=== PATIENT | female | born 1990 | race African-American/Black ===

== ENCOUNTER 2025-05-03 13:01 | Outpatient (CLI) | payer OTHER, SELFPAY ==
[2025-05-03 13:51] VITALS: BP 127/58; PULSE 88
--- OUTSIDE RECORDS SUMMARY | 2025-05-03 14:18 | XMS_ITS | Continuity of Care Document ---
Author Organization [facility] Address [address] [place] [address] [place] [address] Assessment No assessment recorded. Plan of Treatment Reminders Order Date Submit Date Provider Last Modified By Organization Details Last Modified Time Details Appointments OB ROUTINE 2024 09:00A M QASIM LU MD Not available Not available Not available U/S OB BPP 2025 08:30A M ULTRASOUND Not available Not available Not available NST 2025 09:00A M NST SCHEDULE Not available Not available Not available OB ROUTINE 2025 09:30A M Vicky Burris CNM Not available Not available Not available INDUCTI ON 2025 12:00P M Vicky Burris CNM Not available Not available Not available U/S OB BPP 2025 08:30A M ULTRASOUND Not available Not available Not available NST 2025 09:00A M NST SCHEDULE Not available Not available Not available OB ROUTINE 2025 09:45A M Vicky Burris CNM Not available Not available Not available Lab None recorde d. Referral None recorde d. Procedures None recorde d. Surgeries None recorde d. Imaging US, obstetr ic, follow- up 2024 025 [email or web address] [facility], [address], [address], [place], [address], 03/21/2025 18:48:46 Medication Orders None recorde d. Patient TargetsNo targets recorded. Patient InstructionsNo instructions recorded. Reason for Referral None Reported. Results Created Date Observation Date Name Description Value Unit Range Abnormal Flag Note LastModifiedBy Organization Detail LastModifiedTime 03/02/2003/02/2025 HEMAT OCRIT (HCT) HCT 36.2 % (based on docume nted legal sex) 34.0-4 5.0 Not Available [facility] (Lab) [address], [place], [address], 03/03/2025 12:36:52 03/02/2003/02/2025 CBC W/DIF F WBC 14.2 10'3/ uL 3.5-10 .5 high Not Available [facility] (Lab) [address], [place], [address], 03/03/2025 12:36:52 03/02/20 25 03/02/2025 CBC W/DIF F RBC 4.65 10'6/ uL (based on docume nted legal sex) 3.80-5 .20 Not Available [facility] (Lab) [address], [place], [address], 03/03/2025 12:36:52 03/02/20 25 03/02/2025 CBC W/DIF F HGB 12.7 g/dL (based on docume nted legal sex) 11.6-1 5.4 Not Available [facility] (Lab) [address], [place], [address], 03/03/2025 12:36:52 03/02/20 25 03/02/2025 CBC W/DIF F HCT 36.2 % (based on docume nted legal sex) 34.0-4 5.0 Not Available [facility] (Lab) [address] [place], [address], 03/03/2025 12:36:52 03/02/20 25 03/02/2025 CBC W/DIF F MCV 77.8 fL 80.0-9 9.0 low Not Available [facility] (Lab) [address] [place], [address], 03/03/2025 12:36:52 03/02/20 25 03/02/2025 CBC W/DIF F MCH 27.3 pg 27.0-3 4.0 Not Available [facility] (Lab) [address], [place], [address], 03/03/2025 12:36:52 03/02/20 25 03/02/2025 CBC W/DIF F MCHC 35.1 g/dL 32.0-3 5.5 Not Available [facility] (Lab) [address], [place], [address], 03/03/2025 12:36:52 03/02/2003/02/2025 CBC W/DIF F RDW 15.1 % 11.0-1 5.0 high Not Available [facility] (Lab) [address], [place], [address], 03/03/2025 12:36:52 03/02/20 25 03/02/2025 CBC W/DIF F plt 480 10'3/ uL 150-40 0 high Not Available [facility] (Lab) [address], [place], [address], 03/03/2025 12:36:52 03/02/20 25 03/02/2025 CBC W/DIF F MPV 9.4 fL 8.8-12 .1 Not Available [facility] (Lab) [address], [place], [address], 03/03/2025 12:36:52 03/02/20 25 03/02/2025 CBC W/DIF F NRBC's 0.0 % 0.0 Not Available [facility] (Lab) [address], [place], [address], 03/03/2025 12:36:52 03/02/20 25 03/02/2025 CBC W/DIF F absolute NRBCs 0.0 10'3/ uL no refere nce range establ ished Not Available [facility] (Lab) [address], [place], [address], 03/03/2025 12:36:52 03/02/20 25 03/02/2025 CBC W/DIF F neutrophils 75.4 % 34.0-7 3.0 high Not Available [facility] (Lab) [address], [place], [address], 03/03/2025 12:36:52 03/02/20 25 03/02/2025 CBC W/DIF F lymphocytes 17.1 % 15.0-5 0.0 Not Available [facility] (Lab) [address], [place], [address], 03/03/2025 12:36:52 03/02/20 25 03/02/2025 CBC W/DIF F monocytes 4.7 % 1.0-15 .0 Not Available [facility] (Lab) [address], [place], [address], 03/03/2025 12:36:52 03/02/20 25 03/02/2025 CBC W/DIF F eosinophils 1.4 % 0.0-8. 0 Not Available [facility] (Lab) [address], [place], [address], 03/03/2025 12:36:52 03/02/20 25 03/02/2025 CBC W/DIF F basophils 0.4 % 0.0-2. 0 Not Available [facility] (Lab) [address], [place], [address], 03/03/2025 12:36:52 03/02/20 25 03/02/2025 CBC W/DIF F immature granulocytes 1.0 % no define d refere nce range Immat ure Granu locyt es (IG) repre sents autom ated enume ratio n of Metam yeloc ytes, Myelo cytes and Promy elocy arnel when IG is < 5%. Blast s are not inclu ded in IG and repor sanjuana separ ately if prese nt. Not Available [facility] (Lab) [address], [place], [address], 03/03/2025 12:36:52 03/02/2003/02/2025 CBC W/DIF F absolute neutrophils 10.7 10'3/ uL 1.5-8. 0 high Not Available [facility] (Lab) [address], [place], [address], 03/03/2025 12:36:52 03/02/20 25 03/02/2025 CBC W/DIF F absolute lymphocytes 2.4 10'3/ uL 1.0-4. 0 Not Available [facility] (Lab) [address], [place], [address], 03/03/2025 12:36:52 03/02/20 25 03/02/2025 CBC W/DIF F absolute monocytes 0.7 10'3/ uL 0.2-1. 0 Not Available [facility] (Lab) [address], [place], [address], 03/03/2025 12:36:52 03/02/20 25 03/02/2025 CBC W/DIF F absolute eosinophils 0.2 10'3/ uL 0.0-0. 6 Not Available [facility] (Lab) [address], [place], [address], 03/03/2025 12:36:52 03/02/20 25 03/02/2025 CBC W/DIF F absolute basophils 0.1 10'3/ uL 0.0-0. 3 Not Available [facility] (Lab) [address], [place], [address], 03/03/2025 12:36:52 03/02/20 25 03/02/2025 CBC W/DIF F absolute immature granulocytes 0.1 10'3/ uL 0.00-0 .10 Refer ence range s for nonbi nary/ inter sex or unspe cifie d gende r patie nts have not been estab lishe kareem Jacob e refer to the follo wing table for range s estab lishe d for cisge nder patie nts and evalu ate in the clini matthieu [place] xt of the indiv idual patie nt: https :[email or web address] almonte book. nm.or g/gen derx Not Available [facility] (Lab) [address], [place], [address], 03/03/2025 12:36:52 03/02/2003/02/2025 HEMOG LOBIN (HGB) HGB 12.7 g/dL (based on docume nted legal sex) 11.6-1 5.4 Not Available [facility] (Lab) [address], [place], [address], 03/03/2025 12:36:52 03/02/2003/02/2025 GTT - GESTA MIGUEL ÁNGEL L SCREE N, ACOG OB glucose, 1 hour screen 179 mg/dL 70-135 high Not Available [facility] (Lab) [address], [place], [address], 03/03/2025 12:36:53 03/02/2003/02/2025 HEPAT ITIS B SURFA CE ANTIG EN hepatitis B surface antigen Non-re active non-re active The test metho d is elect deandre mil inesc ence immun oassa y perfo rmed on the Deandre Stan e801. Value s obtai pauline with diffe rent assay metho ds by other labor atori es canno t be used inter fonseca eably . Not Available [facility] (Lab) [address], [place], [address], 03/03/2025 12:36:53 03/02/2003/02/2025 HIV 1/2 ANTIG EN/AN TIBOD Y, REFLE X CONFI RMATI ON HIV antigen/anti body Nonrea ctive nonrea ctive HIV-1 antig en and HIV-1 /HIV- 2 antib odies were not detec sanjuana. No labor atory evide nce of HIV infec tion. Not Available [facility] (Lab) [address], [place], [address], 03/03/2025 12:36:54 03/02/2003/02/2025 HEPAT ITIS C ANTIB ANN SCREE N, REFLE X TO CONFI RMATI ON hepatitis C antibody Non-re active non-re active Antib odies to HCV Not Detec sanjuana, does not exclu de the possi bilit y of expos ure to HCV. The test metho d is elect deandre milum inesc ence immun oassa y perfo rmed on the Deandre Stan e801. Value s obtai pauline with diffe rent assay metho ds by other labor atori es canno t be used inter fonseca eably . Not Available [facility] (Lab) [address], [place], [address], 03/03/2025 12:36:54 03/02/2003/02/2025 TYPE/ RH/SC REEN ABO/Rh type A POS Not Available [facility] (Lab) [address], [place], [address], 03/03/2025 12:36:55 03/02/2003/02/2025 TYPE/ RH/SC REEN antibody screen NEG Not Available [facility] (Lab) [address], [place], [address], 03/03/2025 12:36:55 03/02/2003/02/2025 TYPE/ RH/SC REEN exp date 2024 23:59 Not Available [facility] (Lab) [address], [place], [address], 03/03/2025 12:36:55 03/02/20 25 03/02/2025 RUBEL LA IGG ANTIB ANN, QUANT rubella antibodies, IgG Reacti ve reacti ve Not Available [facility] (Lab) [address] [place], [address], 03/03/2025 12:36:55 03/02/20 25 03/02/2025 RUBEL LA IGG ANTIB ANN, QUANT rubella antibodies, IgG quant 33.3 IU/mL >=10 Non-r eacti ve (Non- Immun e) <10 IU/mL React chris (Immu ne) > or = 10 IU/mL Not Available [facility] (Lab) [address], [place], [address], 03/03/2025 12:36:55 03/02/20 25 03/02/2025 HEMOG LOBIN A1C hemoglobin A1C 6.1 % 4.0-5. 6 high The Ameri can [employer] arnel [employer] iatio n recom mends that a prima ry goal of thera py shoul d be a HBA1C of < 7% and that physi cians shoul d reeva luate the treat ment regim en in patie nts with HBA1C value s consi stent ly > 8%. <5.7% Yaimle l 5.7 - 6.4% Incre ased risk for diabe arnel >=6.5 % Diagn ostic of diabe arnel <7.0% Goal of thera py >8.0% Actio n sugge sted Not Available [facility] (Lab) [address], [place], [address], 03/03/2025 12:36:55 03/02/20 25 03/02/2025 RPR SCREE N, REFLE X TITER /CONF IRMAT ION RPR qualitative Nonrea ctive nonrea ctive Not Available [facility] (Lab) [address], [place], [address], 03/03/2025 12:36:56 03/08/20 25 03/08/2025 GTT - GESTA MIGUEL ÁNGEL L, 3 HOUR, ACOG glucose, fasting acog 83 mg/dL 70-94 Not Available [facility] (Lab) [address] [place], [address], 03/09/2025 07:22:26 03/08/20 25 03/08/2025 GTT - GESTA MIGUEL ÁNGEL L, 3 HOUR, ACOG glucose, 1 hour acog 167 mg/dL 70-179 Not Available [facility] (Lab) [address], [place], [address], 03/09/2025 07:22:26 03/08/20 25 03/08/2025 GTT - GESTA MIGUEL ÁNGEL L, 3 HOUR, ACOG glucose, 2 hour acog 186 mg/dL 70-154 high Not Available [facility] (Lab) [address], [place], [address], 03/09/2025 07:22:26 03/08/20 25 03/08/2025 GTT - GESTA MIGUEL ÁNGEL L, 3 HOUR, ACOG glucose, 3 hour acog 173 mg/dL 70-139 high Not Available [facility] (Lab) [address], [place], [address], 03/09/2025 07:22:26 02/17/20 25 02/16/2025 US, obste tric, follo w-up No observ ation record ed. [email or web address] [facility] [address], [place], [address], 02/16/2025 17:56:15 02/17/20 25 02/16/2025 US, obste tric, follo w-up No observ ation record ed. [email or web address] [facility] [address], [place], [address], 03/01/2025 12:13:11 03/01/2003/01/2025 US, obste tric, limit ed No observ ation record ed. [email or web address] [facility] [address], [place], [address], 03/02/2025 09:56:04 03/01/20 25 03/01/2025 US, obste tric, limit ed No observ ation record ed. [email or web address] [facility] [address], [place], [address], 03/01/2025 16:15:36 03/21/20 25 03/21/2025 US, obste tric, follo w-up No observ ation record ed. [email or web address] [facility] [address], [place], [address], 03/21/2025 15:50:40 03/21/20 25 03/21/2025 US, obste tric, follo w-up No observ ation record ed. [email or web address] [facility] [address], [place], [address], 03/25/2025 16:14:26 04/04/20 25 04/04/2025 imagi ng/di agnos tic resul t No observ ation record ed. [facility] [address], [place], [address], 04/05/2025 10:52:00 04/12/20 25 04/12/2025 US, obste tric, follo w-up No observ ation record ed. [email or web address] [address], [place], [address], 04/12/2025 14:17:26 04/12/20 25 04/12/2025 US, obste tric, follo w-up No observ ation record ed. [email or web address] [facility] [address], [place], [address], 04/15/2025 10:42:08 04/26/20 25 04/26/2025 US, obste tric, follo w-up No observ ation record ed. [email or web address] [facility] [address], [address], 04/26/2025 16:57:52 04/27/20 25 04/26/2025 US, obste tric, follo w-up No observ ation record ed. [email or web address] [facility] [address] [place], [address], 04/28/2025 22:03:11 04/30/20 25 04/30/2025 imagi ng/di agnos tic resul t No observ ation record ed. [facility] [address], [place], [address], 05/02/2025 11:12:20 05/03/20 25 05/03/2025 imagi ng/di agnos tic resul t No observ ation record ed. [facility] [address] [place], [address], 05/03/2025 13:20:09 05/03/20 25 05/03/2025 imagi ng/di agnos tic resul t No observ ation record ed. [facility] [address], [place], [address], 05/03/2025 13:24:51 Result Notes None recorded. Problems Name Problem SNOMED Code Status Onset Date Resolution Date Notes Provider Name and Address Organization Details Recorded Time 61126569 Active 2024 Nikki miguel [facility] 15:10:19 Uncomplic ated asthma 992476700 Active 2024 albuterol inhlaer prn 2 rounds steroids in plan daily inhaler Vicky Burris CNM [address], [place], [address], [place] [facility] 17:45:27 Platelet count above reference range 762944752 Active 2024 480 @ 28wks rpt labs Olesya miguel [facility] 12:16:37 Gestation al diabetes mellitus 37711564 Active 2024 checking bs QID, serial growth us Faxed Referral [facility] for DT 03/09 Olesya miguel [facility] 5 12:25:55 Infection by Trichomon as 80381661 Active [address] [facility], [facility] 5 14:24:54 Infection by Trichomon as 53348036 Active [address] [facility], [facility] 5 14:24:54 Notes:Some problems listed i n Document: #[id number] could not be added to this patient's chart. Please review this document and add these problems to the patient's chart manually as needed. Problem Notes None recorded. Medical Equipment None Reported. Allergies Allergen ID Allergen Name Allergen Category Reaction Reaction Severity Criticality Documentation Date Start Date Code Code System Note Provider Name and Address Organization Details Recorded Time 57941 banana extract food,medi cation anaphylax is Not available Not available 02/16/2025 25365 9 RxNorm Nikki Rosalie [facility] 14:34:13 Medications Name Sig Start Date Stop Date Status Note LastModified by Organization Details LastModified Time aspirin 81 mg capsule active Not Available Not Available N ot Available metformin 500 mg tablet TAKE 1 TABLET BY MOUTH TWICE DAILY active Not Available Not Available No t Available fluconazole 150 mg tablet TAKE 1 TABLET BY MOUTH DIRECTED active Not Available Not Available No t Available prednisone 20 mg tablet PLEASE SEE ATTACHED FOR DETAILED DIRECTION S 02/16 completed Not Available Not Available Not Available metronidazo le 500 mg tablet TAKE 4 TABLETS BY MOUTH 1 TIME AT THE SAME TIME active Not Available Not Available No t Available albuterol sulfate HFA 90 mcg/actuati on aerosol inhaler INHALE 2 PUFFS EVERY 4 HOURS BY INHALATIO N ROUTE NEEDED, FOR WHEEZING. active Not Available Not Available No t Available Microlet Lancet TEST FOUR TIMES DAILY active Not Available Not Available No t Available 1 daily 02/16 completed Not Available Not Available Not Available Pulmicort Flexhaler 180 mcg/actuati on breath activated TAKE 1 PUFF BY MOUTH 2 TIMES PER DAY FOR 30 DAYS START TAKING AFTER PREDNISON E active Not Available Not Available No t Available Sure Comfort Pen Needle 31 gauge x 3/16 USE 1 NEEDLE INSTRUCTE D 2 TIMES DAILY active Not Available Not Available No t Available budesonide- formoterol HFA 80 mcg-4.5 mcg/actuati on aerosol inhaler active Not Available Not Available Not Available Lantus Solostar U-100 Insulin 100 unit/mL (3 mL) subcutaneou s pen PRIME NEEDLE WITH 2 UNITS THEN INJECT 10 UNITS UNDER THE SKIN EVERY MORNING AND AT NIGHT. INCREASE DIRECTED BY MD UP TO MAX OF 50 UNITS DAILY active Not Available Not Available No t Available + DHA 28 mg iron-800 mcg-200 mg oral pack active Not Available Not Available No t Available Contour Plus Test Strip TEST FOUR TIMES DAILY active Not Available Not Available No t Available Contour Plus Blue Meter USE TO TEST FOUR TIMES DAILY active Not Available Not Available No t Available Vitals None Recorded Social History Question Answer Notes LastModified by Organizat ion Details LastModified Time Tobacco Smoking Status Never Smoker Nikki miguel, [facility] 02/16/2025 14:36:54 Do You Have An Advance Directive? No [email or web address] Information n ot available 02/16/2025 How Many Years Have You Consumed Alcohol? 13 Information not available 02/16/2025 Are You Blind Or Do You Have Difficulty Seeing? No [email or web address] Information n ot available 02/16/2025 What Is Your Level Of Caffeine Consumption? Occasional [email or web address] Information not available 02/16/2025 In The 14 Days Before Symptom Onset, Have You Had Close Contact With A Laboratory-confirm ed COVID-19 While That Case Was Ill? No [email or web address] Information n ot available 02/16/2025 In The 14 Days Before Symptom Onset, Have You Had Close Contact With A Person Who Is Under Investigation For COVID-19 While That Person Was Ill? No [email or web address] Information not available 02/16/2025 Have You Been To An Area Known To Be High Risk For COVID-19? No Information not available 02/16/2025 Are You Deaf Or Do You Have Serious Difficulty Hearing? No [email or web address] Information not available 02/16/2025 What Type Of Diet Are You Following? REGULAR [email or web address] Information n ot available 02/16/2025 What Is The Highest Grade Or Level Of School You Have Completed Or The Highest Degree You Have Received? MO19438-5 Information not available 02/16/2025 Are There Any Guns Present In Your Home? No Information not available 02/16/2025 Do You Use Protection During Sex? Always [email or web address] Information not available 02/16/2025 Do You Use Your Seat Belt Or Car Seat Routinely? Yes [email or web address] Information not available 02/16/2025 Are You Sexually Active? Yes Information not available 02/16/2025 Do You Have Smoke And Carbon Monoxide Detectors In Your Home? Yes [email or web address] Information not available 02/16/2025 How Much Tobacco Do You Smoke? No [email or web address] Information not available 02/16/2025 Do You Use Sunscreen Routinely? Yes [email or web address] Information not available 02/16/2025 Has Tobacco Cessation Counseling Been Provided? No Information not available 02/16/2025 Have You Used IV Drugs? No [email or web address] Information not available 02/16/2025 Do You Have Difficulty Walking Or Climbing Stairs? No Information not available 02/16/2025 Sex: Unknown Functional Status Question Answer Note LastModified by Organizat ion Details LastModified Time Do you use any illicit or recreational drugs? No Information not available 02/16/2025 Do you or have you ever used any other forms of tobacco or nicotine? No Information not available 02/16/2025 What is your level of alcohol consumption? None [email or web address] Information not available 02/16/2025 Are you currently employed? Yes Information not available 02/16/2025 Are you able to walk independently without assistance or assistive devices? 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 No [email or web address] Information not available 02/16/2025 What is your exercise level? Moderate [email or web address] Information not available 02/16/2025 Mental Status Question Answer Note LastModified by Organization D etails LastModified Time Do you feel stressed (tense, restless, nervous, or anxious, or unable to sleep at night)? AZ1389-3 [email or web address] Information not available 02/16/2025 Family History Relationship Description Onset Age of this Age Resolved Age Notes LastModified by Organization Details LastModified Time Mother Diabetes mellitus [email or web address] Not available 2024 14:34:18 Maternal Aunt Diabetes mellitus [email or web address] Not available 2024 14:34:18 Maternal Grandmother Diabetes mellitus [email or web address] Not available 2024 14:34:18 Medical History Condition Response Allergies (Food, seasonal, environmental ) Y Anxiety Disorder Y Asthma Y Depression/ depression Y Gynecological History Statement/Question Response Abnormal Pap N Flow Moderate Date of LMP 08/18/2024 On BCP's at Conception? N N Was last menstrual period normal Y STIs/STDs N HPV Vaccine N Duration of Flow (days) 4 Current Control Method Are cycles usually normal Y Frequency of Cycle (Q days) 28 Sexually Active? Y Menses Monthly Y Age of first menstrual cycle 13 Date of Last Pap Smear Sexual Problems? N LMP Definite N Obstetrics History GPAL:G 1 P 0 0 0 0 Past Encounters Encounter ID Performer Location Encounter Start Date Encounter Closed Date Diagnosis/Indication Diagnosis SNOMED-CT Code Diagnosis ICD10 Code Diagnosis IMO Codes Diagnosis Note [id number] Oracio Yoon MD [facility] [address],[place] [address] 03/01/2025 14:44:23 03/01/2025 15:32:30 Obstetric procedure 329275668 Z03.71 Z3A.27 6210187 [id number] Vicky Burris [facility] [address],[place] [address] 03/02/2025 09:48:08 03/02/2025 10:27:40 Gestation period, 28 weeks 37554977 Z3A.28 [id number] [facility] [address],[place] [address] 03/16/2025 09:31:29 03/16/2025 13:26:40 Gestational diabetes mellitus 92068510 O24.419 [id number] Oracio Yoon MD [facility] [address],[place] [address] 03/21/2025 09:09:41 03/21/2025 09:51:13 Gestational diabetes mellitus 99276852 O24.410 Z3A.30 [id number] Health Concerns Section Related Observation LastModified by Organization Detai ls LastModified Time None Recorded Concern Status LastModified by Organization Details LastModified Time None Recorded Payers Encounter Date Sequence Insurance Name Policy Number Policy Herrera Covered Member ID Herrera Member ID Guarantor Name 03/21/2025 1 [facility] Carolyne Sanchez [id number] Carolyne Sanchez OBGyn Episode Ob Episode Information Episode Created Date Number of Fetuses Patient Bloodtype Patient rh Status Prepregnancy Weight lbs Domestic Partner Domestic Partner Phone Father Name Careers Adviser Status 02/15/20 25 1 OPEN Fetus Data First Name Last Name Admitted to NICU Weight (g) Sex Living Outcome Pediatric Complications Fetus ID Race Codes Race Delivery Type [id number] Problems Problem Notes transfer of care- records re questedfluid high normal will rpt at next visit Problem Name Start Date End Date Resolution Snomed Code Not e Infection by Trichomonas 04/06/2025 18394927 Uncomplicated asthma 02/16/2025 21243634 1 albuterol inhlaer prn2 rounds steroids in pregnancyplan daily inhaler Gestational diabetes mellitus 03/09/2025 40869269 checking bs QID , serial growth usFaxed Referral [facility] for DT 03/09 Platelet count above reference range 03/04/2025 [id number] 480 @ 28wks rpt labs Vaibhav Calculation Initial Vaibhav Date Initial Exam Date Initial Exam Provider Initial Ultrasound Date Last Menstrual Period Date Ultra Sound Weeks Gestation 02/14/2025 0 Eighteen To Twenty Week Vaibhav Update Ultra Sound Date Fundal Height At Umbil Quickening Date Ultra Sound Latest Weeks Gestation Final Vaibhav Confirmed By Final Vaibhav Confirmed Date Final Vaibhav Date Ultra Sound Latest Days Gestation 02/17/20 25 25 05/25/19 26 3 Pre- Flowsheet Flowsheet Date 02/16/2025 Vega Score Blood Edema Fundus Height Fundus Units Glucose Ketones Leukocytes Nitrite Labor Signs Protein Cervic Dilation Cervic Effacement Cervic Station Type Weight in lbs Pre/Post Dialysis Refused Weight 195.705907456294 BP Diastolic BP Location Tested BP Systolic BP Type 82 L arm 124 sitting Fetus Heart Rate Present Fetus Movement A Yes Comments transfer of care, records pe nding, hx asthma exacerbated by will plan daily inhaler, growth 12% will have pt repeat today. +FM, reviewed pt history precautions and education plan 28 week gct and rpt us, continue care Flowsheet Date 02/16/2025 Vega Score Blood Edema Fundus Height Fundus Units Glucose Ketones Leukocytes Nitrite Labor Signs Protein Cervic Dilation Cervic Effacement Cervic Station Type Weight in lbs Pre/Post Dialysis Refused BP Diastolic BP Location Tested BP Systolic BP Type Fetus Heart Rate Present Fetus Movement Comments Flowsheet Date 03/01/2025 Vega Score Blood Edema Fundus Height Fundus Units Glucose Ketones Leukocytes Nitrite Labor Signs Protein Cervic Dilation Cervic Effacement Cervic Station Type Weight in lbs Pre/Post Dialysis Refused BP Diastolic BP Location Tested BP Systolic BP Type Fetus Heart Rate Present Fetus Movement Comments Flowsheet Date 03/02/2025 Vega Score Blood Edema Fundus Height Fundus Units Glucose Ketones Leukocytes Nitrite Labor Signs Protein Cervic Dilation Cervic Effacement Cervic Station Type Weight in lbs Pre/Post Dialysis Refused [id number] BP Diastolic BP Location Tested BP Systolic BP Type 77 L arm 116 sitting Fetus Heart Rate Present A 147 Present Fetus Movement A Yes Comments reviewed us from yesterday, delia wnl, no records recieved plan all labs today, gct today had flu, rec tdap, precautions and education Flowsheet Date 03/16/2025 Vega Score Blood Edema Fundus Height Fundus Units Glucose Ketones Leukocytes Nitrite Labor Signs Protein Cervic Dilation Cervic Effacement Cervic Station Type Weight in lbs Pre/Post Dialysis Refused Weight 200.368462472354 BP Diastolic BP Location Tested BP Systolic BP Type 74 L arm 121 sitting Fetus Heart Rate Present Fetus Movement Comments reviewed blood sugars fastin g ok, meals some elevated, unable to get creative strategist due to insurance, diabetes handout given, reviewed meals, education and precautions f/u 2 weeks Flowsheet Date 03/21/2025 Vega Score Blood Edema Fundus Height Fundus Units Glucose Ketones Leukocytes Nitrite Labor Signs Protein Cervic Dilation Cervic Effacement Cervic Station Type Weight in lbs Pre/Post Dialysis Refused BP Diastolic BP Location Tested BP Systolic BP Type Fetus Heart Rate Present Fetus Movement Comments Flowsheet Date 03/30/2025 Vega Score Blood Edema Fundus Height Fundus Units Glucose Ketones Leukocytes Nitrite Labor Signs Protein Cervic Dilation Cervic Effacement Cervic Station Type Weight in lbs Pre/Post Dialysis Refused Weight 202.050866855994 BP Diastolic BP Location Tested BP Systolic BP Type 74 L arm 111 sitting Fetus Heart Rate Present A 150 Present Fetus Movement A Yes Comments anxiety increasing has been on ssri made her suicidal, will have her consult isac devlin apn. continue seeing therapist, check vaginal culture has increased d/c, reviewed blood sugars with dr. lu and will make different breakfast choices and cont to monitor, precautions and education f/u as scheduled Flowsheet Date 04/12/2025 Vega Score Blood Edema Fundus Height Fundus Units Glucose Ketones Leukocytes Nitrite Labor Signs Protein Cervic Dilation Cervic Effacement Cervic Station Type Weight in lbs Pre/Post Dialysis Refused BP Diastolic BP Location Tested BP Systolic BP Type Fetus Heart Rate Present Fetus Movement Comments Flowsheet Date 04/12/2025 Vega Score Blood Edema Fundus Height Fundus Units Glucose Ketones Leukocytes Nitrite Labor Signs Protein Cervic Dilation Cervic Effacement Cervic Station Type Weight in lbs Pre/Post Dialysis Refused 203.41378652548 BP Diastolic BP Location Tested BP Systolic BP Type 72 L arm 108 sitting Fetus Heart Rate Present Fetus Movement A Yes Comments unable to get insulin due to insurance, disc with dr. lu, start metformin 500mg BID, [facility] consult, not following diet discussed risks including LGA, lung immaturity and demise, pt needs NSTS and BPP will try and schedule at [facility] due to insurance conflict. precautions and education f/u 2 weeks here , or earlier if needs to do her testing here Flowsheet Date 04/26/2025 Vega Score Blood Edema Fundus Height Fundus Units Glucose Ketones Leukocytes Nitrite Labor Signs Protein Cervic Dilation Cervic Effacement Cervic Station Type Weight in lbs Pre/Post Dialysis Refused Weight 204.440038485368 BP Diastolic BP Location Tested BP Systolic BP Type 78 L arm 116 sitting Fetus Heart Rate Present A 138 Present Fetus Movement A Yes Comments +FM metformin 500mg bid has [facility]sm appt today with nst bpp will also do that next week plan iol 05/17 at 1200, gbs after may 05, education and precautions f/u as scheduled Flowsheet Date 05/03/2025 Vega Score Blood Edema Fundus Height Fundus Units Glucose Ketones Leukocytes Nitrite Labor Signs Protein Cervic Dilation Cervic Effacement Cervic Station 0cm 50% -2 Type Weight in lbs Pre/Post Dialysis Refused Weight 205.995222745549 BP Diastolic BP Location Tested BP Systolic BP Type 80 L arm 119 sitting Fetus Heart Rate Present A 135 Fetus Movement A Yes Comments Started insulin with MFM, st arted on Friday. Fastings elevated x1, 1h postprandial goal <130 per MFM, still spiking postprandial, last night 176. Good movement. No bleeding. Irregular contractions. GBS collected. RTC 1 week. Menstrual History Last Menstrual Date Menses Monthly On Bcp Conception Prior Menses Frequency Hcg Plus Date Menarche Onset Age Delivery Information Delivery Date Delivery Type Labor Anesthesia Weeks Gestation Incision Type Labor Labor Length Hrs Delivered By Post Complications Tubal Sterilization Discharge Date Comments Discharge Information Feeding Method Contraceptive Method Maternal HG B and HCT Levels
--- OUTSIDE RECORDS SUMMARY | 2025-05-03 14:18 | XMS_ITS | Data Portability ---
Author Organization [facility] Address [address] [place] [address] Assessment Encounter Date Assessment Date Assessment LastModified by Organization Details LastModified Time 03/30/2025 03/30/2025 Patient is _32__weeks . Discussed plan. [email or web address] Not available 03/30/2025 18:12:55 04/12/2025 04/12/2025 Patient is ___33weeks . Discussed plan. Not available 04/12/2025 13:50:32 04/26/2025 04/26/2025 Patient is _35__weeks . Discussed plan. [email or web address] Not available 04/26/2025 10:09:15 Plan of Treatment Reminders Order Date Submit [...] Not available Not available Not available Lab unliste d lab - women[facility] swab plus, KEVON 2024 025 [facility] (Lab), [address], [place], [address], 04/01/2025 15:13:33 Referral None recorde d. Procedures None recorde d. Surgeries None recorde d. Imaging US, obstetr ic, follow- up 2024 025 [facility], [facility] [address], [place], [address], 04/12/2025 19:52:39 Medication Orders None recorde d. Patient TargetsNo targets recorded. Patient InstructionsNo instructions recorded. Reason for Referral None Reported. Results Created Date Observation Date Name Description Value Unit Range Abnormal Flag Note LastModifiedBy Organization Detail LastModifiedTime 03/02/2003/02/2025 HEMAT OCRIT (HCT) HCT 36.2 % (based on docume nted legal sex) 34.0-4 5.0 Not Available [facility] (Lab) [address], [place], [address], 03/03/2025 12:36:52 03/02/20 25 03/02/2025 CBC W/DIF F WBC 14.2 10'3/ uL 3.5-10 .5 high Not Available [facility] (Lab) [address], [place], [address], 03/03/2025 12:36:52 03/02/20 25 03/02/2025 CBC W/DIF F RBC 4.65 10'6/ uL (based on docume nted legal sex) 3.80-5 .20 Not Available [facility] (Lab) [address], [place], [address], 03/03/2025 12:36:52 03/02/20 25 03/02/2025 CBC W/DIF F HGB 12.7 g/dL (based on docume nted legal sex) 11.6-1 5.4 Not Available [facility] (Lab) [address] [facility], [place], [address], 03/03/2025 12:36:52 03/02/20 25 03/02/2025 CBC W/DIF F HCT 36.2 % (based on docume nted legal sex) 34.0-4 5.0 Not Available [facility] (Lab) [address] [facility], [place], [address], 03/03/2025 12:36:52 03/02/20 25 03/02/2025 CBC W/DIF F MCV 77.8 fL 80.0-9 9.0 low Not Available [facility] (Lab) [address] [facility], [place], [address], 03/03/2025 12:36:52 03/02/20 25 03/02/2025 CBC W/DIF F MCH 27.3 pg 27.0-3 4.0 Not Available [facility] (Lab) [address] [facility], [place], [address], 03/03/2025 12:36:52 03/02/20 25 03/02/2025 CBC W/DIF F MCHC 35.1 g/dL 32.0-3 5.5 Not Available [facility] (Lab) [address] [facility], [place], [address], 03/03/2025 12:36:52 03/02/20 25 03/02/2025 CBC W/DIF F RDW 15.1 % 11.0-1 5.0 high Not Available [facility] (Lab) [address] [facility], [place], [address], 03/03/2025 12:36:52 03/02/20 25 03/02/2025 CBC W/DIF F plt 480 10'3/ uL 150-40 0 high Not Available [facility] (Lab) [address] [facility], [place], [address], 03/03/2025 12:36:52 03/02/20 25 03/02/2025 CBC W/DIF F MPV 9.4 fL 8.8-12 .1 Not Available [facility] (Lab) [address] [facility], [place], [address], 03/03/2025 12:36:52 03/02/20 25 03/02/2025 CBC W/DIF F NRBC's 0.0 % 0.0 Not Available [facility] (Lab) [address] [facility], [place], [address], 03/03/2025 12:36:52 03/02/20 25 03/02/2025 CBC W/DIF F absolute NRBCs 0.0 10'3/ uL no refere nce range establ ished Not Available [facility] (Lab) [address] [facility], [place], [address], 03/03/2025 12:36:52 03/02/20 25 03/02/2025 CBC W/DIF F neutrophils 75.4 % 34.0-7 3.0 high Not Available [facility] (Lab) [address] [facility], [place], [address], 03/03/2025 12:36:52 03/02/20 25 03/02/2025 CBC W/DIF F lymphocytes 17.1 % 15.0-5 0.0 Not Available [facility] (Lab) [address] [facility], [place], [address], 03/03/2025 12:36:52 03/02/20 25 03/02/2025 CBC W/DIF F monocytes 4.7 % 1.0-15 .0 Not Available [facility] (Lab) [address] [facility], [place], [address], 03/03/2025 12:36:52 03/02/20 25 03/02/2025 CBC W/DIF F eosinophils 1.4 % 0.0-8. 0 Not Available [facility] (Lab) [address] [facility], [place], [address], 03/03/2025 12:36:52 03/02/20 25 03/02/2025 CBC W/DIF F basophils 0.4 % 0.0-2. 0 Not Available [facility] (Lab) [address] [facility], [place], [address], 03/03/2025 12:36:52 03/02/20 25 03/02/2025 CBC W/DIF [...] separ ately if prese nt. Not Available [facility] (Lab) [address] [facility], [place], [address], 03/03/2025 12:36:52 03/02/20 25 03/02/2025 CBC W/DIF F absolute neutrophils 10.7 10'3/ uL 1.5-8. 0 high Not Available [facility] (Lab) [address] [facility], [place], [address], 03/03/2025 12:36:52 03/02/20 25 03/02/2025 CBC W/DIF F absolute lymphocytes 2.4 10'3/ uL 1.0-4. 0 Not Available [facility] (Lab) [address] [facility], [place], [address], 03/03/2025 12:36:52 03/02/20 25 03/02/2025 CBC W/DIF F absolute monocytes 0.7 10'3/ uL 0.2-1. 0 Not Available [facility] (Lab) [address] [facility], [place], [address], 03/03/2025 12:36:52 03/02/20 25 03/02/2025 CBC W/DIF F absolute eosinophils 0.2 10'3/ uL 0.0-0. 6 Not Available [facility] (Lab) [address] [facility], [place], [address], 03/03/2025 12:36:52 03/02/20 25 03/02/2025 CBC W/DIF F absolute basophils 0.1 10'3/ uL 0.0-0. 3 Not Available [facility] (Lab) [address] [facility], [place], [address], 03/03/2025 12:36:52 03/02/20 25 03/02/2025 CBC W/DIF F absolute immature granulocytes 0.1 10'3/ uL 0.00-0 .10 Refer ence range s for nonbi nary/ inter sex or unspe cifie d gende r patie nts have not been estab lishe d. Pleas e refer to the follo wing table for range s estab lishe d for cisge nder patie nts and evalu ate in the clini matthieu [place] xt of the indiv idual patie nt: https ://la suzy book. nm.or g/gen derx Not Available [facility] (Lab) [address] [facility], [place], [address], 03/03/2025 12:36:52 03/02/20 25 03/02/2025 HEMOG LOBIN (HGB) HGB 12.7 g/dL (based on docume nted legal sex) 11.6-1 5.4 Not Available [facility] (Lab) [address] [facility], [place], [address], 03/03/2025 12:36:52 03/02/20 25 03/02/2025 GTT - GESTA MIGUEL ÁNGEL Juan Ramon OVALLE N, ACOG OB glucose, 1 hour screen 179 mg/dL 70-135 high Not Available [facility] (Lab) [address] [facility], [place], [address], 03/03/2025 12:36:53 03/02/20 25 03/02/2025 HEPAT ITIS B SURFA CE ANTIG EN hepatitis B surface antigen Non-re active non-re active The test metho d is elect deandre milum inesc ence immun oassa y perfo rmed on the Deandre Stan e801. Value s obtai pauline with diffe rent assay metho ds by other labor atori es canno t be used inter [facility] . Not Available [facility] (Lab) [address] [facility], [place], [address], 03/03/2025 12:36:53 03/02/2003/02/2025 HIV 1/2 ANTIG EN/AN TIBOD Y, REFLE X CONFI RMATI ON HIV antigen/anti body Nonrea ctive nonrea ctive HIV-1 antig en and HIV-1 /HIV- 2 antib odies were not detec sanjuana. No labor atory evide nce of HIV infec tion. Not Available [facility] (Lab) [address] [facility], [place], [address], 03/03/2025 12:36:54 03/02/2003/02/2025 HEPAT ITIS C ANTIB [...] atori es canno t be used inter [facility] . Not Available [facility] (Lab) [address] [facility], [place], [address], 03/03/2025 12:36:54 03/02/2003/02/2025 TYPE/ RH/SC REEN ABO/Rh type A POS Not Available [facility] (Lab) [address] [facility], [place], [address], 03/03/2025 12:36:55 03/02/2003/02/2025 TYPE/ RH/SC REEN antibody screen NEG Not Available [facility] (Lab) [address] [facility], [place], [address], 03/03/2025 12:36:55 03/02/20 25 03/02/2025 TYPE/ RH/SC REEN exp date 2024 23:59 Not Available [facility] (Lab) [address] [facility], [place], [address], 03/03/2025 12:36:55 03/02/20 25 03/02/2025 RUBEL LA IGG ANTIB ANN, QUANT rubella antibodies, IgG Reacti ve reacti ve Not Available [facility] (Lab) [address] [facility], [place], [address], 03/03/2025 12:36:55 03/02/20 25 03/02/2025 RUBEL LA IGG ANTIB ANN, QUANT rubella antibodies, IgG quant 33.3 IU/mL >=10 Non-r eacti ve (Non- Immun e) <10 IU/mL React chris (Immu ne) > or = 10 IU/mL Not Available [facility] (Lab) [address] [facility], [place], [address], 03/03/2025 12:36:55 03/02/20 25 03/02/2025 HEMOG LOBIN A1C hemoglobin A1C 6.1 % 4.0-5. 6 high The Ameri can [facility] [employer] i[facility] n recom mends that a prima ry goal of thera py gonzalesul d be a HBA1C of < 7% and that physi cians shoul d reeva luate the treat ment regim en in patie nts with HBA1C value s consi stent ly > 8%. <5.7% Yamile l 5.7 - 6.4% Incre ased risk for diabe arnel >=6.5 % Diagn ostic of diabe arenl <7.0% Goal of thera py >8.0% Actio n sugge sted Not Available [facility] (Lab) [address], [place], [address], 03/03/2025 12:36:55 03/02/20 25 03/02/2025 RPR SCREE N, REFLE X TITER /CONF IRMAT ION RPR qualitative Nonrea ctive nonrea ctive Not Available [facility] (Lab) [address] [facility], [place], [address], 03/03/2025 12:36:56 03/08/20 25 03/08/2025 GTT - GESTA MIGUEL ÁNGEL L, 3 HOUR, ACOG glucose, fasting acog 83 mg/dL 70-94 Not Available [facility] (Lab) [address] [facility], [place], [address], 03/09/2025 07:22:26 03/08/20 25 03/08/2025 GTT - GESTA MIGUEL ÁNGEL L, 3 HOUR, ACOG glucose, 1 hour acog 167 mg/dL 70-179 Not Available [facility] (Lab) [address] [facility], [place], [address], 03/09/2025 07:22:26 03/08/20 25 03/08/2025 GTT - GESTA MIGUEL ÁNGEL L, 3 HOUR, ACOG glucose, 2 hour acog 186 mg/dL 70-154 high Not Available [facility] (Lab) [address] [place], [address], 03/09/2025 07:22:26 03/08/20 25 03/08/2025 GTT - GESTA MIGUEL ÁNGEL L, 3 HOUR, ACOG glucose, 3 hour acog 173 mg/dL 70-139 high Not Available [facility] (Lab) [address] [facility], [place], [address], 03/09/2025 07:22:26 03/30/20 25 03/30/2025 WOMEN 'S HEALT H SWAB PLUS, KEVON bacterial vaginosis (bv), tma Negati ve negati ve Not Available [facility] (Lab) [address] [facility], [place], [address], 04/01/2025 15:13:33 03/30/20 25 03/30/2025 [facility], KEVON bro species, tma Positi ve negati ve abnormal Not Available [facility] (Lab) [address] [place], [address], 04/01/2025 15:13:33 03/30/20 25 03/30/2025 [facility], KEVON bro glabrata, tma Negati ve negati ve Not Available [facility] (Lab) [address] [facility], [place], [address], 04/01/2025 15:13:33 03/30/20 25 03/30/2025 [facility], KEVON trichomonas vaginalis, tma Positi ve negati ve abnormal Not Available [facility] (Lab) [address] [facility], [place], [address], 04/01/2025 15:13:33 03/30/20 25 03/30/2025 [facility], KEVON chlamydia trachomatis, PCR Negati ve negati ve Not Available [facility] (Lab) [address] [place], [address], 04/01/2025 15:13:33 03/30/20 25 03/30/2025 [facility], KEVON neisseria gonorrhoeae, PCR Negati ve negati ve Colle cted by offic e staff . Bacte rial vagin osis detec ts the follo wing bacte adama assoc iated with bacte rial vagin osis (BV): Lacto bacil dianna (L. gasse ri, L. crisp atus and L. jense cal), Gardn erell a vagin scarlet, and Atopo bium vagin ae. A singl e quali tativ e resul t is repor sanjuana base on instr ument softw are to deter mine BV posit chris or negat chris statu s. The Meseret da speci es group tests for C. albic ans, C. tropi calis , C. parap sury is, C. dubli niens is. Testi ng is perfo rmed using the Trans cript ion Media sanjuana Ampli ficat ion metho d. Tests for Meseret da glabr marley, Trich omona s vagin scarlet, Chlam ydia trach omati s, and Neiss eria gonor rhoea e are also inclu ded in this panel . Not Available [facility] (Lab) [address], [place], [address], 04/01/2025 15:13:33 03/01/20 25 03/01/2025 US, obste tric, limit ed No observ ation record ed. [email or web address] Ruthie [address], [place], [address], 03/02/2025 09:56:04 03/01/20 25 03/01/2025 US, obste tric, limit ed No observ ation record ed. [email or web address] [address], [place], [address], 03/01/2025 16:15:36 03/21/20 25 03/21/2025 US, obste tric, follo w-up No observ ation record ed. [email or web address] Marty [address], [place], [address], 03/21/2025 15:50:40 03/21/20 25 03/21/2025 US, obste tric, follo w-up No observ ation record ed. [email or web address] Ruthie [address], [place], [address], 03/25/2025 16:14:26 04/04/20 25 04/04/2025 imagi ng/di agnos tic resul t No observ ation record ed. [facility] [address], [place], [address], 04/05/2025 10:52:00 04/12/20 25 04/12/2025 US, obste tric, follo w-up No observ ation record ed. [email or web address] [address], [place], [address], 04/12/2025 14:17:26 04/12/20 25 04/12/2025 US, obste tric, follo w-up No observ ation record ed. [email or web address] Ruthie [address], [place], [address], 04/15/2025 10:42:08 04/26/20 25 04/26/2025 US, obste tric, follo w-up No observ ation record ed. [address], [address], 04/26/2025 16:57:52 04/27/20 25 04/26/2025 US, obste tric, follo w-up No observ ation record ed. [address], [address], 04/28/2025 22:03:11 04/30/20 25 04/30/2025 imagi ng/di agnos tic resul t No observ ation record ed. [facility] [address], [place], [address], 05/02/2025 11:12:20 05/03/20 25 05/03/2025 imagi ng/di agnos tic resul t No observ ation record ed. [facility] [address], [address], 05/03/2025 13:20:09 05/03/20 25 05/03/2025 imagi ng/di agnos tic resul t No observ ation record ed. [facility] [address] [facility], [place], [address], 05/03/2025 13:24:51 Result Notes None recorded. Problems Name Problem SNOMED Code Status Onset Date Resolution Date Notes Provider Name and Address Organization Details Recorded Time 73760475 Active [facility]24 [facility] 15:10:19 Uncomplic ated asthma 215679042 Active 2024 albuterol inhlaer prn 2 rounds steroids in plan daily inhaler Vicky Burris, LASHONDA [address], [place], [address], [facility] 17:45:27 Platelet count above reference range 797913906 Active 2024 480 @ 28wks rpt labs [facility] 12:16:37 Gestation al diabetes mellitus 65908082 Active 2024 checking bs QID, serial growth us Faxed Referral [facility] for DT 03/09 [facility] 12:25:55 Infection by Trichomon as 97471498 Active 2024 Nithya fuentes [facility] 14:24:54 Infection by Trichomon as 49039293 Active 2024 Nithya fuentes [facility] 14:24:54 Notes:Some problems listed i n Document: #[id number] could not be added to this patient's chart. Please review this document and add these problems to the patient's chart manually as needed. Problem Notes None recorded. Medical Equipment None Reported. Allergies Allergen ID Allergen Name Allergen Category Reaction Reaction Severity Criticality Documentation Date Start Date Code Code System Note Provider Name and Address Organization Details Recorded Time 95525 banana extract food,medi cation anaphylax is Not available Not available 02/16/2025 93752 9 RxNorm [facility] 14:34:13 Medications Name Sig Start Date [...] Available Not Available No t Available Vitals Date Recorded Body height Body mass index (BMI) Body weight Systolic And Diastolic Provider Name and Address Organization Details Last Updated DateTime 03/30/2025 152.4 cm 39.5 kg/m2 20699.66 g 111/74 mm[Hg] SAQIB FISHMAN [facility] 03/30/2025 17:27:07 Date Recorded Body weight Systolic And Diastolic Provider Name and Address Organization Details Last Updated DateTime 04/12/2025 56214.32880 g 108/72 mm[Hg] Jen Kvng [facility] 04/12/2025 13:03:25 Date Recorded Body height Body mass index (BMI) Body weight Systolic And Diastolic Provider Name and Address Organization Details Last Updated DateTime 04/26/2025 152.4 cm 39.8 kg/m2 18510.84 g 116/78 mm[Hg] Delores Gaffneycoral [facility] 04/26/2025 09:57:00 Date Recorded Body height Body mass index (BMI) Body weight Systolic And Diastolic Provider Name and Address Organization Details Last Updated DateTime 05/03/2025 152.4 cm 40 kg/m2 08371.44 g 119/80 mm[Hg] SAQIB FISHMAN [facility] 05/03/2025 10:08:51 Social History Question Answer Notes LastModified by Organizat ion Details LastModified Time Tobacco Smoking Status Never Smoker Nikki miguel, [facility] 02/16/2025 14:36:54 Do You Have An Advance Directive? No [email or web address] Information n ot available 02/16/2025 How Many Years Have You Consumed Alcohol? 13 [email or web address] Information not available 02/16/2025 Are You Blind Or Do You Have Difficulty Seeing? No [email or web address] Information n ot available 02/16/2025 What Is Your Level Of Caffeine Consumption? Occasional [email or web address] Information not available 02/16/2025 In The 14 Days Before Symptom Onset, Have You Had Close Contact With A Laboratory-confirm ed COVID-19 While That Case Was Ill? No [email or web address] Information n ot available 02/16/2025 In The 14 Days Before Symptom Onset, Have You Had Close Contact With A Person Who Is Under Investigation For COVID-19 While That Person Was Ill? No [email or web address] Information not available 02/16/2025 Have You Been To An Area Known To Be High Risk For COVID-19? No [email or web address] Information not available 02/16/2025 Are You Deaf Or Do You Have Serious Difficulty Hearing? No [email or web address] Information not available 02/16/2025 What Type Of Diet Are You Following? REGULAR [email or web address] Information n ot available 02/16/2025 What Is The Highest Grade Or Level Of School You Have Completed Or The Highest Degree You Have Received? [id number] Information not available 02/16/2025 Are There Any Guns Present In Your Home? No [email or web address] Information not available 02/16/2025 Do You Use Protection During Sex? Always [email or web address] Information not available 02/16/2025 Do You Use Your Seat Belt Or Car Seat Routinely? Yes [email or web address] Information not available 02/16/2025 Are You Sexually Active? Yes [email or web address] Information not available 02/16/2025 Do You Have Smoke And Carbon Monoxide Detectors In Your Home? Yes Information not available 02/16/2025 How Much Tobacco Do You Smoke? No [email or web address] Information not available 02/16/2025 Do You Use Sunscreen Routinely? Yes [email or web address] Information not available 02/16/2025 Has Tobacco Cessation Counseling Been Provided? No [email or web address] Information not available 02/16/2025 Have You Used IV Drugs? No [email or web address] Information not available 02/16/2025 Do You Have Difficulty Walking Or Climbing Stairs? No [email or web address] Information not available 02/16/2025 Sex: Unknown Functional Status Question Answer Note LastModified by Organizat ion Details LastModified Time Do you use any illicit or recreational drugs? No [email or web address] Information not available 02/16/2025 Do you or have you ever used any other forms of tobacco or nicotine? No Information not available 02/16/2025 What is your level of alcohol consumption? None [email or web address] Information not available 02/16/2025 Are you currently employed? Yes [email or web address] Information not available 02/16/2025 Are you able to walk independently without assistance or assistive devices? 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 No [email or web address] Information not available 02/16/2025 What is your exercise level? Moderate [email or web address] Information not available 02/16/2025 Mental Status Question Answer Note LastModified by Organization D etails LastModified Time Do you feel stressed (tense, restless, nervous, or anxious, or unable to sleep at night)? [id number] [email or web address] Information not available 02/16/2025 Family History Relationship Description Onset Age of this Age Resolved Age Notes LastModified by Organization Details LastModified Time Mother Diabetes mellitus [email or web address] Not available 2024 14:34:18 Maternal Aunt Diabetes mellitus [email or web address] Not available 2024 14:34:18 Maternal Grandmother Diabetes mellitus [email or web address] Not available 2024 14:34:18 Medical History Condition [...] ICD10 Code Diagnosis IMO Codes Diagnosis Note [id number] Vicky Burris CNM Marty [address] [address] 02/16/2025 14:19:20 02/17/2025 09:09:19 Gestation period, 26 weeks 75611900 Z3A.26 5093075 Asthma 955747281 J45.90 9 [id number] Oracio Yoon MD [place] [address],[place] [address] 02/16/2025 15:03:38 02/16/2025 15:58:51 care status 799767588 O36.5920 Z3A.26 774941 [id number] Oracio Yoon MD Marty [address],[facility] [place] [address] 03/01/2025 14:44:23 03/01/2025 15:32:30 Obstetric procedure 334069974 Z03.71 Z3A.27 2579508 [id number] Vicky Burris [facility] [address],[place] [address] 03/02/2025 09:48:08 03/02/2025 10:27:40 Gestation period, 28 weeks 79379920 Z3A.28 5667830 [id number] Vicky Burris [facility] [address],[place] [address] 03/16/2025 09:31:29 03/16/2025 13:26:40 Gestational diabetes mellitus 47198411 O24.419 24200486 [id number] Oracio Yoon MD Marty [address],[place] [address] 03/21/2025 09:09:41 03/21/2025 09:51:13 Gestational diabetes mellitus 04131496 O24.410 Z3A.30 18596115 [id number] Vicky Burris [facility] [address],[place] [address] 03/30/2025 17:16:04 04/02/2025 18:15:20 Gestation period, 32 weeks 4516177 Z3A.32 5936532 Acute vaginitis 15287674 N76.0 09473 [id number] Oracio Yoon MD Marty [address],[place] [address] 04/12/2025 12:02:21 04/12/2025 12:52:43 Gestational diabetes mellitus 30745669 O24.410 Z3A.33 10884919 [id number] Vicky Burris [facility] [address] [place] [address] 04/12/2025 12:04:36 04/12/2025 13:58:27 Gestation period, 33 weeks 85577123 Z3A.33 6321037 Gestationa l diabetes mellitus 43447494 O24.415 25387824 [id number] [facility] [address],[place] [address] 04/26/2025 09:48:17 04/26/2025 10:20:04 Gestation period, 35 weeks 44936814 Z3A.35 9207366 [id number] QASIM LU MD Marty [address] [address] 05/03/2025 10:00:16 05/03/2025 10:31:48 Gestational diabetes mellitus 23355719 O24.410 [id number] Gestation period, 36 weeks 31045597 Z3A.36 [id number] Health Concerns Section Related Observation LastModified by Organization Detai ls LastModified Time None Recorded Concern Status LastModified by Organization Details LastModified Time None Recorded Advance Directives Directive N: Payers Insurance Date Sequence Insurance Name Policy Number Policy Herrera Covered Member ID Herrera Member ID Guarantor Name 04/11/2025 1 *SELF PAY* Re andreina Sanchez 05/02/2025 1 [facility] ([facility] Carolyne Daniel [id number] Carolyne Daniel 05/02/2025 1 [facility] Carolynearia Sanchez [id number] Carolynearia Sanchez 04/12/2025 PAYMENT PLAN Carolyne Sanchez Notes Date Note Type Note Provider Name and Address Organization Details Recorded Time 03/30/2025 text/html Generic HPI TemplateReported by Patient SAQIB miguel, [facility] 04/04/2025 09:08:22 04/12/2025 text/html Generic HPI TemplateReported by Patient Vicky Burris CNM [address], [place], [address], [facility] 04/12/2025 13:58:06 04/26/2025 text/html Generic HPI TemplateReported by Patient Vicky Burris CNM [address], [place], [address], [facility] 04/26/2025 10:09:29 05/03/2025 text/html Generic HPI TemplateReported by Patient QASIM LU MD [address], [place], [address], [facility] 05/03/2025 10:30:35 OBGyn Episode Ob Episode Information Episode Created Date Number of Fetuses Patient Bloodtype Patient rh Status Prepregnancy Weight lbs Domestic Partner Domestic Partner Phone Father Name Historic Interpreter Status 02/15/20 25 1 OPEN Fetus Data First Name Last Name Admitted to NICU Weight (g) Sex Living Outcome Pediatric Complications Fetus ID Race Codes Race Delivery Type [id number] Problems Problem Notes transfer of care- records re questedfluid high normal will rpt at next visit Problem Name Start Date End Date Resolution Snomed Code Not e Infection by Trichomonas 04/06/2025 81172608 Uncomplicated asthma 02/16/2025 49368443 1 albuterol inhlaer prn2 rounds steroids in pregnancyplan daily inhaler Gestational diabetes mellitus 03/09/2025 96516020 checking bs QID , serial growth usFaxed Referral [facility] for DT 03/09 Platelet count above reference range 03/04/2025 444835173 480 @ 28wks rpt labs Vaibhav Calculation [...] Gestation 02/17/20 25 25 05/25/19 26 3 Pre-michael Flowsheet Flowsheet Date 02/16/2025 Vega Score Blood Edema Fundus Height Fundus Units Glucose Ketones Leukocytes Nitrite Labor Signs Protein Cervic Dilation Cervic Effacement Cervic Station Type Weight in lbs Pre/Post Dialysis Refused Weight 195.272041499448 BP Diastolic BP Location Tested BP Systolic [...] Type Weight in lbs Pre/Post Dialysis Refused 201.950489993593 BP Diastolic BP Location Tested BP Systolic [...] Weight in lbs Pre/Post Dialysis Refused Weight 200.196854112898 BP Diastolic BP Location Tested BP Systolic BP Type 74 L arm 121 sitting Fetus Heart Rate Present Fetus Movement Comments reviewed blood sugars fastin g ok, meals some elevated, 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 lu, start metformin 500mg BID, ssm consult, not following diet discussed risks including LGA, lung immaturity and demise, pt needs NSTS and BPP will try and schedule at [facility] due to insurance conflict. precautions and education f/u 2 weeks here , or earlier if needs to do her testing here Flowsheet Date 04/26/2025 Vega Score Blood Edema Fundus Height Fundus Units Glucose Ketones Leukocytes Nitrite Labor Signs Protein Cervic Dilation Cervic Effacement Cervic Station Type Weight in lbs Pre/Post Dialysis Refused Weight 204.972510635378 BP Diastolic BP Location Tested BP Systolic [...] Weight in lbs Pre/Post Dialysis Refused Weight 205.664216110437 BP Diastolic BP Location Tested BP Systolic [...] Method Maternal HG B and HCT Levels Ob Episode Information Episode Created Date Number of Fetuses Patient Bloodtype Patient rh Status Prepregnancy Weight lbs Domestic Partner Domestic Partner Phone Father Name Historic Interpreter Status 02/17/20 25 1 DELETED Vaibhav Calculation Initial Vaibhav Date Initial Exam Date Initial Exam Provider Initial Ultrasound Date Last Menstrual Period Date Ultra Sound Weeks Gestation 0 Eighteen To Twenty Week Vaibhav Update Ultra Sound Date Fundal Height At Umbil Quickening Date Ultra Sound Latest Weeks Gestation Final Vaibhav Confirmed By Final Vaibhav Confirmed Date Final Vaibhav Date Ultra Sound Latest Days Gestation 0 0 Menstrual History Last Menstrual Date Menses Monthly On Bcp Conception Prior Menses Frequency Hcg Plus Date Menarche Onset Age Delivery Information Delivery Date Delivery Type Labor Anesthesia Weeks Gestation Incision Type Labor Labor Length Hrs Delivered By Post Complications Tubal Sterilization Discharge Date Comments 0 ectopic Discharge Information Feeding Method Contraceptive Method Maternal HG B and HCT Levels Ob Episode Information Episode Created Date Number of Fetuses Patient Bloodtype Patient rh Status Prepregnancy Weight lbs Domestic Partner Domestic Partner Phone Father Name Historic Interpreter Status 02/18/20 1 CLOSED Fetus Data First Name Last Name Admitted to NICU Weight (g) Sex Living Outcome Pediatric Complications Fetus ID Race Codes Race Delivery Type Ectopic [id number] Vaibhav Calculation Initial Vaibhav Date Initial Exam Date Initial Exam Provider Initial Ultrasound Date Last Menstrual Period Date Ultra Sound Weeks Gestation 0 Eighteen To Twenty Week Vaibhav Update Ultra Sound Date Fundal Height At Umbil Quickening Date Ultra Sound Latest Weeks Gestation Final Vaibhav Confirmed By Final Vaibhav Confirmed Date Final Vaibhav Date Ultra Sound Latest Days Gestation 0 0 Menstrual History Last Menstrual Date Menses Monthly On Bcp Conception Prior Menses Frequency Hcg Plus Date Menarche Onset Age Delivery Information Delivery Date Delivery Type Labor Anesthesia Weeks Gestation Incision Type Labor Labor Length Hrs Delivered By Post Complications Tubal Sterilization Discharge Date Comments 0 false Discharge Information Feeding Method Contraceptive Method Maternal HG B and HCT Levels
--- OUTSIDE RECORDS SUMMARY | 2025-05-03 14:18 | XMS_ITS | Continuity of Care Document ---
Author Organization [facility] Address [address] [place] [address] Assessment No assessment recorded. Plan of Treatment [...] obstetr ic, follow- up 2024 025 [email or web address] [place], [address], [address], [place], [address], 02/16/2025 22:03:32 Medication Orders None recorde d. Patient TargetsNo targets recorded. Patient InstructionsNo instructions recorded. Reason for Referral None Reported. Results Created Date Observation Date Name Description Value Unit Range Abnormal Flag Note LastModifiedBy Organization Detail LastModifiedTime 02/17/2002/16/2025 US, obste tric, follo w-up No observ ation record ed. [email or web address] [place] [address], [place], [address], 02/16/2025 17:56:15 02/17/20 25 02/16/2025 US, obste tric, follo w-up No observ ation record ed. [email or web address] Ruthie [address], [place], [address], 03/01/2025 12:13:11 03/01/2003/01/2025 US, obste tric, limit ed No observ ation record ed. [email or web address] Ruthie [address], [place], [address], 03/02/2025 09:56:04 03/01/20 25 03/01/2025 US, obste tric, limit ed No observ ation record ed. [email or web address] [place] [address], [place], [address], 03/01/2025 16:15:36 03/21/20 25 03/21/2025 US, obste tric, follo w-up No observ ation record ed. [email or web address] [place] [address], [place], [address], 03/21/2025 15:50:40 03/21/20 25 03/21/2025 US, obste tric, follo w-up No observ ation record ed. Ruthie [address], [place], [address], 03/25/2025 16:14:26 04/04/20 25 04/04/2025 imagi ng/di agnos tic resul t No observ ation record ed. [facility] [address], [place], [address], 04/05/2025 10:52:00 04/12/20 25 04/12/2025 US, obste tric, follo w-up No observ ation record ed. [facility] [address], [place], [address], 04/12/2025 14:17:26 04/12/20 25 04/12/2025 US, obste tric, follo w-up No observ ation record ed. [email or web address] [place], [place] [address]e [address], [place], [address], 04/15/2025 10:42:08 04/26/20 25 04/26/2025 US, obste tric, follo w-up No observ ation record ed. [address] [facility] [address], [address], 04/26/2025 16:57:52 04/27/20 25 04/26/2025 US, obste tric, follo w-up No observ ation record ed. [address] [facility] [address], [address], 04/28/2025 22:03:11 04/30/20 25 04/30/2025 imagi ng/di agnos tic resul t No observ ation record ed. [place] [id number] [facility] [address], [place], [address], 05/02/2025 11:12:20 05/03/20 25 05/03/2025 imagi ng/di agnos tic resul t No observ ation record ed. [facility] [address], [address], 05/03/2025 13:20:09 05/03/20 25 05/03/2025 imagi ng/di agnos tic resul t No observ ation record ed. LSELY [facility] [address], [place], [address], 05/03/2025 13:24:51 Result Notes None recorded. Problems Name Problem SNOMED Code Status Onset Date Resolution Date Notes Provider Name and Address Organization Details Recorded Time 61034564 Active 2024 Nikki Wiggins [place], [facility] 15:10:19 Uncomplic ated asthma 605939408 Active 2024 albuterol inhlaer prn 2 rounds steroids in plan daily inhaler Vicky Burris, LASHONDA [address], [place], [address], [place] [facility] 17:45:27 Platelet count above reference range 808337126 Active 2024 480 @ 28wks rpt labs Olesya miguel, [facility] 12:16:37 Gestation al diabetes mellitus 39898296 Active 2024 checking bs QID, serial growth us Faxed Referral [facility] for DT [facility] 12:25:55 Infection by Trichomon as 75990796 Active 2024 Nithya Piña gina [facility] 14:24:54 Infection by Trichomon as 84158251 Active 2024 Nithya fuentes [facility], [facility] 14:24:54 Notes:Some problems listed i n Document: #[id number] could not be added to this patient's chart. Please review this document and add these problems to the patient's chart manually as needed. Problem Notes None recorded. Medical Equipment None Reported. Allergies Allergen ID Allergen Name Allergen Category Reaction Reaction Severity Criticality Documentation Date Start Date Code Code System Note Provider Name and Address Organization Details Recorded Time 16990 banana extract food,medi cation anaphylax is Not available Not available 02/16/2025 39575 9 RxNorm Nikki W[address] [facility] 5 14:34:13 Medications Name Sig Start Date Stop [...] active Not Available Not Available Not Available Lanbrando Solostar U-100 Insulin 100 unit/mL (3 mL) [...] and Address Organization Details Last Updated DateTime 02/16/2025 152.4 cm 38.1 kg/m2 89394.51 g 124/82 mm[Hg] Nikki Wiggins [facility] 02/16/2025 14:34:07 Social History Question Answer Notes LastModified by Organizat ion Details LastModified Time Tobacco Smoking Status Never Smoker Nikki miguel, [facility] 02/16/2025 14:36:54 Do You Have An Advance Directive? No Information n ot available 02/16/2025 How Many Years Have You Consumed Alcohol? 13 [email or web address] Information not available 02/16/2025 Are You Blind Or Do You Have Difficulty Seeing? No Information n ot available 02/16/2025 What Is Your Level Of Caffeine Consumption? Occasional [email or web address] Information not available 02/16/2025 In The 14 Days Before Symptom Onset, Have You Had Close Contact With A Laboratory-confirm ed COVID-19 While That Case Was Ill? No Information n ot available 02/16/2025 In The 14 Days Before Symptom Onset, Have You Had Close Contact With A Person Who Is Under Investigation For COVID-19 While That Person Was Ill? No [email or web address] Information not available 02/16/2025 Have You Been To An Area Known To Be High Risk For COVID-19? No [email or web address] Information not available 02/16/2025 Are You Deaf Or Do You Have Serious Difficulty Hearing? No [email or web address] Information not available 02/16/2025 What Type Of Diet Are You Following? REGULAR Information n ot available 02/16/2025 What Is The Highest Grade Or Level Of School You Have Completed Or The Highest Degree You Have Received? OR21661-1 Information not available 02/16/2025 Are There Any Guns Present In Your Home? No Information not available 02/16/2025 Do You Use Protection During Sex? Always [email or web address] Information not available 02/16/2025 Do You Use Your Seat Belt Or Car Seat Routinely? Yes [email or web address] Information not available 02/16/2025 Are You Sexually Active? Yes [email or web address] Information not available 02/16/2025 Do You Have Smoke And Carbon Monoxide Detectors In Your Home? Yes [email or web address] Information not available 02/16/2025 How Much Tobacco Do You Smoke? No [email or web address] Information not available 02/16/2025 Do You Use Sunscreen Routinely? Yes [email or web address] Information not available 02/16/2025 Has Tobacco Cessation Counseling Been Provided? No [email or web address] Information not available 02/16/2025 Have You Used IV Drugs? No [email or web address] Information not available 02/16/2025 Do You Have Difficulty Walking Or Climbing Stairs? No Information not available 02/16/2025 Sex: Unknown Functional Status Question Answer Note LastModified by Organizat ion Details LastModified Time Do you use any illicit or recreational drugs? No [email or web address] Information not available 02/16/2025 Do you or have you ever used any other forms of tobacco or nicotine? No [email or web address] Information not available 02/16/2025 What is your level of alcohol consumption? None [email or web address] Information not available 02/16/2025 Are you currently employed? Yes Information not available 02/16/2025 Are you able to walk independently without assistance or assistive devices? 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 No Information not available 02/16/2025 What is your exercise level? Moderate [email or web address] Information not available 02/16/2025 Mental Status Question Answer Note LastModified by Organization D etails LastModified Time Do you feel stressed (tense, restless, nervous, or anxious, or unable to sleep at night)? DX4380-2 [email or web address] Information not available 02/16/2025 Family History Relationship Description Onset Age of this Age Resolved Age Notes LastModified by Organization Details LastModified Time Mother Diabetes mellitus Not available 2024 14:34:18 Maternal Aunt Diabetes mellitus Not available 2024 14:34:18 Maternal Grandmother Diabetes mellitus Not available 2024 14:34:18 Medical History Condition Response Anxiety Disorder Y Allergies (Food, seasonal, environmental ) Y Asthma Y Depression/ depression Y Gynecological [...] ICD10 Code Diagnosis IMO Codes Diagnosis Note [id number] Vciky Burris CNM [place] [address] [address] 02/16/2025 14:19:20 02/17/2025 09:09:19 Gestation period, 26 weeks 06860057 Z3A.26 1176623 Asthma 290421909 J45.90 9 [id number] Oracio Yoon MD [place] [address] [address] 02/16/2025 15:03:38 02/16/2025 15:58:51 care status 420980114 O36.5920 Z3A.26 [id number] Health Concerns Section Related Observation LastModified by Organization Detai ls LastModified Time None Recorded Concern Status LastModified by Organization Details LastModified Time None Recorded Payers Encounter Date Sequence Insurance Name Policy Number Policy Herrera Covered Member ID Herrera Member ID Guarantor Name 02/16/2025 1 [facility] Carolyne Sanchez [id number] Carolyne Sanchez OBGyn Episode Ob Episode Information Episode Created Date Number of Fetuses Patient Bloodtype Patient rh Status Prepregnancy Weight lbs Domestic Partner Domestic Partner Phone Father Name Kiln Hand Status 02/15/20 25 1 OPEN Fetus Data First Name Last Name Admitted to NICU Weight (g) Sex Living Outcome Pediatric Complications Fetus ID Race Codes Race Delivery Type 12611 Problems Problem Notes transfer of care- records re questedfluid high normal will rpt at next visit Problem Name Start Date End Date Resolution Snomed Code Not e Infection by Trichomonas 04/06/2025 68937185 Uncomplicated asthma 02/16/2025 65922210 1 albuterol inhlaer prn2 rounds steroids in pregnancyplan daily inhaler Gestational diabetes mellitus 03/09/2025 38372265 checking bs QID , serial growth usFaxed Referral [facility] for DT 03/09 Platelet count above reference range 03/04/2025 696860461 480 @ 28wks rpt labs Vaibhav Calculation [...] Weight in lbs Pre/Post Dialysis Refused Weight 195.943161019679 BP Diastolic BP Location Tested BP Systolic [...] Type Weight in lbs Pre/Post Dialysis Refused 201.654045252540 BP Diastolic BP Location Tested BP Systolic [...] Weight in lbs Pre/Post Dialysis Refused Weight 200.905296265040 BP Diastolic BP Location Tested BP Systolic BP Type 74 L arm 121 sitting Fetus Heart Rate Present Fetus Movement Comments reviewed blood sugars fastin g ok, meals some elevated, 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 lu, start metformin 500mg BID, ssm consult, not following diet discussed risks including LGA, lung immaturity and demise, pt needs NSTS and BPP will try and schedule at [facility] due to insurance conflict. precautions and education f/u 2 weeks here , or earlier if needs to do her testing here Flowsheet Date 04/26/2025 Vega Score Blood Edema Fundus Height Fundus Units Glucose Ketones Leukocytes Nitrite Labor Signs Protein Cervic Dilation Cervic Effacement Cervic Station Type Weight in lbs Pre/Post Dialysis Refused Weight 204.735958863090 BP Diastolic BP Location Tested BP Systolic BP Type 78 L arm 116 sitting Fetus Heart Rate Present A 138 Present Fetus Movement A Yes Comments +FM metformin 500mg bid has [facility] appt today with nst bpp will also do that next week plan iol 05/17 at 1200, gbs after may 05, education and precautions f/u as scheduled Flowsheet Date 05/03/2025 Vega Score Blood Edema Fundus Height Fundus Units Glucose Ketones Leukocytes Nitrite Labor Signs Protein Cervic Dilation Cervic Effacement Cervic Station 0cm 50% -2 Type Weight in lbs Pre/Post Dialysis Refused Weight 205.428942777869 BP Diastolic BP Location Tested BP Systolic [...]
--- OUTSIDE RECORDS SUMMARY | 2025-05-03 14:18 | XMS_ITS | Continuity of Care Document ---
Author Organization [facility] Address [address] [place] [address] Assessment No assessment recorded. Plan of Treatment [...] recorde d. Surgeries None recorde d. Imaging None recorde d. Medication Orders Symbico rt 80 mcg-4.5 mcg/act uation HFA aerosol inhaler 2024 025 [id number], [address], [place], [id number], 02/16/2025 17:44:55 Patient TargetsNo targets recorded. Patient InstructionsNo instructions recorded. Reason for Referral None Reported. Results Created Date Observation Date Name Description Value Unit Range Abnormal Flag Note LastModifiedBy Organization Detail LastModifiedTime 02/17/2002/16/2025 US, obste tric, follo w-up No observ ation record ed. [email or web address] [place] [address], [place], [address], 02/16/2025 17:56:15 02/17/20 25 02/16/2025 US, obste tric, follo w-up No observ ation record ed. [email or web address] [address]ie [address], [place], [address], 03/01/2025 12:13:11 03/01/2003/01/2025 US, obste tric, limit ed No observ ation record ed. [email or web address] Ruthie [address], [place], [address], 03/02/2025 09:56:04 03/01/20 25 03/01/2025 US, obste tric, limit ed No observ ation record ed. [email or web address] [place] [address], [place], [address], 03/01/2025 16:15:36 03/21/20 25 03/21/2025 US, obste tric, follo w-up No observ ation record ed. [email or web address] [place] [address], [place], [address], 03/21/2025 15:50:40 03/21/20 25 03/21/2025 US, obste tric, follo w-up No observ ation record ed. [email or web address] Ruthie [address], [place], [address], 03/25/2025 16:14:26 04/04/20 25 04/04/2025 imagi ng/di agnos tic resul t No observ ation record ed. [facility] [address], [place], [address], 04/05/2025 10:52:00 04/12/20 25 04/12/2025 US, obste tric, follo w-up No observ ation record ed. [facility] [address], [place], [address], 04/12/2025 14:17:26 04/12/20 25 04/12/2025 US, obste tric, follo w-up No observ ation record ed. [address], [place], [address], 04/15/2025 10:42:08 04/26/20 25 04/26/2025 US, obste tric, follo w-up No observ ation record ed. [address] [facility] [address], [address], 04/26/2025 16:57:52 04/27/20 25 04/26/2025 US, obste tric, follo w-up No observ ation record ed. [address] [facility] [address], [address], 04/28/2025 22:03:11 04/30/20 25 04/30/2025 imagi ng/di agnos tic resul t No observ ation record ed. [facility] [address] [facility] [address], [place], [address], 05/02/2025 11:12:20 05/03/20 25 05/03/2025 imagi ng/di agnos tic resul t No observ ation record ed. [facility] [address], [address], 05/03/2025 13:20:09 05/03/20 25 05/03/2025 imagi ng/di basil tic resul t No observ ation record ed. [facility] [address], [place], [address], 05/03/2025 13:24:51 Result Notes None recorded. Problems Name Problem SNOMED Code Status Onset Date Resolution Date Notes Provider Name and Address Organization Details Recorded Time 88048712 Active 2024 Nikki Wiggins [facility], [facility] 15:10:19 Uncomplic ated asthma 515932299 Active 2024 albuterol inhlaer prn 2 rounds steroids in plan daily inhaler Vicky Burris, JOSE MANUEL [address], [place], [address], [place] [facility] 17:45:27 Platelet count above reference range 294825131 Active 2024 480 @ 28wks rpt labs Olesya miguel, [facility] 12:16:37 Gestation al diabetes mellitus 32985013 Active 2024 checking bs QID, serial growth us Faxed Referral [facility] for DT 03[facility]09 [facility] 12:25:55 Infection by Trichomon as 91072426 Active 2024 Nithya Wang fuentes [facility], [facility] 14:24:54 Infection by Trichomon as 80506252 Active 2024 Nithya Kernbenny fuentes [facility], [facility] 14:24:54 Notes:Some problems listed i n Document: #[id number] could not be added to this patient's chart. Please review this document and add these problems to the patient's chart manually as needed. Problem Notes None recorded. Medical Equipment None Reported. Allergies Allergen ID Allergen Name Allergen Category Reaction Reaction Severity Criticality Documentation Date Start Date Code Code System Note Provider Name and Address Organization Details Recorded Time 35800 banana extract food,medi cation anaphylax is Not available Not available 02/16/2025 45591 9 RxNorm Nikki Wiggins [facility] 5 14:34:13 Medications Name Sig [...] Updated DateTime 02/16/2025 152.4 cm 38.1 kg/m2 47210.51 g 124/82 mm[Hg] Nikki Wiggins [facility] 02/16/2025 14:34:07 Social History Question Answer Notes LastModified by Organizat ion Details LastModified Time Tobacco Smoking Status Never Smoker Nikki Wiggins [place], [facility] 02/16/2025 14:36:54 Do You Have An Advance Directive? No [email or web address] Information n ot available 02/16/2025 How Many Years Have You Consumed Alcohol? 13 Information not available 02/16/2025 Are You Blind Or Do You Have Difficulty Seeing? No [email or web address] Information n ot available 02/16/2025 What Is Your Level Of Caffeine Consumption? Occasional [email or web address] Information not available 02/16/2025 In The 14 Days Before Symptom Onset, Have You Had Close Contact With A Laboratory-confirm ed COVID-19 While That Case Was Ill? No Information n ot available 02/16/2025 In The 14 Days Before Symptom Onset, Have You Had Close Contact With A Person Who Is Under Investigation For COVID-19 While That Person Was Ill? No Information not available 02/16/2025 Have You Been To An Area Known To Be High Risk For COVID-19? No [email or web address] Information not available 02/16/2025 Are You Deaf Or Do You Have Serious Difficulty Hearing? No [email or web address] Information not available 02/16/2025 What Type Of Diet Are You Following? REGULAR [email or web address] Information n ot available 02/16/2025 What Is The Highest Grade Or Level Of School You Have Completed Or The Highest Degree You Have Received? [id number] [email or web address] Information not available 02/16/2025 Are There Any Guns Present In Your Home? No [email or web address] Information not available 02/16/2025 Do You Use Protection During Sex? Always [email or web address] Information not available 02/16/2025 Do You Use Your Seat Belt Or Car Seat Routinely? Yes [email or web address] Information not available 02/16/2025 Are You Sexually Active? Yes Information not available 02/16/2025 Do You Have Smoke And Carbon Monoxide Detectors In Your Home? Yes [email or web address] Information not available 02/16/2025 How Much Tobacco Do You Smoke? No [email or web address] Information not available 02/16/2025 Do You Use Sunscreen Routinely? Yes [email or web address] Information not available 02/16/2025 Has Tobacco Cessation Counseling Been Provided? No [email or web address] Information not available 02/16/2025 Have You Used IV Drugs? No [email or web address] Information not available 02/16/2025 Do You Have Difficulty Walking Or Climbing Stairs? No Information not available 02/16/2025 Sex: Unknown Functional Status Question Answer Note LastModified by Organizat ion Details LastModified Time Do you use any illicit or recreational drugs? No Information not available 02/16/2025 Do you or have you ever used any other forms of tobacco or nicotine? No [email or web address] Information not available 02/16/2025 What is your level of alcohol consumption? None [email or web address] Information not available 02/16/2025 Are you currently employed? Yes [email or web address] Information not available 02/16/2025 Are you able to walk independently without assistance or assistive devices? 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 No [email or web address] Information not available 02/16/2025 What is your exercise level? Moderate [email or web address] Information not available 02/16/2025 Mental Status Question Answer Note LastModified by Organization D etails LastModified Time Do you feel stressed (tense, restless, nervous, or anxious, or unable to sleep at night)? [id number] [email or web address] Information not available 02/16/2025 Family History Relationship Description Onset Age of this Age Resolved Age Notes LastModified by Organization Details LastModified Time Mother Diabetes mellitus [email or web address] Not available 2024 14:34:18 Maternal Aunt Diabetes mellitus [email or web address] Not available 2024 14:34:18 Maternal Grandmother Diabetes mellitus [email or web address] Not available 2024 14:34:18 Medical History Condition [...] ICD10 Code Diagnosis IMO Codes Diagnosis Note [id number] Vicky Burris CNM [place] [address] [address] 02/16/2025 14:19:20 02/17/2025 09:09:19 Gestation period, 26 weeks 99878201 Z3A.26 [id number] Asthma 874290834 J45.90 9 [id number] Oracio Yoon MD [place] [address] [address] 02/16/2025 15:03:38 02/16/2025 15:58:51 care status [id number] O36.5920 Z3A.26 [id number] Health Concerns Section Related Observation LastModified by Organization Detai ls LastModified Time None Recorded Concern Status LastModified by Organization Details LastModified Time None Recorded Payers Encounter Date Sequence Insurance Name Policy Number Policy Herrera Covered Member ID Herrera Member ID Guarantor Name 02/16/2025 1 [facility] Carolyne Sanchez [id number] Carolyne Sanchez OBGyn Episode Ob Episode Information Episode Created Date Number of Fetuses Patient Bloodtype Patient rh Status Prepregnancy Weight lbs Domestic Partner Domestic Partner Phone Father Name Professional Services Manager Status 02/15/20 25 1 OPEN Fetus Data First Name Last Name Admitted to NICU Weight (g) Sex Living Outcome Pediatric Complications Fetus ID Race Codes Race Delivery Type [id number] Problems Problem Notes transfer of care- records re questedfluid high normal will rpt at next visit Problem Name Start Date End Date Resolution Snomed Code Not e Infection by Trichomonas 04/06/2025 68979982 Uncomplicated asthma 02/16/2025 97852509 1 albuterol inhlaer prn2 rounds steroids in pregnancyplan daily inhaler Gestational diabetes mellitus 03/09/2025 48777148 checking bs QID , serial growth usFaxed Referral [facility] for DT 03/09 Platelet count above reference range 03/04/2025 636627714 480 @ 28wks rpt labs Vaibhav Calculation [...] Weight in lbs Pre/Post Dialysis Refused Weight 195.135280515026 BP Diastolic BP Location Tested BP Systolic [...] Type Weight in lbs Pre/Post Dialysis Refused 201.571551772350 BP Diastolic BP Location Tested BP Systolic [...] Weight in lbs Pre/Post Dialysis Refused Weight 200.164814488856 BP Diastolic BP Location Tested BP Systolic BP Type 74 L arm 121 sitting Fetus Heart Rate Present Fetus Movement Comments reviewed blood sugars fastin g ok, meals some elevated, 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 lu, start metformin 500mg BID, ssm consult, not following diet discussed risks including LGA, lung immaturity and demise, pt needs NSTS and BPP will try and schedule at [facility] due to insurance conflict. precautions and education f/u 2 weeks here , or earlier if needs to do her testing here Flowsheet Date 04/26/2025 Vega Score Blood Edema Fundus Height Fundus Units Glucose Ketones Leukocytes Nitrite Labor Signs Protein Cervic Dilation Cervic Effacement Cervic Station Type Weight in lbs Pre/Post Dialysis Refused Weight 204.376071183352 BP Diastolic BP Location Tested BP Systolic [...] Weight in lbs Pre/Post Dialysis Refused Weight 205.767257675218 BP Diastolic BP Location Tested BP Systolic [...]
--- OUTSIDE RECORDS SUMMARY | 2025-05-03 14:18 | XMS_ITS | Continuity of Care Document ---
Author Organization [facility] Address [address] [place] [address] Assessment No assessment recorded. Plan of Treatment [...] US, obstetr ic, follow- up 2024 025 LESLY Lisman, [address], [address], [place], [address], 04/12/2025 19:52:39 Medication Orders None recorde d. Patient TargetsNo targets recorded. Patient InstructionsNo instructions recorded. Reason for Referral None Reported. Results Created Date Observation Date Name Description Value Unit Range Abnormal Flag Note LastModifiedBy Organization Detail LastModifiedTime 03/02/2003/02/2025 HEMAT OCRIT (HCT) HCT 36.2 % (based on docume nted legal sex) 34.0-[address] [facility] (Lab) [address], [place], [address], 03/03/2025 12:36:52 03/02/2003/02/2025 CBC W/DIF F WBC 14.2 10'3/ uL 3.5-10 [address] [facility] (Lab) [address], [place], [address], 03/03/2025 12:36:52 03/02/20 25 03/02/2025 CBC W/DIF F RBC 4.65 10'6/ uL (based on docume nted legal sex) 3.80-[address] [facility] (Lab) [address], [place], [address], 03/03/2025 12:36:52 03/02/20 25 03/02/2025 CBC W/DIF F HGB 12.7 g/dL (based on docume nted legal sex) 11.6-[address] [facility] (Lab) [address], [place], [address], 03/03/2025 12:36:52 03/02/20 25 03/02/2025 CBC W/DIF F HCT 36.2 % (based on docume nted legal sex) 34.0-[address] [facility] (Lab) [address], [place], [address], 03/03/2025 12:36:52 03/02/20 25 03/02/2025 CBC W/DIF F MCV 77.8 fL 80.0-9 [address] [facility] (Lab) [address] [place], [address], 03/03/2025 12:36:52 03/02/20 25 03/02/2025 CBC W/DIF F MCH 27.3 pg 27.0-[address] [facility] (Lab) [address], [place], [address], 03/03/2025 12:36:52 03/02/20 25 03/02/2025 CBC W/DIF F MCHC 35.1 g/dL 32.0-[address] [facility] (Lab) [address], [place], [address], 03/03/2025 12:36:52 03/02/2003/02/2025 CBC W/DIF F RDW 15.1 % 11.0-1 [address] [facility] (Lab) [address], [place], [address], 03/03/2025 12:36:52 03/02/20 25 03/02/2025 CBC W/DIF F plt 480 10'3/ uL 150-[address] [facility] (Lab) [address], [place], [address], 03/03/2025 12:36:52 03/02/20 25 03/02/2025 CBC W/DIF F MPV 9.4 fL 8.8-[address] [facility] (Lab) [address], [place], [address], 03/03/2025 12:36:52 03/02/20 25 03/02/2025 CBC W/DIF F NRBC's 0.0 % 0.[address] [facility] (Lab) [address], [place], [address], 03/03/2025 12:36:52 03/02/20 25 03/02/2025 CBC W/DIF F absolute NRBCs 0.0 10'3/ uL no refere nce range establ ished Not Available [facility] (Lab) [address], [place], [address], 03/03/2025 12:36:52 03/02/20 25 03/02/2025 CBC W/DIF F neutrophils 75.4 % 34.0-7 3[address] [facility] (Lab) [address], [place], [address], 03/03/2025 12:36:52 03/02/20 25 03/02/2025 CBC W/DIF F lymphocytes 17.1 % 15.0-[address] [facility] (Lab) [address], [place], [address], 03/03/2025 12:36:52 03/02/20 25 03/02/2025 CBC W/DIF F monocytes 4.7 % 1.0-[address] [facility] (Lab) [address], [place], [address], 03/03/2025 12:36:52 03/02/20 25 03/02/2025 CBC W/DIF F eosinophils 1.4 % 0.0-8. [address] [facility] (Lab) [address], [place], [address], 03/03/2025 12:36:52 03/02/20 25 03/02/2025 CBC W/DIF F basophils 0.4 % 0.0-2. [address] [facility] (Lab) [address], [place], [address], 03/03/2025 12:36:52 03/02/20 25 03/02/2025 CBC W/DIF [...] separ ately if prese nt. Not Available [facility] (Lab) [address], [place], [address], 03/03/2025 12:36:52 03/02/2003/02/2025 CBC W/DIF F absolute neutrophils 10.7 10'3/ uL 1.5-8. [address] [facility] (Lab) [address], [place], [address], 03/03/2025 12:36:52 03/02/20 25 03/02/2025 CBC W/DIF F absolute lymphocytes 2.4 10'3/ uL 1.0-4. [address] [facility] (Lab) [address], [place], [address], 03/03/2025 12:36:52 03/02/20 25 03/02/2025 CBC W/DIF F absolute monocytes 0.7 10'3/ uL 0.2-1. [address] [facility] (Lab) [address], [place], [address], 03/03/2025 12:36:52 03/02/20 25 03/02/2025 CBC W/DIF F absolute eosinophils 0.2 10'3/ uL 0.0-0. [address] [facility] (Lab) [address], [place], [address], 03/03/2025 12:36:52 03/02/20 25 03/02/2025 CBC W/DIF F absolute basophils 0.1 10'3/ uL 0.0-0. [address] [facility] (Lab) [address], [place], [address], 03/03/2025 12:36:52 03/02/20 25 03/02/2025 CBC W/DIF [...] almonte book. nm.or g/gen derx Not Available [facility] (Lab) [address], [place], [address], 03/03/2025 12:36:52 03/02/2003/02/2025 HEMOG LOBIN (HGB) HGB 12.7 g/dL (based on docume nted legal sex) 11.6-[address] [facility] (Lab) [address], [place], [address], 03/03/2025 12:36:52 03/02/2003/02/2025 GTT - GESTA MIGUEL ÁNGEL L SCREE N, ACOG OB glucose, 1 hour screen 179 mg/dL 70-135 high Not Available [facility] (Lab) [address], [place], [address], 03/03/2025 12:36:53 03/02/2003/02/2025 HEPAT ITIS B SURFA CE ANTIG EN hepatitis B surface antigen Non-re active non-re active The test metho d is elect [facility]re [facility] inesc ence immun oassa y perfo rmed on the Deandre Stan e801. Value s obtai pauline with diffe rent assay metho ds by other labor atori es canno t be used inter fonseca eably . Not Available [facility] (Lab) [address], [place], [address], 03/03/2025 12:36:53 03/02/2003/02/2025 HIV 1/2 ANTIG EN/AN TIBOD Y, REFLE X CONFI RMATI ON HIV antigen/anti body Nonrea ctive nonrea ctive HIV-1 antig en and HIV-1 /HIV- 2 antib odies were not detec sanjuana. No labor atory evide nce of HIV infec tion. Not Available [facility] (Lab) [address], [place], [address], 03/03/2025 12:36:54 03/02/2003/02/2025 HEPAT ITIS C ANTIB [...] used inter fonseca eably . Not Available [facility] (Lab) [address], [place], [address], 03/03/2025 12:36:54 03/02/2003/02/2025 TYPE/ RH/SC REEN ABO/Rh type A POS Not Available [facility] (Lab) [address], [place], [address], 03/03/2025 12:36:55 03/02/2003/02/2025 TYPE/ RH/SC REEN antibody screen NEG Not Available [facility] (Lab) [address], [place], [address], 03/03/2025 12:36:55 03/02/2003/02/2025 TYPE/ RH/SC REEN exp date 2024 23:[address] [facility] (Lab) [address], [place], [address], 03/03/2025 12:36:55 03/02/2003/02/2025 RUBEL LA IGG ANTIB ANN, QUANT rubella antibodies, IgG Reacti ve reacti ve Not Available [facility] (Lab) [address] [place], [address], 03/03/2025 12:36:55 03/02/20 25 03/02/2025 RUBEL LA IGG ANTIB ANN, QUANT rubella antibodies, IgG quant 33.3 IU/mL >=10 Non-r eacti ve (Non- Immun e) <10 IU/mL React chris (Immu ne) > or = 10 IU/mL Not Available [facility] (Lab) [address], [place], [address], 03/03/2025 12:36:55 03/02/20 25 03/02/2025 HEMOG LOBIN [...] >8.0% Actio n sugge sted Not Available [facility] (Lab) [address], [place], [address], 03/03/2025 12:36:55 03/02/20 25 03/02/2025 RPR SCREE N, REFLE X TITER /CONF IRMAT ION RPR qualitative Nonrea ctive nonrea ctive Not Available [facility] (Lab) [address], [place], [address], 03/03/2025 12:36:56 03/08/20 25 03/08/2025 GTT - GESTA MIGUEL ÁNGEL L, 3 HOUR, ACOG glucose, fasting acog 83 mg/dL 70-94 Not Available [facility] (Lab) [address], [place], [address], 03/09/2025 07:22:26 03/08/20 25 03/08/2025 GTT - GESTA MIGUEL ÁNGEL L, 3 HOUR, ACOG glucose, 1 hour acog 167 mg/dL 70-179 Not Available [facility] (Lab) [address], [place], [address], 03/09/2025 07:22:26 03/08/20 25 03/08/2025 GTT - GESTA MIGUEL ÁNGEL L, 3 HOUR, ACOG glucose, 2 hour acog 186 mg/dL 70-154 high Not Available [facility] (Lab) [address], [place], [address], 03/09/2025 07:22:26 03/08/20 25 03/08/2025 GTT - GESTA MIGUEL ÁNGEL L, 3 HOUR, ACOG glucose, 3 hour acog 173 mg/dL 70-139 high Not Available [facility] (Lab) [address], [place], [address], 03/09/2025 07:22:26 03/30/20 25 03/30/2025 WOMEN 'S HEALT H SWAB PLUS, KEVON bacterial vaginosis (bv), tma Negati ve negati ve Not Available [facility] (Lab) [address] [place], [address], 04/01/2025 15:13:33 03/30/20 25 03/30/2025 WOMEN 'S HEALT H SWAB PLUS, KEVON bro species, tma Positi ve negati ve abnormal Not Available [facility] (Lab) [address] [place], [address], 04/01/2025 15:13:33 03/30/20 25 03/30/2025 WOMEN 'S HEALT H SWAB PLUS, KEVON bro glabrata, tma Negati ve negati ve Not Available [facility] (Lab) [address] [place], [address], 04/01/2025 15:13:33 03/30/20 25 03/30/2025 WOMEN 'S HEALT H SWAB PLUS, KEVON trichomonas vaginalis, tma Positi ve negati ve abnormal Not Available [facility] (Lab) [address], [place], [address], 04/01/2025 15:13:33 03/30/2003/30/2025 WOMEN 'S HEALT H SWAB PLUS, KEVON chlamydia trachomatis, PCR Negati ve negati ve Not Available [facility] (Lab) [address], [place], [address], 04/01/2025 15:13:33 03/30/20 25 03/30/2025 WOMEN 'S HEALT H SWAB PLUS, KEVON neisseria gonorrhoeae, PCR [...] ded in this panel . Not Available [facility] (Lab) [address], [place], [address], 04/01/2025 15:13:33 02/17/2002/16/2025 US, obste tric, follo w-up No observ ation record ed. [email or web address] Lisman [address], [place], [address], 02/16/2025 17:56:15 02/17/2026 0202/16/2025 US, obste tric, follo w-up No observ ation record ed. [email or web address] Ruthie [address], [place], [address], 03/01/2025 12:13:11 03/01/20 25 03/01/2025 US, obste tric, limit ed No observ ation record ed. [email or web address] Ruthie [address], [place], [address], 03/02/2025 09:56:04 03/01/20 25 03/01/2025 US, obste tric, limit ed No observ ation record ed. [facility] [address], [place], [address], 03/01/2025 16:15:36 03/21/20 25 03/21/2025 US, obste tric, follo w-up No observ ation record ed. [email or web address] Lisman [address], [place], [address], 03/21/2025 15:50:40 03/21/20 25 03/21/2025 US, obste tric, follo w-up No observ ation record ed. Ruthie [address], [place], [address], 03/25/2025 16:14:26 04/04/20 25 04/04/2025 imagi ng/di agnos tic resul t No observ ation record ed. [facility] [address], [place], [address], 04/05/2025 10:52:00 04/12/20 25 04/12/2025 US, obste tric, follo w-up No observ ation record ed. [facility] [address], [place], [address], 04/12/2025 14:17:26 04/12/20 25 04/12/2025 US, obste tric, follo w-up No observ ation record ed. kirby Hendricks [address], [place], [address], 04/15/2025 10:42:08 04/26/20 25 04/26/2025 US, obste tric, follo w-up No observ ation record ed. [address] [facility] [address], [address], 04/26/2025 16:57:52 04/27/20 25 04/26/2025 US, obste tric, follo w-up No observ ation record ed. [address], [address], 04/28/2025 22:03:11 04/30/20 25 04/30/2025 imagi ng/di agnos tic resul t No observ ation record ed. [facility] [address], [place], [address], 05/02/2025 11:12:20 05/03/20 25 05/03/2025 imagi ng/di agnos tic resul t No observ ation record ed. [facility] [address], [address], 05/03/2025 13:20:09 05/03/20 25 05/03/2025 imagi ng/di agnos tic resul t No observ ation record ed. [facility] [address], [place], [address], 05/03/2025 13:24:51 Result Notes None recorded. Problems Name Problem SNOMED Code Status Onset Date Resolution Date Notes Provider Name and Address Organization Details Recorded Time 48001007 Active 2024 Nikki miguel [place] - [facility] 15:10:19 Uncomplic ated asthma 388859324 Active 2024 albuterol inhlaer prn 2 rounds steroids in plan daily inhaler Vicky Burris, LASHONDA [address], [place], [address], [place] [facility] 17:45:27 Platelet count above reference range 176676694 Active 2024 480 @ 28wks rpt labs Olesya miguel, [facility] 12:16:37 Gestation al diabetes mellitus 78588290 Active 2024 checking bs QID, serial growth us Faxed Referral [facility] for DT 03/09 Olesya miguel, [facility] 12:25:55 Infection by Trichomon as 55837586 Active 2024 Nithya fuentes [facility], [facility] 14:24:54 Infection by Trichomon as 41751680 Active 2024 Nithya fuentes [facility], [facility] 14:24:54 Notes:Some problems listed i n Document: #[id number] could not be added to this patient's chart. Please review this document and add these problems to the patient's chart manually as needed. Problem Notes None recorded. Medical Equipment None Reported. Allergies Allergen ID Allergen Name Allergen Category Reaction Reaction Severity Criticality Documentation Date Start Date Code Code System Note Provider Name and Address Organization Details Recorded Time 08425 banana extract food,medi cation anaphylax is Not available Not available 02/16/2025 07067 9 RxNorm Nikki Rosalie miguel, [facility] 14:34:13 Medications Name Sig Start Date [...] Sure Comfort Pen Needle 31 gauge x 07/18 USE 1 NEEDLE INSTRUCTE D 2 TIMES [...] No t Available Vitals Date Recorded Body weight Systolic And Diastolic Provider Name and Address Organization Details Last Updated DateTime 04/12/2025 01791.55859 g 108/72 mm[Hg] Jen Calderon [facility] 04/12/2025 13:03:25 Social History Question Answer Notes LastModified by Organizat ion Details LastModified Time Tobacco Smoking Status Never Smoker Nikki miguel, [facility] 02/16/2025 14:36:54 Do You Have An Advance Directive? No [email or web address] Information n ot available 02/16/2025 How Many Years Have You Consumed Alcohol? 13 [email or web address] Information not available 02/16/2025 Are You Blind Or Do You Have Difficulty Seeing? No [email or web address] Information n ot available 02/16/2025 What Is Your Level Of Caffeine Consumption? Occasional [email or web address] Information not available 02/16/2025 In The 14 Days Before Symptom Onset, Have You Had Close Contact With A Laboratory-confirm ed COVID-19 While That Case Was Ill? No [email or web address] Information n ot available 02/16/2025 In The 14 Days Before Symptom Onset, Have You Had Close Contact With A Person Who Is Under Investigation For COVID-19 While That Person Was Ill? No Information not available 02/16/2025 Have You Been To An Area Known To Be High Risk For COVID-19? No [email or web address] Information not available 02/16/2025 Are You Deaf Or Do You Have Serious Difficulty Hearing? No [email or web address] Information not available 02/16/2025 What Type Of Diet Are You Following? REGULAR [email or web address] Information n ot available 02/16/2025 What Is The Highest Grade Or Level Of School You Have Completed Or The Highest Degree You Have Received? [id number] [email or web address] Information not available 02/16/2025 Are There Any Guns Present In Your Home? No Information not available 02/16/2025 Do You Use Protection During Sex? Always Information not available 02/16/2025 Do You Use Your Seat Belt Or Car Seat Routinely? Yes [email or web address] Information not available 02/16/2025 Are You Sexually Active? Yes [email or web address] Information not available 02/16/2025 Do You Have Smoke And Carbon Monoxide Detectors In Your Home? Yes [email or web address] Information not available 02/16/2025 How Much Tobacco Do You Smoke? No [email or web address] Information not available 02/16/2025 Do You Use Sunscreen Routinely? Yes Information not available 02/16/2025 Has Tobacco Cessation Counseling Been Provided? No [email or web address] Information not available 02/16/2025 Have You Used IV Drugs? No [email or web address] Information not available 02/16/2025 Do You Have Difficulty Walking Or Climbing Stairs? No [email or web address] Information not available 02/16/2025 Sex: Unknown Functional Status Question Answer Note LastModified by Organizat ion Details LastModified Time Do you use any illicit or recreational drugs? No [email or web address] Information not available 02/16/2025 Do you or have you ever used any other forms of tobacco or nicotine? No [email or web address] Information not available 02/16/2025 What is your level of alcohol consumption? None Information not available 02/16/2025 Are you currently employed? Yes [email or web address] Information not available 02/16/2025 Are you able to walk independently without assistance or assistive devices? 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 No [email or web address] Information not available 02/16/2025 What is your exercise level? Moderate [email or web address] Information not available 02/16/2025 Mental Status Question Answer Note LastModified by Organization D etails LastModified Time Do you feel stressed (tense, restless, nervous, or anxious, or unable to sleep at night)? [id number] [email or web address] Information not available 02/16/2025 Family History Relationship Description Onset Age of this Age Resolved Age Notes LastModified by Organization Details LastModified Time Mother Diabetes mellitus [email or web address] Not available 2024 14:34:18 Maternal Aunt Diabetes [...] ICD10 Code Diagnosis IMO Codes Diagnosis Note [id number] [facility] [address],[place] [address] 03/16/2025 09:31:29 03/16/2025 13:26:40 Gestational diabetes mellitus 37387044 O24.419 [id number] Oracio Yoon MD [facility] [address],[place] [address] 03/21/2025 09:09:41 03/21/2025 09:51:13 Gestational diabetes mellitus 85065056 O24.410 Z3A.30 [id number] Vicky Burris CNM [facility] [address],[place] [address] 03/30/2025 17:16:04 04/02/2025 18:15:20 Gestation period, 32 weeks 4644455 Z3A.32 7832551 Acute vaginitis 73906097 N76.0 16074 [id number] Oracio Yoon MD [facility] [address],[place] [address] 04/12/2025 12:02:21 04/12/2025 12:52:43 Gestational diabetes mellitus 75961987 O24.410 Z3A.33 [id number] Vicky Burris CNM [facility] [address],[place] [address] 04/12/2025 12:04:36 04/12/2025 13:58:27 Gestation period, 33 weeks 76354112 Z3A.33 9676126 Gestationa l diabetes mellitus 53133521 O24.415 [id number] Health Concerns Section Related Observation LastModified by Organization Detai ls LastModified Time None Recorded Concern Status LastModified by Organization Details LastModified Time None Recorded Payers Encounter Date Sequence Insurance Name Policy Number Policy Herrera Covered Member ID Herrera Member ID Guarantor Name 04/12/2025 1 *SELF PAY* Luci Sanchez Notes Date Note Type Note Provider Name and Address Organization Details Recorded Time 04/12/2025 text/html Generic HPI TemplateReported by Patient Vicky Burris CNM [address], [place], [address], [facility] 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 02/15/20 25 1 OPEN Fetus Data First Name Last Name Admitted to NICU Weight (g) Sex Living Outcome Pediatric Complications Fetus ID Race Codes Race Delivery Type [id number] Problems Problem Notes transfer of care- records re questedfluid high normal will rpt at next visit Problem Name Start Date End Date Resolution Snomed Code Not e Infection by Trichomonas 04/06/2025 22265848 Uncomplicated asthma 02/16/2025 26916984 1 albuterol inhlaer prn2 rounds steroids in pregnancyplan daily inhaler Gestational diabetes mellitus 03/09/2025 75107419 checking bs QID , serial growth usFaxed Referral [facility] for DT 03/09 Platelet count above reference range 03/04/2025 130850322 480 @ 28wks rpt labs Vaibhav Calculation [...] Weight in lbs Pre/Post Dialysis Refused Weight 195.970257017105 BP Diastolic BP Location Tested BP Systolic [...] Type Weight in lbs Pre/Post Dialysis Refused 201.117970837787 BP Diastolic BP Location Tested BP Systolic [...] Weight in lbs Pre/Post Dialysis Refused Weight 200.770149498770 BP Diastolic BP Location Tested BP Systolic BP Type 74 L arm 121 sitting Fetus Heart Rate Present Fetus Movement Comments reviewed blood sugars fastin g ok, meals some elevated, unable to get management aide due to insurance, diabetes handout given, reviewed [...] Weight in lbs Pre/Post Dialysis Refused Weight 202.765320975348 BP Diastolic BP Location Tested BP Systolic BP Type 74 L arm 111 sitting Fetus Heart Rate Present A 150 Present Fetus Movement A Yes Comments anxiety increasing has been on ssri made her suicidal, will have her consult t quita cowann. continue seeing therapist, check vaginal culture has [...] Type Weight in lbs Pre/Post Dialysis Refused 203.74805971156 BP Diastolic BP Location Tested BP Systolic BP Type 72 L arm 108 sitting Fetus Heart Rate Present Fetus Movement A Yes Comments unable to get insulin due to insurance, disc with dr. lu, start metformin 500mg BID, ssm consult, not following diet discussed risks including LGA, lung immaturity and demise, pt needs NSTS and BPP will try and schedule at [facility] due to insurance conflict. precautions and education f/u 2 weeks here , or earlier if needs to do her testing here Flowsheet Date 04/26/2025 Vega Score Blood Edema Fundus Height Fundus Units Glucose Ketones Leukocytes Nitrite Labor Signs Protein Cervic Dilation Cervic Effacement Cervic Station Type Weight in lbs Pre/Post Dialysis Refused Weight 204.602062382189 BP Diastolic BP Location Tested BP Systolic [...] Weight in lbs Pre/Post Dialysis Refused Weight 205.673491473412 BP Diastolic BP Location Tested BP Systolic [...]
--- OUTSIDE RECORDS SUMMARY | 2025-05-03 14:18 | XMS_ITS | Continuity of Care Document ---
Author Organization [facility] [place] Address [address] [place] [address] Assessment Encounter Date Assessment Date Assessment LastModified by Organization Details LastModified Time 03/02/2025 03/02/2025 Patient is _28__weeks . Discussed plan. Not available 03/02/2025 10:25:24 Plan of Treatment Reminders Order Date Submit [...] d. Imaging None recorde d. Medication Orders None recorde d. Patient TargetsNo targets recorded. Patient InstructionsNo instructions recorded. Reason for Referral None Reported. Results Created Date Observation Date Name Description Value Unit Range Abnormal Flag Note LastModifiedBy Organization Detail LastModifiedTime 03/02/2003/02/2025 HEMAT OCRIT (HCT) HCT 36.2 % (based on docume nted legal sex) 34.0-4 5.0 Not Available [facility] (Lab) [address] [facility], [place], [address], 03/03/2025 12:36:52 03/02/2003/02/2025 CBC W/DIF F WBC 14.2 10'3/ uL 3.5-10 .5 high Not Available [facility] (Lab) [address] [facility], [place], [address], 03/03/2025 12:36:52 03/02/20 25 03/02/2025 CBC W/DIF F RBC 4.65 10'6/ uL (based on docume nted legal sex) 3.80-5 .20 Not Available [facility] (Lab) [address] [facility], [place], [address], 03/03/2025 12:36:52 03/02/20 25 03/02/2025 CBC W/DIF F HGB 12.7 g/dL (based on docume nted legal sex) 11.6-1 5.4 Not Available [facility] (Lab) [address] [facility], [place], [address], 03/03/2025 12:36:52 03/02/20 25 03/02/2025 CBC W/DIF F HCT 36.2 % (based on docume nted legal sex) 34.0-4 5.0 Not Available [facility] (Lab) [address] [facility], [place], [address], 03/03/2025 12:36:52 03/02/20 25 03/02/2025 CBC W/DIF F MCV 77.8 fL 80.0-9 9.0 low Not Available [facility] (Lab) [address] [facility], [place], [address], 03/03/2025 12:36:52 10/29/20 25 03/02/2025 CBC W/DIF F MCH 27.3 pg 27.0-3 4.0 Not Available [facility] (Lab) [address] [facility], [place], [address], 03/03/2025 12:36:52 03/02/20 25 03/02/2025 CBC W/DIF F MCHC 35.1 g/dL 32.0-3 5.5 Not Available [facility] (Lab) [address] [facility], [place], [address], 03/03/2025 12:36:52 03/02/2003/02/2025 CBC W/DIF F RDW 15.1 % 11.0-1 5.0 high Not Available [facility] (Lab) [address] [facility], [place], [address], 03/03/2025 12:36:52 03/02/20 25 03/02/2025 CBC W/DIF F plt 480 10'3/ uL 150-40 0 high Not Available [facility] (Lab) [address] [facility], [place], [address], 03/03/2025 12:36:52 03/02/20 25 03/02/2025 CBC W/DIF F MPV 9.4 fL 8.8-12 .1 Not Available [facility] (Lab) [address] [facility], [place], [address], 03/03/2025 12:36:52 03/02/20 25 03/02/2025 CBC W/DIF F NRBC's 0.0 % 0.0 Not Available [facility] (Lab) [address] [facility], [place], [address], 03/03/2025 12:36:52 03/02/20 25 03/02/2025 CBC W/DIF F absolute NRBCs 0.0 10'3/ uL no refere nce range establ ished Not Available [facility] (Lab) [address] [facility], [place], [address], 03/03/2025 12:36:52 03/02/20 25 03/02/2025 CBC W/DIF F neutrophils 75.4 % 34.0-7 3.0 high Not Available [facility] (Lab) [address] [facility], [place], [address], 03/03/2025 12:36:52 03/02/20 25 03/02/2025 CBC W/DIF F lymphocytes 17.1 % 15.0-5 0.0 Not Available [facility] (Lab) [address] [facility], [place], [address], 03/03/2025 12:36:52 03/02/20 25 03/02/2025 CBC W/DIF F monocytes 4.7 % 1.0-15 .0 Not Available [facility] (Lab) [address] [place], [address], 03/03/2025 12:36:52 03/02/20 25 03/02/2025 CBC W/DIF F eosinophils 1.4 % 0.0-8. 0 Not Available [facility] (Lab) [address] [facility], [place], [address], 03/03/2025 12:36:52 03/02/20 25 03/02/2025 CBC W/DIF F basophils 0.4 % 0.0-2. 0 Not Available [facility] (Lab) [address] [facility], [place], [address], 03/03/2025 12:36:52 03/02/20 25 03/02/2025 CBC W/DIF [...] separ ately if prese nt. Not Available [facility] (Lab) [address] [facility], [place], [address], 03/03/2025 12:36:52 03/02/20 25 03/02/2025 CBC W/DIF F absolute neutrophils 10.7 10'3/ uL 1.5-8. 0 high Not Available [facility] (Lab) [address] [facility], [place], [address], 03/03/2025 12:36:52 03/02/20 25 03/02/2025 CBC W/DIF F absolute lymphocytes 2.4 10'3/ uL 1.0-4. 0 Not Available [facility] (Lab) [address] [facility], [place], [address], 03/03/2025 12:36:52 03/02/20 25 03/02/2025 CBC W/DIF F absolute monocytes 0.7 10'3/ uL 0.2-1. 0 Not Available [facility] (Lab) [address] [facility], [place], [address], 03/03/2025 12:36:52 03/02/20 25 03/02/2025 CBC W/DIF F absolute eosinophils 0.2 10'3/ uL 0.0-0. 6 Not Available [facility] (Lab) [address] [facility], [place], [address], 03/03/2025 12:36:52 03/02/20 25 03/02/2025 CBC W/DIF F absolute basophils 0.1 10'3/ uL 0.0-0. 3 Not Available [facility] (Lab) [address] [facility], [place], [address], 03/03/2025 12:36:52 03/02/20 25 03/02/2025 CBC W/DIF [...] almonte book. nm.or g/gen derx Not Available [facility] (Lab) [address] [facility], [place], [address], 03/03/2025 12:36:52 03/02/2003/02/2025 HEMOG LOBIN (HGB) HGB 12.7 g/dL (based on docume nted legal sex) 11.6-1 5.4 Not Available [facility] (Lab) [address] [facility], [place], [address], 03/03/2025 12:36:52 03/02/20 25 03/02/2025 GTT - GESTA MIGUEL ÁNGEL L SCREE N, ACOG OB glucose, 1 hour screen 179 mg/dL 70-135 high Not Available [facility] (Lab) [address] [facility], [place], [address], 03/03/2025 12:36:53 03/02/2003/02/2025 HEPAT ITIS B SURFA CE ANTIG EN hepatitis B surface antigen Non-re active non-re active The test metho d is elect deandre mil inesc ence immun oassa y perfo rmed on the Deandre Stan e801. Value s obtai pauline with diffe rent assay metho ds by other labor atori es canno t be used inter fonseca eably . Not Available [facility] (Lab) [address] [facility], [place], [address], 03/03/2025 12:36:53 03/02/2003/02/2025 HIV 1/2 ANTIG EN/AN TIBOD Y, REFLE X CONFI RMATI ON HIV antigen/anti body Nonrea ctive nonrea ctive HIV-1 antig en and HIV-1 /HIV- 2 antib odies were not detec sanjuana. No labor atory evide nce of HIV infec tion. Not Available [facility] (Lab) [address] [facility], [place], [address], 03/03/2025 12:36:54 03/02/2003/02/2025 HEPAT ITIS C ANTIB [...] used inter fonseca eably . Not Available [facility] (Lab) [address] [facility], [place], [address], 03/03/2025 12:36:54 03/02/2003/02/2025 TYPE/ RH/SC REEN ABO/Rh type A POS Not Available [facility] (Lab) [address] [facility], [place], [address], 03/03/2025 12:36:55 03/02/20 25 03/02/2025 TYPE/ RH/SC REEN antibody screen NEG Not Available [facility] (Lab) [address] [facility], [place], [address], 03/03/2025 12:36:55 03/02/2003/02/2025 TYPE/ RH/SC REEN exp date 2024 23:59 Not Available [facility] (Lab) [address] [facility], [place], [address], 03/03/2025 12:36:55 03/02/2003/02/2025 RUBEL LA IGG ANTIB ANN, QUANT rubella antibodies, IgG Reacti ve reacti ve Not Available [facility] (Lab) [address] [facility], [place], [address], 03/03/2025 12:36:55 10/29/03/02/2025 RUBEL LA IGG ANTIB ANN, QUANT rubella antibodies, IgG quant 33.3 IU/mL >=10 Non-r eacti ve (Non- Immun e) <10 IU/mL React chris (Immu ne) > or = 10 IU/mL Not Available [facility] (Lab) [address] [facility], [place], [address], 03/03/2025 12:36:55 03/02/2003/02/2025 HEMOG LOBIN A1C hemoglobin A1C 6.1 % [...] >8.0% Actio n sugge sted Not Available [facility] (Lab) [address] [facility], [place], [address], 03/03/2025 12:36:55 03/02/20 25 03/02/2025 RPR SCREE N, REFLE X TITER /CONF IRMAT ION RPR qualitative Nonrea ctive nonrea ctive Not Available [facility] (Lab) [address] [facility], [place], [address], 03/03/2025 12:36:56 02/17/20 25 02/16/2025 US, obste tric follo w-up No observ ation record ed. [email or web address] [place] [address], [place], [address], 02/16/2025 17:56:15 02/17/20 25 02/16/2025 US, obste tric, follo w-up No observ ation record ed. [email or web address] [address], [place], [address], 03/01/2025 12:13:11 03/01/20 25 03/01/2025 US, obste tric, limit ed No observ ation record ed. [email or web address] [address], [place], [address], 03/02/2025 09:56:04 03/01/20 25 03/01/2025 US, obste tric, limit ed No observ ation record ed. [facility] [address], [place], [address], 03/01/2025 16:15:36 03/21/20 25 03/21/2025 US, obste tric, follo w-up No observ ation record ed. [email or web address] [place] [address] [address], [place], [address], 03/21/2025 15:50:40 03/21/20 25 03/21/2025 US, obste tric, follo w-up No observ ation record ed. [email or web address] [address], [place], [address], 03/25/2025 16:14:26 04/04/20 25 04/04/2025 imagi ng/di agnos tic resul t No observ ation record ed. [facility] [address], [place], [address], 04/05/2025 10:52:00 04/12/20 25 04/12/2025 US, obste tric, follo w-up No observ ation record ed. [facility] [address], [place], [address], 04/12/2025 14:17:26 04/12/20 25 04/12/2025 US, obste tric, follo w-up No observ ation record ed. [email or web address] [address], [place], [address], 04/15/2025 10:42:08 04/26/20 25 04/26/2025 US, obste tric, follo w-up No observ ation record ed. [address] [facility] [address], [address], 04/26/2025 16:57:52 04/27/20 25 04/26/2025 US, obste tric, follo w-up No observ ation record ed. [address], [address], 04/28/2025 22:03:11 04/30/20 25 04/30/2025 imagi ng/di agnos tic resul t No observ ation record ed. [facility] [address], [place], [address], 05/02/2025 11:12:20 05/03/20 25 05/03/2025 imagi ng/di agnos tic resul t No observ ation record ed. [address], [address], 05/03/2025 13:20:09 05/03/20 25 05/03/2025 imagi ng/di agnos tic resul t No observ ation record ed. [facility] [address] [facility], [place], [address], 05/03/2025 13:24:51 Result Notes None recorded. Problems Name Problem SNOMED Code Status Onset Date Resolution Date Notes Provider Name and Address Organization Details Recorded Time 93790293 Active 2024 Nikki Wiggins [facility] [place] - [facility] 15:10:19 Uncomplic ated asthma 129696760 Active 2024 albuterol inhlaer prn 2 rounds steroids in plan daily inhaler Vicky Burris, CNM [address], [place], [address], [place] [facility] 17:45:27 Platelet count above reference range 276554374 Active 2024 480 @ 28wks rpt labs Olesya miguel, [facility] 12:16:37 Gestation al diabetes mellitus 95486114 Active 2024 checking bs QID, serial growth us Faxed Referral [facility] for DT 03/[address] [facility] 12:25:55 Infection by Trichomon as 65853823 Active [address] [facility] 14:24:54 Infection by Trichomon as 66227059 Active 2024 Nithya fuentes [facility], [facility] 14:24:54 Notes:Some problems listed i n Document: #[id number] could not be added to this patient's chart. Please review this document and add these problems to the patient's chart manually as needed. Problem Notes None recorded. Medical Equipment None Reported. Allergies Allergen ID Allergen Name Allergen Category Reaction Reaction Severity Criticality Documentation Date Start Date Code Code System Note Provider Name and Address Organization Details Recorded Time 31714 banana extract food,medi cation anaphylax is Not available Not available 02/16/2025 38139 9 RxNorm Nikki miguel, [facility] 14:34:13 Medications Name Sig Start Date [...] and Address Organization Details Last Updated DateTime 03/02/2025 92796.67820 g 116/77 mm[Hg] Jen Calderon [facility] 03/02/2025 10:14:19 Social History Question Answer Notes LastModified by Organizat ion Details LastModified Time Tobacco Smoking Status Never Smoker Nikki miguel, [facility] 02/16/2025 14:36:54 Do You Have An Advance Directive? No Information n ot available 02/16/2025 How Many Years Have You Consumed Alcohol? 13 [email or web address] Information not available 02/16/2025 Are You Blind Or Do You Have Difficulty Seeing? No [email or web address] Information n ot available 02/16/2025 What Is Your Level Of Caffeine Consumption? Occasional Information not available 02/16/2025 In The 14 Days Before Symptom Onset, Have You Had Close Contact With A Laboratory-confirm ed COVID-19 While That Case Was Ill? No [email or web address] Information n ot available 02/16/2025 In The 14 Days Before Symptom Onset, Have You Had Close Contact With A Person Who Is Under Investigation For COVID-19 While That Person Was Ill? No [email or web address] Information not available 02/16/2025 Have You Been To An Area Known To Be High Risk For COVID-19? No Information not available 02/16/2025 Are You Deaf Or Do You Have Serious Difficulty Hearing? No [email or web address] Information not available 02/16/2025 What Type Of Diet Are You Following? REGULAR [email or web address] Information n ot available 02/16/2025 What Is The Highest Grade Or Level Of School You Have Completed Or The Highest Degree You Have Received? HU54901-8 [email or web address] Information not available 02/16/2025 Are There Any Guns Present In Your Home? No [email or web address] Information not available 02/16/2025 Do You Use Protection During Sex? Always [email or web address] Information not available 02/16/2025 Do You Use Your Seat Belt Or Car Seat Routinely? Yes [email or web address] Information not available 02/16/2025 Are You Sexually Active? Yes [email or web address] Information not available 02/16/2025 Do You Have Smoke And Carbon Monoxide Detectors In Your Home? Yes Information not available 02/16/2025 How Much Tobacco Do You Smoke? No Information not available 02/16/2025 Do You Use Sunscreen Routinely? Yes [email or web address] Information not available 02/16/2025 Has Tobacco Cessation Counseling Been Provided? No [email or web address] Information not available 02/16/2025 Have You Used IV Drugs? No [email or web address] Information not available 02/16/2025 Do You Have Difficulty Walking Or Climbing Stairs? No [email or web address] Information not available 02/16/2025 Sex: Unknown Functional Status Question Answer Note LastModified by Organizat ion Details LastModified Time Do you use any illicit or recreational drugs? No [email or web address] Information not available 02/16/2025 Do you or have you ever used any other forms of tobacco or nicotine? No Information not available 02/16/2025 What is your level of alcohol consumption? None [email or web address] Information not available 02/16/2025 Are you currently employed? Yes Information not available 02/16/2025 Are you able to walk independently without assistance or assistive devices? 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 No [email or web address] Information not available 02/16/2025 What is your exercise level? Moderate [email or web address] Information not available 02/16/2025 Mental Status Question Answer Note LastModified by Organization D etails LastModified Time Do you feel stressed (tense, restless, nervous, or anxious, or unable to sleep at night)? [id number] [email or web address] Information not available 02/16/2025 Family History Relationship Description Onset Age of this Age Resolved Age Notes LastModified by Organization Details LastModified Time Mother Diabetes mellitus [email or web address] Not available 2024 14:34:18 Maternal Aunt Diabetes mellitus [email or web address] Not available 2024 14:34:18 Maternal Grandmother Diabetes [...] ICD10 Code Diagnosis IMO Codes Diagnosis Note [id number] Vicky Burris CNM [place] [address] [address] 02/16/2025 14:19:20 02/17/2025 09:09:19 Gestation period, 26 weeks 98829861 Z3A.26 [id number] Asthma 847210163 J45.90 9 [id number] Oracio Yoon MD [place] [address],[place] [address] 02/16/2025 15:03:38 02/16/2025 15:58:51 care status 510401284 O36.5920 Z3A.26 303795 [id number] Oracio oYon MD [place] [address],[place] [address] 03/01/2025 14:44:23 03/01/2025 15:32:30 Obstetric procedure 419656539 Z03.71 Z3A.27 1596603 [id number] Vicky Burris CNM [place] [address],[place] [address] 03/02/2025 09:48:08 03/02/2025 10:27:40 Gestation period, 28 weeks 45596553 Z3A.28 [id number] Health Concerns Section Related Observation LastModified by Organization Detai ls LastModified Time None Recorded Concern Status LastModified by Organization Details LastModified Time None Recorded Payers Encounter Date Sequence Insurance Name Policy Number Policy Herrera Covered Member ID Herrera Member ID Guarantor Name 03/02/2025 1 [facility] Carolyne Sanchez [id number] Carolyne Sanchez Notes Date Note Type Note Provider Name and Address Organization Details Recorded Time 03/02/2025 text/html Generic HPI TemplateReported by Patient Vicky Burris CNM [address], [place], [address], [facility] [place] 03/02/2025 10:25:31 OBGyn Episode Ob Episode Information Episode Created Date Number of Fetuses Patient Bloodtype Patient rh Status Prepregnancy Weight lbs Domestic Partner Domestic Partner Phone Father Name Wallpaper Hanger Status 02/15/20 25 1 OPEN Fetus Data First Name Last Name Admitted to NICU Weight (g) Sex Living Outcome Pediatric Complications Fetus ID Race Codes Race Delivery Type [id number] Problems Problem Notes transfer of care- records re questedfluid high normal will rpt at next visit Problem Name Start Date End Date Resolution Snomed Code Not e Infection by Trichomonas 04/06/2025 77466843 Uncomplicated asthma 02/16/2025 24074878 1 albuterol inhlaer prn2 rounds steroids in pregnancyplan daily inhaler Gestational diabetes mellitus 03/09/2025 22975213 checking bs QID , serial growth usFaxed Referral [facility] for DT 03/09 Platelet count above reference range 03/04/2025 909625323 480 @ 28wks rpt labs Vaibhav Calculation [...] Weight in lbs Pre/Post Dialysis Refused Weight 195.548319214011 BP Diastolic BP Location Tested BP Systolic [...] Type Weight in lbs Pre/Post Dialysis Refused 201.539179171846 BP Diastolic BP Location Tested BP Systolic [...] Weight in lbs Pre/Post Dialysis Refused Weight 200.049045751497 BP Diastolic BP Location Tested BP Systolic BP Type 74 L arm 121 sitting Fetus Heart Rate Present Fetus Movement Comments reviewed blood sugars fastin g ok, meals some elevated, 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 lu, start metformin 500mg BID, ssm consult, not following diet discussed risks including LGA, lung immaturity and demise, pt needs NSTS and BPP will try and schedule at [facility] due to insurance conflict. precautions and education f/u 2 weeks here , or earlier if needs to do her testing here Flowsheet Date 04/26/2025 Vega Score Blood Edema Fundus Height Fundus Units Glucose Ketones Leukocytes Nitrite Labor Signs Protein Cervic Dilation Cervic Effacement Cervic Station Type Weight in lbs Pre/Post Dialysis Refused Weight 204.884936763603 BP Diastolic BP Location Tested BP Systolic [...] Weight in lbs Pre/Post Dialysis Refused Weight 205.912246605832 BP Diastolic BP Location Tested BP Systolic [...]
--- OUTSIDE RECORDS SUMMARY | 2025-05-03 14:18 | XMS_ITS | Continuity of Care Document ---
Author Organization [facility], [place] Address [address] [place] [address] Assessment Encounter Date Assessment Date Assessment LastModified by Organization Details LastModified Time 04/12/2025 04/12/2025 Patient is ___33weeks . Discussed plan. Not available 04/12/2025 13:50:32 Plan of Treatment Reminders Order Date Submit [...] available Not available INDUCTI ON 2025 12:00P Allison Burris CNM Not available Not available Not [...] nted legal sex) 34.0-4 5.0 Not Available [facility] (Lab) [address], [place], [address], 03/03/2025 12:36:52 03/02/2003/02/2025 CBC W/DIF F WBC 14.2 10'3/ uL 3.5-10 .5 high Not Available [facility] (Lab) [address], [place], [address], 03/03/2025 12:36:52 03/02/20 25 03/02/2025 CBC W/DIF F RBC 4.65 10'6/ uL (based on docume nted legal sex) 3.80-5 .20 Not Available [facility] (Lab) [address], [place], [address], 03/03/2025 12:36:52 03/02/20 25 03/02/2025 CBC W/DIF F HGB 12.7 g/dL (based on docume nted legal sex) 11.6-1 5.4 Not Available [facility] (Lab) [address], [place], [address], 03/03/2025 12:36:52 03/02/20 25 03/02/2025 CBC W/DIF F HCT 36.2 % (based on docume nted legal sex) 34.0-4 5.0 Not Available [facility] (Lab) [address], [place], [address], 03/03/2025 12:36:52 03/02/20 25 03/02/2025 CBC W/DIF F MCV 77.8 fL 80.0-9 9.0 low Not Available [facility] (Lab) [address], [place], [address], 03/03/2025 12:36:52 03/02/20 25 03/02/2025 CBC W/DIF F MCH 27.3 pg 27.0-3 4.0 Not Available [facility] (Lab) [address], [place], [address], 03/03/2025 12:36:52 03/02/20 25 03/02/2025 CBC W/DIF F MCHC 35.1 g/dL 32.0-3 5.5 Not Available [facility] (Lab) [address], [place], [address], 03/03/2025 12:36:52 03/02/20 25 03/02/2025 CBC W/DIF F RDW 15.1 % 11.0-1 5.0 high Not Available [facility] (Lab) [address], [place], [address], 03/03/2025 12:36:52 03/02/20 25 03/02/2025 CBC W/DIF F plt 480 10'3/ uL 150-40 0 high Not Available [facility] (Lab) [address], [place], [address], 03/03/2025 12:36:52 03/02/20 25 03/02/2025 CBC W/DIF F MPV 9.4 fL 8.8-12 .1 Not Available [facility] (Lab) [address], [place], [address], 03/03/2025 12:36:52 03/02/20 25 03/02/2025 CBC W/DIF F NRBC's 0.0 % 0.0 Not Available [facility] (Lab) [address], [place], [address], 03/03/2025 12:36:52 03/02/20 25 03/02/2025 CBC W/DIF F absolute NRBCs 0.0 10'3/ uL no refere nce range establ ished Not Available [facility] (Lab) [address], [place], [address], 03/03/2025 12:36:52 03/02/20 25 03/02/2025 CBC W/DIF F neutrophils 75.4 % 34.0-7 3.0 high Not Available [facility] (Lab) [address], [place], [address], 03/03/2025 12:36:52 03/02/20 25 03/02/2025 CBC W/DIF F lymphocytes 17.1 % 15.0-5 0.0 Not Available [facility] (Lab) [address], [place], [address], 03/03/2025 12:36:52 03/02/20 25 03/02/2025 CBC W/DIF F monocytes 4.7 % 1.0-15 .0 Not Available [facility] (Lab) [address], [place], [address], 03/03/2025 12:36:52 03/02/20 25 03/02/2025 CBC W/DIF F eosinophils 1.4 % 0.0-8. 0 Not Available [facility] (Lab) [address] [place], [address], 03/03/2025 12:36:52 03/02/20 25 03/02/2025 CBC W/DIF F basophils 0.4 % 0.0-2. 0 Not Available [facility] (Lab) [address], [place], [address], 03/03/2025 12:36:52 03/02/20 25 03/02/2025 CBC W/DIF [...] separ ately if prese nt. Not Available [facility] (Lab) [address] [facility] [place], [address], 03/03/2025 12:36:52 03/02/20 25 03/02/2025 CBC W/DIF F absolute neutrophils 10.7 10'3/ uL 1.5-8. 0 high Not Available [facility] (Lab) [address], [place], [address], 03/03/2025 12:36:52 03/02/20 25 03/02/2025 CBC W/DIF F absolute lymphocytes 2.4 10'3/ uL 1.0-4. 0 Not Available [facility] (Lab) [address], [place], [address], 03/03/2025 12:36:52 03/02/20 25 03/02/2025 CBC W/DIF F absolute monocytes 0.7 10'3/ uL 0.2-1. 0 Not Available [facility] (Lab) [address], [place], [address], 03/03/2025 12:36:52 03/02/20 25 03/02/2025 CBC W/DIF F absolute eosinophils 0.2 10'3/ uL 0.0-0. 6 Not Available [facility] (Lab) [address], [place], [address], 03/03/2025 12:36:52 03/02/20 25 03/02/2025 CBC W/DIF F absolute basophils 0.1 10'3/ uL 0.0-0. 3 Not Available [facility] (Lab) [address], [place], [address], 03/03/2025 12:36:52 03/02/20 25 03/02/2025 CBC W/DIF [...] almonte book. nm.or g/gen derx Not Available [facility] (Lab) [address], [place], [address], 03/03/2025 12:36:52 03/02/2003/02/2025 HEMOG LOBIN (HGB) HGB 12.7 g/dL (based on docume nted legal sex) 11.6-1 5.4 Not Available [facility] (Lab) [address], [place], [address], 03/03/2025 12:36:52 03/02/20 25 03/02/2025 GTT - GESTA MIGUEL ÁNGEL L SCREE N, ACOG OB glucose, 1 hour screen 179 mg/dL 70-135 high Not Available [facility] (Lab) [address], [place], [address], 03/03/2025 12:36:53 03/02/2003/02/2025 HEPAT ITIS B SURFA CE ANTIG EN hepatitis B surface antigen Non-re active non-re active The test metho d is elect deandre milum inesc ence immun oassa y perfo rmed on the Deandre Stan e801. Value s obtai pauline with diffe rent assay metho ds by other labor atori es canno t be used inter fonseca eably . Not Available [facility] (Lab) [address] [place], [address], 03/03/2025 12:36:53 03/02/2003/02/2025 HIV 1/2 ANTIG EN/AN TIBOD Y, REFLE X CONFI RMATI ON HIV antigen/anti body Nonrea ctive nonrea ctive HIV-1 antig en and HIV-1 /HIV- 2 antib odies were not detec sanjuana. No labor atory evide nce of HIV infec tion. Not Available [facility] (Lab) [address] [facility] [place], [address], 03/03/2025 12:36:54 03/02/2003/02/2025 HEPAT ITIS C ANTIB [...] used inter fonseca eably . Not Available [facility] (Lab) [address], [place], [address], 03/03/2025 12:36:54 03/02/2003/02/2025 TYPE/ RH/SC REEN ABO/Rh type A POS Not Available [facility] (Lab) [address], [place], [address], 03/03/2025 12:36:55 03/02/20 25 03/02/2025 TYPE/ RH/SC REEN antibody screen NEG Not Available [facility] (Lab) [address], [place], [address], 03/03/2025 12:36:55 03/02/2003/02/2025 TYPE/ RH/SC REEN exp date 2024 23:59 Not Available [facility] (Lab) [address], [place], [address], 03/03/2025 12:36:55 03/02/2003/02/2025 RUBEL LA IGG ANTIB ANN, QUANT rubella antibodies, IgG Reacti ve reacti ve Not Available [facility] (Lab) [address], [place], [address], 03/03/2025 12:36:55 10/03/02/2025 RUBEL LA IGG ANTIB ANN, QUANT rubella antibodies, IgG quant 33.3 IU/mL >=10 Non-r eacti ve (Non- Immun e) <10 IU/mL React chris (Immu ne) > or = 10 IU/mL Not Available [facility] (Lab) [address], [place], [address], 03/03/2025 12:36:55 03/02/2003/02/2025 HEMOG LOBIN A1C hemoglobin A1C 6.1 % 4.0-5. 6 high The Ameri can [employer] arnel [employer] iatio n recom mends that a prima ry goal of thera py patricia d be a HBA1C of < 7% and that physi cians shoul d reeva luate the treat ment regim en in patie nts with HBA1C value s consi stent ly > 8%. <5.7% Yamile l 5.7 - 6.4% Incre ased risk for diabe arnel >=6.5 % Diagn ostic of diabe arnel <7.0% Goal of thera py >8.0% Actio n sugge sted Not Available [facility] (Lab) [address], [place], [address], 03/03/2025 12:36:55 03/02/20 25 03/02/2025 RPR SCREE N, REFLE X TITER /CONF IRMAT ION RPR qualitative Nonrea ctive nonrea ctive Not Available [facility] (Lab) [address] , [place], [address], 03/03/2025 12:36:56 03/08/20 25 03/08/2025 GTT - GESTA MIGUEL ÁNGEL L, 3 HOUR, ACOG glucose, fasting acog 83 mg/dL 70-94 Not Available [facility] (Lab) [address] , [place], [address], 03/09/2025 07:22:26 03/08/20 25 03/08/2025 GTT - GESTA MIGUEL ÁNGEL L, 3 HOUR, ACOG glucose, 1 hour acog 167 mg/dL 70-179 Not Available [facility] (Lab) [address], [place], [address], 03/09/2025 07:22:26 03/08/20 25 03/08/2025 GTT - GESTA MIGUEL ÁNGEL L, 3 HOUR, ACOG glucose, 2 hour acog 186 mg/dL 70-154 high Not Available [facility] (Lab) [address], [place], [address], 03/09/2025 07:22:26 03/08/20 25 03/08/2025 GTT - GESTA MIGUEL ÁNGEL L, 3 HOUR, ACOG glucose, 3 hour acog 173 mg/dL 70-139 high Not Available [facility] (Lab) [address], [place], [address], 03/09/2025 07:22:26 03/30/20 25 03/30/2025 WOMEN 'S HEALT H SWAB PLUS, KEVON bacterial vaginosis (bv), tma Negati ve negati ve Not Available [facility] (Lab) [address] [place], [address], 04/01/2025 15:13:33 03/30/20 25 03/30/2025 WOMEN 'S HEALT H SWAB PLUS, KEVON bro species, tma Positi ve negati ve abnormal Not Available [facility] (Lab) [address] [place], [address], 04/01/2025 15:13:33 03/30/20 25 03/30/2025 WOMEN 'S HEALT H SWAB PLUS, KEVON bro glabrata, tma Negati ve negati ve Not Available [facility] (Lab) [address] [place], [address], 04/01/2025 15:13:33 03/30/20 25 03/30/2025 WOMEN 'S HEALT H SWAB PLUS, KEVON trichomonas vaginalis, tma Positi ve negati ve abnormal Not Available [facility] (Lab) [address] [place], [address], 04/01/2025 15:13:33 03/30/20 25 03/30/2025 WOMEN 'S HEALT H SWAB PLUS, KEVON chlamydia trachomatis, PCR Negati ve negati ve Not Available [facility] (Lab) [address], [place], [address], 04/01/2025 15:13:33 03/30/20 25 03/30/2025 WOMEN 'S [...] rmed using the Trans [employer] ion [employer] snajuana [employer] ficat ion metho d. Tests for Meseret da glabr marley, Trich omona s vagin scarlet, Chlam ydia trach omati s, and Neiss eria gonor rhoea e are also inclu ded in this panel . Not Available [facility] (Lab) [address], [place], [address], 04/01/2025 15:13:33 02/17/2002/16/2025 US, obste tric, follo w-up No observ ation record ed. [email or web address] [place] [address], [place], [address], 02/16/2025 17:56:15 02/17/2002/16/2025 US, obste tric, follo w-up No observ ation record ed. [email or web address] [address], [place], [address], 03/01/2025 12:13:11 03/01/2003/01/2025 US, obste tric, limit ed No observ ation record ed. [email or web address] [address], [place], [address], 03/02/2025 09:56:04 03/01/2003/01/2025 US, obste tric, limit ed No observ ation record ed. [facility] [address], [place], [address], 03/01/2025 16:15:36 03/21/20 25 03/21/2025 US, obste tric, follo w-up No observ ation record ed. [email or web address] [place] [address], [place], [address], 03/21/2025 15:50:40 03/21/2003/21/2025 US, obste tric, follo w-up No observ ation record ed. [email or web address] [address], [place], [address], 03/25/2025 16:14:26 04/04/20 25 04/04/2025 imagi ng/di agnos tic resul t No observ ation record ed. [facility] [address], [place], [address], 04/05/2025 10:52:00 04/12/20 25 04/12/2025 US, obste tric, follo w-up No observ ation record ed. [facility] [address], [place], [address], 04/12/2025 14:17:26 04/12/20 25 04/12/2025 US, obste tric, follo w-up No observ ation record ed. kirby Hendricks [address], [place], [address], 04/15/2025 10:42:08 04/26/20 25 04/26/2025 US, obste tric, follo w-up No observ ation record ed. [address] [facility] [address], [address], 04/26/2025 16:57:52 04/27/20 25 04/26/2025 US, obste tric, follo w-up No observ ation record ed. [address], [address], 04/28/2025 22:03:11 04/30/20 25 04/30/2025 imagi ng/di agnos tic resul t No observ ation record ed. [facility] [address], [place], [address], 05/02/2025 11:12:20 05/03/20 25 05/03/2025 imagi ng/di agnos tic resul t No observ ation record ed. [facility] [address], [address], 05/03/2025 13:20:09 05/03/20 25 05/03/2025 imagi ng/di agnos tic resul t No observ ation record ed. [facility] [address], [place], [address], 05/03/2025 13:24:51 Result Notes None recorded. Problems Name Problem SNOMED Code Status Onset Date Resolution Date Notes Provider Name and Address Organization Details Recorded Time 99015959 Active 2024 DEANA Barrett - [facility] 15:10:19 Uncomplic ated asthma 793317996 Active 2024 albuterol inhlaer prn 2 rounds steroids in plan daily inhaler Vicky Burris, LASHONDA [address], [place], [address], [place] [facility] 17:45:27 Platelet count above reference range 967538473 Active 2024 480 @ 28wks rpt labs Olesya miguel, [facility] 12:16:37 Gestation al diabetes mellitus 15578858 Active 2024 checking bs QID, serial growth us Faxed Referral [facility] for DT 03/09 Olesya miguel, [facility] 12:25:55 Infection by Trichomon as 88498000 Active 2024 Nithya fuentes [facility], [facility] 14:24:54 Infection by Trichomon as 67537082 Active 2024 Nithya fuentes [facility], [facility] 14:24:54 Notes:Some problems listed i n Document: #[id number] could not be added to this patient's chart. Please review this document and add these problems to the patient's chart manually as needed. Problem Notes None recorded. Medical Equipment None Reported. Allergies Allergen ID Allergen Name Allergen Category Reaction Reaction Severity Criticality Documentation Date Start Date Code Code System Note Provider Name and Address Organization Details Recorded Time 51511 banana extract food,medi cation anaphylax is Not available Not available 02/16/2025 26141 9 RxNorm Nikki Wiggins lam[place], [facility] 14:34:13 Medications Name Sig Start Date [...] Sure Comfort Pen Needle 31 gauge x / USE 1 NEEDLE INSTRUCTE D 2 TIMES [...] Address Organization Details Last Updated DateTime 04/12/2025 96604.48716 g 108/72 mm[Hg] Jen Calderon [facility] 04/12/2025 13:03:25 Social History Question Answer Notes LastModified by Organizat ion Details LastModified Time Tobacco Smoking Status Never Smoker Nikki miguel, [facility] 02/16/2025 14:36:54 Do You Have An Advance Directive? No [email or web address] Information n ot available 02/16/2025 How Many Years Have You Consumed Alcohol? 13 [email or web address] Information not available 02/16/2025 Are You Blind Or Do You Have Difficulty Seeing? No [email or web address] Information n ot available 02/16/2025 What Is Your Level Of Caffeine Consumption? Occasional [email or web address] Information not available 02/16/2025 In The 14 Days Before Symptom Onset, Have You Had Close Contact With A Laboratory-confirm ed COVID-19 While That Case Was Ill? No [email or web address] Information n ot available 02/16/2025 In The 14 Days Before Symptom Onset, Have You Had Close Contact With A Person Who Is Under Investigation For COVID-19 While That Person Was Ill? No [email or web address] Information not available 02/16/2025 Have You Been To An Area Known To Be High Risk For COVID-19? No [email or web address] Information not available 02/16/2025 Are You Deaf Or Do You Have Serious Difficulty Hearing? No Information not available 02/16/2025 What Type Of Diet Are You Following? REGULAR [email or web address] Information n ot available 02/16/2025 What Is The Highest Grade Or Level Of School You Have Completed Or The Highest Degree You Have Received? [id number] [email or web address] Information not available 02/16/2025 Are There Any Guns Present In Your Home? No [email or web address] Information not available 02/16/2025 Do You Use Protection During Sex? Always [email or web address] Information not available 02/16/2025 Do You Use Your Seat Belt Or Car Seat Routinely? Yes [email or web address] Information not available 02/16/2025 Are You Sexually Active? Yes Information not available 02/16/2025 Do You Have Smoke And Carbon Monoxide Detectors In Your Home? Yes Information not available 02/16/2025 How Much Tobacco Do You Smoke? No [email or web address] Information not available 02/16/2025 Do You Use Sunscreen Routinely? Yes [email or web address] Information not available 02/16/2025 Has Tobacco Cessation Counseling Been Provided? No [email or web address] Information not available 02/16/2025 Have You Used IV Drugs? No Information not available 02/16/2025 Do You Have Difficulty Walking Or Climbing Stairs? No Information not available 02/16/2025 Sex: Unknown Functional Status Question Answer Note LastModified by Organizat ion Details LastModified Time Do you use any illicit or recreational drugs? No [email or web address] Information not available 02/16/2025 Do you or have you ever used any other forms of tobacco or nicotine? No [email or web address] Information not available 02/16/2025 What is your level of alcohol consumption? None [email or web address] Information not available 02/16/2025 Are you currently employed? Yes [email or web address] Information not available 02/16/2025 Are you able to walk independently without assistance or assistive devices? 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 No Information not available 02/16/2025 What is your exercise level? Moderate [email or web address] Information not available 02/16/2025 Mental Status Question Answer Note LastModified by Organization D etails LastModified Time Do you feel stressed (tense, restless, nervous, or anxious, or unable to sleep at night)? [id number] [email or web address] Information not available 02/16/2025 Family History Relationship Description Onset Age of this Age Resolved Age Notes LastModified by Organization Details LastModified Time Mother Diabetes mellitus [email or web address] Not available 2024 14:34:18 Maternal Aunt Diabetes mellitus [email or web address] Not available 2024 14:34:18 Maternal Grandmother Diabetes mellitus [email or web address] Not available 2024 14:34:18 Medical History Condition [...] ICD10 Code Diagnosis IMO Codes Diagnosis Note [id number] [facility] [address],[place] [address] 03/16/2025 09:31:29 03/16/2025 13:26:40 Gestational diabetes mellitus 89811885 O24.419 [id number] Oracio Yoon MD [place] [address],[place] [address] 03/21/2025 09:09:41 03/21/2025 09:51:13 Gestational diabetes mellitus 79449727 O24.410 Z3A.30 56237706 [id number] Vicky Burris CNM [place] [address],[place] [address] 03/30/2025 17:16:04 04/02/2025 18:15:20 Gestation period, 32 weeks 0988810 Z3A.32 [id number] Acute vaginitis 77874146 N76.0 02620 [id number] Oracio Yoon MD [place] [address],[place] [address] 04/12/2025 12:02:21 04/12/2025 12:52:43 Gestational diabetes mellitus 26717918 O24.410 Z3A.33 27017473 [id number] Vicky Burirs CNM [place] [address],[place] [address] 04/12/2025 12:04:36 04/12/2025 13:58:27 Gestation period, 33 weeks 84906989 Z3A.33 [id number] Gestationa l diabetes mellitus 17683935 O24.415 [id number] Health Concerns Section Related Observation LastModified by [...] Patient Vicky Burris CNM [address], [place], [address], [facility] 04/12/2025 13:58:06 OBGyn Episode Ob Episode Information Episode Created Date Number of Fetuses Patient Bloodtype Patient rh Status Prepregnancy Weight lbs Domestic Partner Domestic Partner Phone Father Name Bag Bundler Status 02/15/20 25 1 OPEN Fetus Data First Name Last Name Admitted to NICU Weight (g) Sex Living Outcome Pediatric Complications Fetus ID Race Codes Race Delivery Type [id number] Problems Problem Notes transfer of care- records re questedfluid high normal will rpt at next visit Problem Name Start Date End Date Resolution Snomed Code Not e Infection by Trichomonas 04/06/2025 99659209 Uncomplicated asthma 02/16/2025 22046338 1 albuterol inhlaer prn2 rounds steroids in pregnancyplan daily inhaler Gestational diabetes mellitus 03/09/2025 94212642 checking bs QID , serial growth usFaxed Referral [facility] for DT 03/09 Platelet count above reference range 03/04/2025 127869867 480 @ 28wks rpt labs Vaibhav Calculation [...] Weight in lbs Pre/Post Dialysis Refused Weight 195.100136324971 BP Diastolic BP Location Tested BP Systolic [...] Type Weight in lbs Pre/Post Dialysis Refused 201.581629780366 BP Diastolic BP Location Tested BP Systolic [...] Weight in lbs Pre/Post Dialysis Refused Weight 200.276312794821 BP Diastolic BP Location Tested BP Systolic BP Type 74 L arm 121 sitting Fetus Heart Rate Present Fetus Movement Comments reviewed blood sugars fastin g ok, meals some elevated, 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 lu, start metformin 500mg BID, ssm consult, not following diet discussed risks including LGA, lung immaturity and demise, pt needs NSTS and BPP will try and schedule at [facility] due to insurance conflict. precautions and education f/u 2 weeks here , or earlier if needs to do her testing here Flowsheet Date 04/26/2025 Vega Score Blood Edema Fundus Height Fundus Units Glucose Ketones Leukocytes Nitrite Labor Signs Protein Cervic Dilation Cervic Effacement Cervic Station Type Weight in lbs Pre/Post Dialysis Refused Weight 204.361440481612 BP Diastolic BP Location Tested BP Systolic [...] Weight in lbs Pre/Post Dialysis Refused Weight 205.558057276388 BP Diastolic BP Location Tested BP Systolic [...]
--- OUTSIDE RECORDS SUMMARY | 2025-05-03 14:18 | XMS_ITS | Continuity of Care Document ---
Author Organization [facility] [place] Address [address] [place] [address] Assessment Encounter Date Assessment Date Assessment LastModified by Organization Details LastModified Time 03/30/2025 03/30/2025 Patient is _32__weeks . Discussed plan. Not available 03/30/2025 18:12:55 Plan of Treatment Reminders Order Date Submit [...] women's health swab plus, KEVON 2024 025 [facility] (Lab), [address], [place], [address], 04/01/2025 15:13:33 Referral None recorde d. Procedures [...] [facility] (Lab) [address], [place], [address], 03/03/2025 12:36:52 03/02/2003/02/2025 CBC W/DIF F WBC 14.2 10'3/ uL 3.5-10 .5 high Not Available [facility] (Lab) [address], [place], [address], 03/03/2025 12:36:52 03/02/20 25 03/02/2025 CBC W/DIF F RBC 4.65 10'6/ uL (based on docume nted legal sex) 3.80-5 .20 Not Available [facility] (Lab) [address], [place], [address], 03/03/2025 12:36:52 03/02/20 25 03/02/2025 CBC W/DIF F HGB 12.7 g/dL (based on docume nted legal sex) 11.6-1 5.4 Not Available [facility] (Lab) [address], [place], [address], 03/03/2025 12:36:52 03/02/20 25 03/02/2025 CBC W/DIF F HCT 36.2 % (based on docume nted legal sex) 34.0-4 5.0 Not Available [facility] (Lab) [address] [place], [address], 03/03/2025 12:36:52 03/02/20 25 03/02/2025 CBC W/DIF F MCV 77.8 fL 80.0-9 9.0 low Not Available [facility] (Lab) [address], [place], [address], 03/03/2025 12:36:52 03/02/20 25 03/02/2025 CBC W/DIF F MCH 27.3 pg 27.0-3 4.0 Not Available [facility] (Lab) [address], [place], [address], 03/03/2025 12:36:52 03/02/20 25 03/02/2025 CBC W/DIF F MCHC 35.1 g/dL 32.0-3 5.5 Not Available [facility] (Lab) [address], [place], [address], 03/03/2025 12:36:52 03/02/20 25 03/02/2025 CBC W/DIF F RDW 15.1 % 11.0-1 5.0 high Not Available [facility] (Lab) [address], [place], [address], 03/03/2025 12:36:52 03/02/20 25 03/02/2025 CBC W/DIF F plt 480 10'3/ uL 150-40 0 high Not Available [facility] (Lab) [address], [place], [address], 03/03/2025 12:36:52 03/02/20 25 03/02/2025 CBC W/DIF F MPV 9.4 fL 8.8-12 .1 Not Available [facility] (Lab) [address], [place], [address], 03/03/2025 12:36:52 03/02/20 25 03/02/2025 CBC W/DIF F NRBC's 0.0 % 0.0 Not Available [facility] (Lab) [address], [place], [address], 03/03/2025 12:36:52 03/02/20 25 03/02/2025 CBC W/DIF F absolute NRBCs 0.0 10'3/ uL no refere nce range establ ished Not Available [facility] (Lab) [address], [place], [address], 03/03/2025 12:36:52 03/02/20 25 03/02/2025 CBC W/DIF F neutrophils 75.4 % 34.0-7 3.0 high Not Available [facility] (Lab) [address], [place], [address], 03/03/2025 12:36:52 03/02/20 25 03/02/2025 CBC W/DIF F lymphocytes 17.1 % 15.0-5 0.0 Not Available [facility] (Lab) [address], [place], [address], 03/03/2025 12:36:52 03/02/20 25 03/02/2025 CBC W/DIF F monocytes 4.7 % 1.0-15 .0 Not Available [facility] (Lab) [address], [place], [address], 03/03/2025 12:36:52 03/02/20 25 03/02/2025 CBC W/DIF F eosinophils 1.4 % 0.0-8. 0 Not Available [facility] (Lab) [address], [place], [address], 03/03/2025 12:36:52 03/02/20 25 03/02/2025 CBC W/DIF F basophils 0.4 % 0.0-2. 0 Not Available [facility] (Lab) [address], [place], [address], 03/03/2025 12:36:52 03/02/20 25 03/02/2025 CBC W/DIF [...] [facility] (Lab) [address], [place], [address], 03/03/2025 12:36:52 03/02/20 25 03/02/2025 CBC W/DIF F absolute neutrophils 10.7 10'3/ uL 1.5-8. 0 high Not Available [facility] (Lab) [address], [place], [address], 03/03/2025 12:36:52 03/02/20 25 03/02/2025 CBC W/DIF F absolute lymphocytes 2.4 10'3/ uL 1.0-4. 0 Not Available [facility] (Lab) [address], [place], [address], 03/03/2025 12:36:52 03/02/20 25 03/02/2025 CBC W/DIF F absolute monocytes 0.7 10'3/ uL 0.2-1. 0 Not Available [facility] (Lab) [address], [place], [address], 03/03/2025 12:36:52 03/02/20 25 03/02/2025 CBC W/DIF F absolute eosinophils 0.2 10'3/ uL 0.0-0. 6 Not Available [facility] (Lab) [address], [place], [address], 03/03/2025 12:36:52 03/02/20 25 03/02/2025 CBC W/DIF F absolute basophils 0.1 10'3/ uL 0.0-0. 3 Not Available [facility] (Lab) [address] [place], [address], 03/03/2025 12:36:52 03/02/20 25 03/02/2025 CBC W/DIF F absolute immature granulocytes 0.1 10'3/ uL 0.00-0 .10 Refer ence range s for nonbi nary/ inter sex or unspe cifie d gende r patie nts have not been estab lishe d. Jacob e refer to the radha sadler table for range s estab lishe d for cisge nder patie nts and evalu ate in the clini matthieu london xt of the indiv idual patie nt: https ://carlos almonte book. nm.or g/gen derx Not Available [facility] (Lab) [address], [place], [address], 03/03/2025 12:36:52 03/02/2003/02/2025 HEMOG LOBIN (HGB) HGB 12.7 g/dL (based on docume nted legal sex) 11.6-1 5.4 Not Available [facility] (Lab) [address], [place], [address], 03/03/2025 12:36:52 03/02/20 25 03/02/2025 GTT - GESTA MIGUEL ÁNGEL L SCREE N, ACOG OB glucose, 1 hour screen 179 mg/dL 70-135 high Not Available [facility] (Lab) [address], [place], [address], 03/03/2025 12:36:53 03/02/2003/02/2025 HEPAT ITIS B SURFA [...] [facility] (Lab) [address], [place], [address], 03/03/2025 12:36:53 03/02/20 25 03/02/2025 HIV 1/2 ANTIG EN/AN TIBOD Y, REFLE X CONFI RMATI ON HIV antigen/anti body Nonrea ctive nonrea ctive HIV-1 antig en and HIV-1 /HIV- 2 antib odies were not detec sanjuana. No labor atory evide nce of HIV infec tion. Not Available [facility] (Lab) [address], [place], [address], 03/03/2025 12:36:54 03/02/2003/02/2025 HEPAT ITIS C ANTIB [...] [facility] (Lab) [address], [place], [address], 03/03/2025 12:36:54 03/02/2003/02/2025 TYPE/ RH/SC REEN ABO/Rh type A POS Not Available [facility] (Lab) [address], [place], [address], 03/03/2025 12:36:55 03/02/2003/02/2025 TYPE/ RH/SC REEN antibody screen NEG Not Available [facility] (Lab) [address], [place], [address], 03/03/2025 12:36:55 03/02/2003/02/2025 TYPE/ RH/SC REEN exp date 2024 23:59 Not Available [facility] (Lab) [address], [place], [address], 03/03/2025 12:36:55 03/02/20 25 03/02/2025 RUBEL LA IGG ANTIB ANN, QUANT rubella antibodies, IgG Reacti ve reacti ve Not Available [facility] (Lab) [address], [place], [address], 03/03/2025 12:36:55 03/02/20 25 03/02/2025 RUBEL LA IGG ANTIB ANN, QUANT rubella antibodies, IgG quant 33.3 IU/mL >=10 Non-r eacti ve (Non- Immun e) <10 IU/mL React chris (Immu ne) > or = 10 IU/mL Not Available [facility] (Lab) [address], [place], [address], 03/03/2025 12:36:55 03/02/2003/02/2025 HEMOG LOBIN A1C hemoglobin A1C 6.1 % 4.0-5. 6 high The [employer]i can [employer] i[employer] n recom mends that a prima ry goal of thera py patricia mc be a HBA1C of < 7% and [...] [facility] (Lab) [address], [place], [address], 03/03/2025 12:36:55 03/02/20 25 03/02/2025 RPR SCREE N, REFLE X TITER /CONF IRMAT ION RPR qualitative Nonrea ctive nonrea ctive Not Available [facility] (Lab) [address], [place], [address], 03/03/2025 12:36:56 03/08/20 25 03/08/2025 GTT - GESTA MIGUEL ÁNGEL L, 3 HOUR, ACOG glucose, fasting acog 83 mg/dL 70-94 Not Available [facility] (Lab) [address] [place], [address], 03/09/2025 07:22:26 03/08/20 25 03/08/2025 GTT - GESTA MIGUEL ÁNGEL L, 3 HOUR, ACOG glucose, 1 hour acog 167 mg/dL 70-179 Not Available [facility] (Lab) [address] [place], [address], 03/09/2025 07:22:26 03/08/20 25 03/08/2025 GTT - GESTA MIGUEL ÁNGEL L, 3 HOUR, ACOG glucose, 2 hour acog 186 mg/dL 70-154 high Not Available [facility] (Lab) [address], [place], [address], 03/09/2025 07:22:26 03/08/20 25 03/08/2025 GTT - GESTA MIGUEL ÁNGEL L, 3 HOUR, ACOG glucose, 3 hour acog 173 mg/dL 70-139 high Not Available [facility] (Lab) [address] [place], [address], 03/09/2025 07:22:26 03/30/20 25 03/30/2025 WOMEN 'S HEALT H SWAB PLUS, KEVON bacterial vaginosis (bv), tma Negati ve negati ve Not Available [facility] (Lab) [address] [place], [address], 04/01/2025 15:13:33 03/30/20 25 03/30/2025 WOMEN 'S HEALT H SWAB PLUS, KEVON bro species, tma Positi ve negati ve abnormal Not Available [facility] (Lab) [address] [place], [address], 04/01/2025 15:13:33 03/30/20 25 03/30/2025 WOMEN 'S HEALT H SWAB PLUS, KEVON bro glabrata, tma Negati ve negati ve Not Available [facility] (Lab) [address] [place], [address], 04/01/2025 15:13:33 03/30/20 25 03/30/2025 WOMEN 'S HEALT H SWAB PLUS, KEVON trichomonas vaginalis, tma Positi ve negati ve abnormal Not Available [facility] (Lab) [address], [place], [address], 04/01/2025 15:13:33 03/30/2003/30/2025 WOMEN 'S HEALT H SWAB PLUS, KEVON chlamydia trachomatis, PCR Negati ve negati ve Not Available [facility] (Lab) [address], [place], [address], 04/01/2025 15:13:33 03/30/2003/30/2025 WOMEN 'S HEALT H [...] ded in this panel . Not Available [facility] (Lab) [address], [place], [address], 04/01/2025 15:13:33 02/17/2002/16/2025 US, obste tric, follo w-up No observ ation record ed. [email or web address] [place] [address], [place], [address], 02/16/2025 17:56:15 02/17/20 25 02/16/2025 US, obste tric, follo w-up No observ ation record ed. [email or web address] [address], [place], [address], 03/01/2025 12:13:11 03/01/20 25 03/01/2025 US, obste tric, limit ed No observ ation record ed. [email or web address] [address], [place], [address], 03/02/2025 09:56:04 03/01/20 25 03/01/2025 US, obste tric, limit ed No observ ation [facility]. [facility] [address], [place], [address], 03/01/2025 16:15:36 03/21/20 25 03/21/2025 US, obste tric, follo w-up No observ ation record ed. [email or web address] [place] [address], [place], [address], 03/21/2025 15:50:40 03/21/20 25 03/21/2025 US, obste tric, follo w-up No observ ation record ed. [email or web address] [address], [place], [address], 03/25/2025 16:14:26 04/04/20 25 04/04/2025 imagi ng/di agnos tic resul t No observ ation record ed. [facility] [address], [place], [address], 04/05/2025 10:52:00 04/12/20 25 04/12/2025 US, obste tric, follo w-up No observ ation [facility] ed. [facility] [address], [place], [address], 04/12/2025 14:17:26 04/12/20 25 04/12/2025 US, obste tric, follo w-up No observ ation record ed. [email or web address] [address], [place], [address], 04/15/2025 10:42:08 04/26/20 25 04/26/2025 US, obste tric, follo w-up No observ ation record ed. [address] [facility] [address], [address], 04/26/2025 16:57:52 04/27/20 25 04/26/2025 US, obste tric, follo w-up No observ ation record ed. [address] [facility] [address], [address], 04/28/2025 22:03:11 04/30/20 25 04/30/2025 imagi ng/di agnos tic resul t No observ ation record ed. [facility] [address], [place], [address], 05/02/2025 11:12:20 05/03/20 25 05/03/2025 imagi ng/di agnos tic resul t No observ ation record ed. [facility] [address], [address], 05/03/2025 13:20:09 05/03/20 25 05/03/2025 imagi ng/di agnos tic resul t No observ ation record ed. [facility] [address], [place], [address], 05/03/2025 13:24:51 Result Notes None recorded. Problems Name Problem SNOMED Code Status Onset Date Resolution Date Notes Provider Name and Address Organization Details Recorded Time 22264514 Active [facility]24 [facility] 15:10:19 Uncomplic ated asthma 616741365 Active 2024 albuterol inhlaer prn 2 rounds steroids in plan daily inhaler Vicky Burris, LASHONDA [address], [place], [address], [facility] 17:45:27 Platelet count above reference range 175841969 Active 2024 480 @ 28wks rpt labs [facility] 12:16:37 Gestation al diabetes mellitus 20082463 Active 2024 checking bs QID, serial growth us Faxed Referral [facility] for DT 03/[address] [facility] 12:25:55 Infection by Trichomon as 07129162 Active [address] [facility] 14:24:54 Infection by Trichomon as 96999532 Active [address] [facility] 14:24:54 Notes:Some problems listed i n Document: #[id number] could not be added to this patient's chart. Please review this document and add these problems to the patient's chart manually as needed. Problem Notes None recorded. Medical Equipment None Reported. Allergies Allergen ID Allergen Name Allergen Category Reaction Reaction Severity Criticality Documentation Date Start Date Code Code System Note Provider Name and Address Organization Details Recorded Time 85395 banana extract food,medi cation anaphylax is Not available Not available 02/16/2025 79656 9 RxNorm [facility] [...] Updated DateTime 03/30/2025 152.4 cm 39.5 kg/m2 06607.66 g 111/74 mm[Hg] SAQIB FISHMAN [facility] 03/30/2025 17:27:07 Social History Question Answer Notes LastModified by Organizat ion Details LastModified Time Tobacco Smoking Status Never Smoker Nikki Wiggins [facility] 02/16/2025 14:36:54 Do You Have An Advance Directive? No [email or web address] Information n ot available 02/16/2025 How Many Years Have You Consumed Alcohol? 13 [email or web address] Information not available 02/16/2025 Are You Blind Or Do You Have Difficulty Seeing? No [email or web address] Information n ot available 02/16/2025 What Is Your Level Of Caffeine Consumption? Occasional [email or web address] Information not available 02/16/2025 In The 14 Days Before Symptom Onset, Have You Had Close Contact With A Laboratory-confirm ed COVID-19 While That Case Was Ill? No [email or web address] Information n ot available 02/16/2025 In The 14 Days Before Symptom Onset, Have You Had Close Contact With A Person Who Is Under Investigation For COVID-19 While That Person Was Ill? No [email or web address] Information not available 02/16/2025 Have You Been To An Area Known To Be High Risk For COVID-19? No [email or web address] Information not available 02/16/2025 Are You Deaf Or Do You Have Serious Difficulty Hearing? No Information not available 02/16/2025 What Type Of Diet Are You Following? REGULAR [email or web address] Information n ot available 02/16/2025 What Is The Highest Grade Or Level Of School You Have Completed Or The Highest Degree You Have Received? [id number] [email or web address] Information not available 02/16/2025 Are There Any Guns Present In Your Home? No Information not available 02/16/2025 Do You Use Protection During Sex? Always Information not available 02/16/2025 Do You Use Your Seat Belt Or Car Seat Routinely? Yes [email or web address] Information not available 02/16/2025 Are You Sexually Active? Yes [email or web address] Information not available 02/16/2025 Do You Have Smoke And Carbon Monoxide Detectors In Your Home? Yes [email or web address] Information not available 02/16/2025 How Much Tobacco Do You Smoke? No [email or web address] Information not available 02/16/2025 Do You Use Sunscreen Routinely? Yes Information not available 02/16/2025 Has Tobacco Cessation Counseling Been Provided? No Information not available 02/16/2025 Have You Used IV Drugs? No Information not available 02/16/2025 Do You Have Difficulty Walking Or Climbing Stairs? No [email or web address] Information not available 02/16/2025 Sex: Unknown Functional Status Question Answer Note LastModified by Organizat ion Details LastModified Time Do you use any illicit or recreational drugs? No Information not available 02/16/2025 Do you or have you ever used any other forms of tobacco or nicotine? No [email or web address] Information not available 02/16/2025 What is your level of alcohol consumption? None [email or web address] Information not available 02/16/2025 Are you currently employed? Yes [email or web address] Information not available 02/16/2025 Are you able to walk independently without assistance or assistive devices? 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 No [email or web address] Information not available 02/16/2025 What is your exercise level? Moderate [email or web address] Information not available 02/16/2025 Mental Status Question Answer Note LastModified by Organization D etails LastModified Time Do you feel stressed (tense, restless, nervous, or anxious, or unable to sleep at night)? [id number] [email or web address] Information not available 02/16/2025 Family History Relationship Description Onset Age of this Age Resolved Age Notes LastModified by Organization Details LastModified Time Mother Diabetes mellitus [email or web address] Not available 2024 14:34:18 Maternal Aunt Diabetes mellitus [email or web address] Not available 2024 14:34:18 Maternal Grandmother Diabetes mellitus [email or web address] Not available 2024 14:34:18 Medical History Condition [...] ICD10 Code Diagnosis IMO Codes Diagnosis Note [id number] Oracio Yoon MD [facility] [address],[place] [address] 03/01/2025 14:44:23 03/01/2025 15:32:30 Obstetric procedure 278265786 Z03.71 Z3A.27 5042460 671900 Vicky Burris [facility] [address],[place] [address] 03/02/2025 09:48:08 03/02/2025 10:27:40 Gestation period, 28 weeks 58673630 Z3A.28 5774591 [id number] [facility] [address],[place] [address] 03/16/2025 09:31:29 03/16/2025 13:26:40 Gestational diabetes mellitus 47828355 O24.419 [id number] Oracio Yoon MD [facility] [address],[place] [address] 03/21/2025 09:09:41 03/21/2025 09:51:13 Gestational diabetes mellitus 76322889 O24.410 Z3A.30 61487790 [id number] Vicky Burris [facility] [address],[place] [address] 03/30/2025 17:16:04 04/02/2025 18:15:20 Gestation period, 32 weeks 9920336 Z3A.32 9390527 Acute vaginitis 80183197 N76.0 34934 Health Concerns Section Related Observation LastModified by Organization Detai ls LastModified Time None Recorded Concern Status LastModified by Organization Details LastModified Time None Recorded Payers Encounter Date Sequence Insurance Name Policy Number Policy Herrera Covered Member ID Herrera Member ID Guarantor Name 03/30/2025 1 [facility] Carolyne Sanchez [id number] Carolyne Sanchez Notes Date Note Type Note Provider Name and Address Organization Details Recorded Time 03/30/2025 text/html Generic HPI TemplateReported by Patient SAQIB [facility] 04/04/2025 09:08:22 OBGyn Episode Ob Episode Information Episode Created Date Number of Fetuses Patient Bloodtype Patient rh Status Prepregnancy Weight lbs Domestic Partner Domestic Partner Phone Father Name Fisher Trammel Net Status 02/15/20 25 1 OPEN Fetus Data First Name Last Name Admitted to NICU Weight (g) Sex Living Outcome Pediatric Complications Fetus ID Race Codes Race Delivery Type [id number] Problems Problem Notes transfer of care- records re questedfluid high normal will rpt at next visit Problem Name Start Date End Date Resolution Snomed Code Not e Infection by Trichomonas 04/06/2025 99003960 Uncomplicated asthma 02/16/2025 75339998 1 albuterol inhlaer prn2 rounds steroids in pregnancyplan daily inhaler Gestational diabetes mellitus 03/09/2025 64516316 checking bs QID , serial growth usFaxed Referral [facility] for DT 03/09 Platelet count above reference range 03/04/2025 176364796 480 @ 28wks rpt labs Vaibhav Calculation [...] Weight in lbs Pre/Post Dialysis Refused Weight 195.623094598349 BP Diastolic BP Location Tested BP Systolic [...] Type Weight in lbs Pre/Post Dialysis Refused 201.870819425237 BP Diastolic BP Location Tested BP Systolic [...] Weight in lbs Pre/Post Dialysis Refused Weight 200.720322099212 BP Diastolic BP Location Tested BP Systolic BP Type 74 L arm 121 sitting Fetus Heart Rate Present Fetus Movement Comments reviewed blood sugars fastin g ok, meals some elevated, unable to get legal instruments examiner due to insurance, diabetes handout given, reviewed [...] Weight in lbs Pre/Post Dialysis Refused Weight 202.957969264060 BP Diastolic BP Location Tested BP Systolic [...] Type Weight in lbs Pre/Post Dialysis Refused 203.79908021365 BP Diastolic BP Location Tested BP Systolic BP Type 72 L arm 108 sitting Fetus Heart Rate Present Fetus Movement A Yes Comments unable to get insulin due to insurance, disc with dr. lu, start metformin 500mg BID, ssm consult, not following diet discussed risks including LGA, lung immaturity and demise, pt needs NSTS and BPP will try and schedule at [facility] due to insurance conflict. precautions and education f/u 2 weeks here , or earlier if needs to do her testing here Flowsheet Date 04/26/2025 Vega Score Blood Edema Fundus Height Fundus Units Glucose Ketones Leukocytes Nitrite Labor Signs Protein Cervic Dilation Cervic Effacement Cervic Station Type Weight in lbs Pre/Post Dialysis Refused Weight 204.531678166818 BP Diastolic BP Location Tested BP Systolic [...] Weight in lbs Pre/Post Dialysis Refused Weight 205.510149904604 BP Diastolic BP Location Tested BP Systolic [...]
--- OUTSIDE RECORDS SUMMARY | 2025-05-03 14:18 | XMS_ITS | Continuity of Care Document ---
Author Organization [facility] Address [address] [place] [address] Assessment No assessment recorded. Plan of Treatment [...] None recorde d. Imaging US, obstetr ic, limited 2024 025 [email or web address] [place], [address], [address], [place], [address], 03/02/2025 18:48:19 Medication Orders None recorde d. Patient TargetsNo targets recorded. Patient InstructionsNo instructions recorded. Reason for Referral None Reported. Results Created Date Observation Date Name Description Value Unit Range Abnormal Flag Note LastModifiedBy Organization Detail LastModifiedTime 02/17/2002/16/2025 US, obste tric, follo w-up No observ ation record ed. [email or web address] [facility] [address], [place], [address], 02/16/2025 17:56:15 02/17/20 25 02/16/2025 US, obste tric, follo w-up No observ ation record ed. [email or web address] [address]ie [address], [place], [address], 03/01/2025 12:13:11 03/01/2003/01/2025 US, obste tric, limit ed No observ ation record ed. [email or web address] Ruthie [address], [place], [address], 03/02/2025 09:56:04 03/01/20 25 03/01/2025 US, obste tric, limit ed No observ ation [facility] ed. [facility] [address], [place], [address], 03/01/2025 16:15:36 03/21/20 25 03/21/2025 US, obste tric, follo w-up No observ ation record ed. [email or web address] [place] [address], [place], [address], 03/21/2025 15:50:40 03/21/20 25 03/21/2025 US, obste tric, follo w-up No observ ation record ed. [email or web address] [place] [address], [place], [address], 03/25/2025 16:14:26 04/04/20 25 04/04/2025 imagi ng/di agnos tic resul t No observ ation record ed. [facility] [address], [place], [address], 04/05/2025 10:52:00 04/12/20 25 04/12/2025 US, obste tric, follo w-up No observ ation record ed. [facility] [address], [place], [address], 04/12/2025 14:17:26 04/12/20 25 04/12/2025 US, obste tric, follo w-up No observ ation record ed. [email or web address] [place] [address], [place], [address], 04/15/2025 10:42:08 04/26/20 25 04/26/2025 US, obste tric, follo w-up No observ ation record ed. [address] [facility] [address], [address], 04/26/2025 16:57:52 04/27/20 25 04/26/2025 US, obste tric, follo w-up No observ ation record ed. [address] [facility] [address], [address], 04/28/2025 22:03:11 04/30/20 25 04/30/2025 imagi ng/di agnos tic resul t No observ ation record ed. [facility] [address], [place], [address], 05/02/2025 11:12:20 05/03/20 25 05/03/2025 imagi ng/di agnos tic resul t No observ ation record ed. [facility] [address], [address], 05/03/2025 13:20:09 05/03/20 25 05/03/2025 imagi ng/di agnos tic resul t No observ ation record ed. [place] [address], [place], [address], 05/03/2025 13:24:51 Result Notes None recorded. Problems Name Problem SNOMED Code Status Onset Date Resolution Date Notes Provider Name and Address Organization Details Recorded Time 94946343 Active 2024 Nikki miguel, [facility] 15:10:19 Uncomplic ated asthma 772376314 Active 2024 albuterol inhlaer prn 2 rounds steroids in plan daily inhaler Vicky Burris, JOSE MANUEL [address], [place], [address], [place] [facility] 17:45:27 Platelet count above reference range 217136750 Active 2024 480 @ 28wks rpt labs Olesya miguel, [facility] 12:16:37 Gestation al diabetes mellitus 08338687 Active 2024 checking bs QID, serial growth us Faxed Referral [facility] for DT 03/09 Olesya miguel, [facility] 12:25:55 Infection by Trichomon as 52491921 Active 2024 Nithya fuentes [facility] 14:24:54 Infection by Trichomon as 39777509 Active 2024 Nithya fuentes [facility], [facility] 14:24:54 Notes:Some problems listed i n Document: #[id number] could not be added to this patient's chart. Please review this document and add these problems to the patient's chart manually as needed. Problem Notes None recorded. Medical Equipment None Reported. Allergies Allergen ID Allergen Name Allergen Category Reaction Reaction Severity Criticality Documentation Date Start Date Code Code System Note Provider Name and Address Organization Details Recorded Time 46547 banana extract food,medi cation anaphylax is Not available Not available 02/16/2025 82139 9 RxNorm Nikki Wiggins [facility] 5 14:34:13 Medications Name [...] Time Tobacco Smoking Status [facility] 02/16/2025 14:36:54 Do You Have An Advance Directive? No Information n ot available 02/16/2025 How Many Years Have You Consumed Alcohol? 13 Information not available 02/16/2025 Are You Blind Or Do You Have Difficulty Seeing? No [email or web address] Information n ot available 02/16/2025 What Is Your Level Of Caffeine Consumption? Occasional [email or web address] Information not available 02/16/2025 In The 14 Days Before Symptom Onset, Have You Had Close Contact With A Laboratory-confirm ed COVID-19 While That Case Was Ill? No [email or web address] Information n ot available 02/16/2025 In The 14 Days Before Symptom Onset, Have You Had Close Contact With A Person Who Is Under Investigation For COVID-19 While That Person Was Ill? No [email or web address] Information not available 02/16/2025 Have You Been To An Area Known To Be High Risk For COVID-19? No [email or web address] Information not available 02/16/2025 Are You Deaf Or Do You Have Serious Difficulty Hearing? No [email or web address] Information not available 02/16/2025 What Type Of Diet Are You Following? REGULAR [email or web address] Information n ot available 02/16/2025 What Is The Highest Grade Or Level Of School You Have Completed Or The Highest Degree You Have Received? OL90016-1 [email or web address] Information not available 02/16/2025 Are There Any Guns Present In Your Home? No Information not available 02/16/2025 Do You Use Protection During Sex? Always Information not available 02/16/2025 Do You Use Your Seat Belt Or Car Seat Routinely? Yes [email or web address] Information not available 02/16/2025 Are You Sexually Active? Yes [email or web address] Information not available 02/16/2025 Do You Have Smoke And Carbon Monoxide Detectors In Your Home? Yes [email or web address] Information not available 02/16/2025 How Much Tobacco Do You Smoke? No [email or web address] Information not available 02/16/2025 Do You Use Sunscreen Routinely? Yes Information not available 02/16/2025 Has Tobacco Cessation Counseling Been Provided? No Information not available 02/16/2025 Have You Used IV Drugs? No [email or web address] Information not available 02/16/2025 Do You Have Difficulty Walking Or Climbing Stairs? No Information not available 02/16/2025 Sex: Unknown Functional Status Question Answer Note LastModified by Organizat ion Details LastModified Time Do you use any illicit or recreational drugs? No Information not available 02/16/2025 Do you or have you ever used any other forms of tobacco or nicotine? No [email or web address] Information not available 02/16/2025 What is your level of alcohol consumption? None [email or web address] Information not available 02/16/2025 Are you currently employed? Yes [email or web address] Information not available 02/16/2025 Are you able to walk independently without assistance or assistive devices? 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 No [email or web address] Information not available 02/16/2025 What is your exercise level? Moderate [email or web address] Information not available 02/16/2025 Mental Status Question Answer Note LastModified by Organization D etails LastModified Time Do you feel stressed (tense, restless, nervous, or anxious, or unable to sleep at night)? [email or web address] Information not available 02/16/2025 Family History Relationship Description Onset Age of this Age Resolved Age Notes LastModified by Organization Details LastModified Time Mother Diabetes mellitus [email or web address] Not available 2024 14:34:18 Maternal Aunt Diabetes mellitus [email or web address] Not available 2024 14:34:18 Maternal Grandmother Diabetes mellitus [email or web address] Not available 2024 14:34:18 Medical History Condition [...] ICD10 Code Diagnosis IMO Codes Diagnosis Note [id number] Vicky Burris CNM [place] [address],[place] [address] 02/16/2025 14:19:20 02/17/2025 09:09:19 Gestation period, 26 weeks 72464473 Z3A.26 7196315 Asthma 846841035 J45.90 9 [id number] Oracio Yoon MD [place] [address],[place] [address] 02/16/2025 15:03:38 02/16/2025 15:58:51 care status 543984848 O36.5920 Z3A.26 742232 [id number] Oracio Yoon MD [place] [address],[place] [address] 03/01/2025 14:44:23 03/01/2025 15:32:30 Obstetric procedure 769333510 Z03.71 Z3A.27 [id number] Health Concerns Section Related Observation LastModified by Organization Detai ls LastModified Time None Recorded Concern Status LastModified by Organization Details LastModified Time None Recorded Payers Encounter Date Sequence Insurance Name Policy Number Policy Herrera Covered Member ID Herrera Member ID Guarantor Name 03/01/2025 1 [facility] Carolyne Sanchez [id number] Carolyne Sanchez OBGyn Episode Ob Episode Information Episode Created Date Number of Fetuses Patient Bloodtype Patient rh Status Prepregnancy Weight lbs Domestic Partner Domestic Partner Phone Father Name Follow Up Clerk Status 02/15/20 25 1 OPEN Fetus Data First Name Last Name Admitted to NICU Weight (g) Sex Living Outcome Pediatric Complications Fetus ID Race Codes Race Delivery Type 20450 Problems Problem Notes transfer of care- records re questedfluid high normal will rpt at next visit Problem Name Start Date End Date Resolution Snomed Code Not e Infection by Trichomonas 04/06/2025 [id number] Uncomplicated asthma 02/16/2025 92175183 1 albuterol inhlaer prn2 rounds steroids in pregnancyplan daily inhaler Gestational diabetes mellitus 03/09/2025 39330368 checking bs QID , serial growth usFaxed Referral [facility] 03/09 Platelet count above reference range 03/04/2025 615282851 480 @ 28wks rpt labs Vaibhav Calculation [...] Weight in lbs Pre/Post Dialysis Refused Weight 195.883710317564 BP Diastolic BP Location Tested BP Systolic [...] Type Weight in lbs Pre/Post Dialysis Refused 201.208909664673 BP Diastolic BP Location Tested BP Systolic [...] Weight in lbs Pre/Post Dialysis Refused Weight 200.088152683755 BP Diastolic BP Location Tested BP Systolic BP Type 74 L arm 121 sitting Fetus Heart Rate Present Fetus Movement Comments reviewed blood sugars fastin g ok, meals some elevated, 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, diabetes handout given, reviewed [...] Weight in lbs Pre/Post Dialysis Refused Weight 202.428584813807 BP Diastolic BP Location Tested BP Systolic [...] Type Weight in lbs Pre/Post Dialysis Refused 203.81758319012 BP Diastolic BP Location Tested BP Systolic [...] Weight in lbs Pre/Post Dialysis Refused Weight 204.474216790899 BP Diastolic BP Location Tested BP Systolic BP Type 78 L arm 116 sitting Fetus Heart Rate Present A 138 Present Fetus Movement A Yes Comments +FM metformin 500mg bid has [facility]t today with nst bpp will also do that next week plan iol 05/17 at 1200, gbs after may 05, education and precautions f/u as scheduled Flowsheet Date 05/03/2025 Vega Score Blood Edema Fundus Height Fundus Units Glucose Ketones Leukocytes Nitrite Labor Signs Protein Cervic Dilation Cervic Effacement Cervic Station 0cm 50% -2 Type Weight in lbs Pre/Post Dialysis Refused Weight 205.724591875800 BP Diastolic BP Location Tested BP Systolic [...]
--- OUTSIDE RECORDS SUMMARY | 2025-05-03 14:18 | XMS_ITS | Continuity of Care Document ---
Author Organization [facility], [place] Address [address] [place] [address] Assessment Encounter Date Assessment Date Assessment LastModified by Organization Details LastModified Time 04/26/2025 04/26/2025 Patient is _35__weeks . Discussed plan. Not available 04/26/2025 10:09:15 Plan of Treatment [...] nted legal sex) 34.0-4 5.0 Not Available [facility] (Lab) [address], [place], [address], 03/03/2025 12:36:52 03/02/2003/02/2025 CBC W/DIF F WBC 14.2 10'3/ uL 3.5-10 .5 high Not Available [facility] (Lab) [address], [place], [address], 03/03/2025 12:36:52 03/02/20 25 03/02/2025 CBC W/DIF F RBC 4.65 10'6/ uL (based on docume nted legal sex) 3.80-5 .20 Not Available [facility] (Lab) [address], [place], [address], 03/03/2025 12:36:52 03/02/20 25 03/02/2025 CBC W/DIF F HGB 12.7 g/dL (based on docume nted legal sex) 11.6-1 5.4 Not Available [facility] (Lab) [address], [place], [address], 03/03/2025 12:36:52 03/02/20 25 03/02/2025 CBC W/DIF F HCT 36.2 % (based on docume nted legal sex) 34.0-4 5.0 Not Available [facility] (Lab) [address], [place], [address], 03/03/2025 12:36:52 03/02/20 25 03/02/2025 CBC W/DIF F MCV 77.8 fL 80.0-9 9.0 low Not Available [facility] (Lab) [address], [place], [address], 03/03/2025 12:36:52 10/29/20 25 03/02/2025 CBC W/DIF F MCH 27.3 pg 27.0-3 4.0 Not Available [facility] (Lab) [address], [place], [address], 03/03/2025 12:36:52 03/02/20 25 03/02/2025 CBC W/DIF F MCHC 35.1 g/dL 32.0-3 5.5 Not Available [facility] (Lab) [address], [place], [address], 03/03/2025 12:36:52 03/02/2003/02/2025 CBC W/DIF F RDW 15.1 % 11.0-1 5.0 high Not Available [facility] (Lab) [address], [place], [address], 03/03/2025 12:36:52 03/02/20 25 03/02/2025 CBC W/DIF F plt 480 10'3/ uL 150-40 0 high Not Available [facility] (Lab) [address], [place], [address], 03/03/2025 12:36:52 03/02/20 25 03/02/2025 CBC W/DIF F MPV 9.4 fL 8.8-12 .1 Not Available [facility] (Lab) [address], [place], [address], 03/03/2025 12:36:52 03/02/20 25 03/02/2025 CBC W/DIF F NRBC's 0.0 % 0.0 Not Available [facility] (Lab) [address], [place], [address], 03/03/2025 12:36:52 03/02/20 25 03/02/2025 CBC W/DIF F absolute NRBCs 0.0 10'3/ uL no refere nce range establ ished Not Available [facility] (Lab) [address], [place], [address], 03/03/2025 12:36:52 03/02/20 25 03/02/2025 CBC W/DIF F neutrophils 75.4 % 34.0-7 3.0 high Not Available [facility] (Lab) [address], [place], [address], 03/03/2025 12:36:52 03/02/20 25 03/02/2025 CBC W/DIF F lymphocytes 17.1 % 15.0-5 0.0 Not Available [facility] (Lab) [address], [place], [address], 03/03/2025 12:36:52 03/02/20 25 03/02/2025 CBC W/DIF F monocytes 4.7 % 1.0-15 .0 Not Available [facility] (Lab) [address] [place], [address], 03/03/2025 12:36:52 03/02/20 25 03/02/2025 CBC W/DIF F eosinophils 1.4 % 0.0-8. 0 Not Available [facility] (Lab) [address], [place], [address], 03/03/2025 12:36:52 03/02/20 25 03/02/2025 CBC W/DIF F basophils 0.4 % 0.0-2. 0 Not Available [facility] (Lab) [address], [place], [address], 03/03/2025 12:36:52 03/02/20 25 03/02/2025 CBC W/DIF [...] separ ately if prese nt. Not Available [facility] (Lab) [address], [place], [address], 03/03/2025 12:36:52 03/02/20 25 03/02/2025 CBC W/DIF F absolute neutrophils 10.7 10'3/ uL 1.5-8. 0 high Not Available [facility] (Lab) [address], [place], [address], 03/03/2025 12:36:52 03/02/20 25 03/02/2025 CBC W/DIF F absolute lymphocytes 2.4 10'3/ uL 1.0-4. 0 Not Available [facility] (Lab) [address], [place], [address], 03/03/2025 12:36:52 03/02/20 25 03/02/2025 CBC W/DIF F absolute monocytes 0.7 10'3/ uL 0.2-1. 0 Not Available [facility] (Lab) [address], [place], [address], 03/03/2025 12:36:52 03/02/20 25 03/02/2025 CBC W/DIF F absolute eosinophils 0.2 10'3/ uL 0.0-0. 6 Not Available [facility] (Lab) [address], [place], [address], 03/03/2025 12:36:52 03/02/20 25 03/02/2025 CBC W/DIF F absolute basophils 0.1 10'3/ uL 0.0-0. 3 Not Available [facility] (Lab) [address], [place], [address], 03/03/2025 12:36:52 03/02/20 25 03/02/2025 CBC W/DIF [...] almonte book. nm.or g/gen derx Not Available [facility] (Lab) [address], [place], [address], 03/03/2025 12:36:52 03/02/2003/02/2025 HEMOG LOBIN (HGB) HGB 12.7 g/dL (based on docume nted legal sex) 11.6-1 5.4 Not Available [facility] (Lab) [address], [place], [address], 03/03/2025 12:36:52 03/02/20 25 03/02/2025 GTT - GESTA MIGUEL ÁNGEL L SCREE N, ACOG OB glucose, 1 hour screen 179 mg/dL 70-135 high Not Available [facility] (Lab) [address], [place], [address], 03/03/2025 12:36:53 03/02/2003/02/2025 HEPAT ITIS B SURFA CE ANTIG EN hepatitis B surface antigen Non-re active non-re active The test metho d is elect deandre mil inesc ence immun oassa y perfo rmed on the Deandre Stan e801. Value s obtai pauline with diffe rent assay metho ds by other labor atori es canno t be used inter fonseca eably . Not Available [facility] (Lab) [address], [place], [address], 03/03/2025 12:36:53 03/02/2003/02/2025 HIV 1/2 ANTIG EN/AN TIBOD Y, REFLE X CONFI RMATI ON HIV antigen/anti body Nonrea ctive nonrea ctive HIV-1 antig en and HIV-1 /HIV- 2 antib odies were not detec sanjuana. No labor atory evide nce of HIV infec tion. Not Available [facility] (Lab) [address], [place], [address], 03/03/2025 12:36:54 03/02/2003/02/2025 HEPAT ITIS C ANTIB [...] used inter fonseca eably . Not Available [facility] (Lab) [address], [place], [address], 03/03/2025 12:36:54 03/02/2003/02/2025 TYPE/ RH/SC REEN ABO/Rh type A POS Not Available [facility] (Lab) [address], [place], [address], 03/03/2025 12:36:55 03/02/20 25 03/02/2025 TYPE/ RH/SC REEN antibody screen NEG Not Available [facility] (Lab) [address], [place], [address], 03/03/2025 12:36:55 03/02/2003/02/2025 TYPE/ RH/SC REEN exp date 2024 23:59 Not Available [facility] (Lab) [address], [place], [address], 03/03/2025 12:36:55 03/02/2003/02/2025 RUBEL LA IGG ANTIB ANN, QUANT rubella antibodies, IgG Reacti ve reacti ve Not Available [facility] (Lab) [address], [place], [address], 03/03/2025 12:36:55 10/29/03/02/2025 RUBEL LA IGG ANTIB ANN, QUANT rubella antibodies, IgG quant 33.3 IU/mL >=10 Non-r eacti ve (Non- Immun e) <10 IU/mL React chris (Immu ne) > or = 10 IU/mL Not Available [facility] (Lab) [address], [place], [address], 03/03/2025 12:36:55 03/02/2003/02/2025 HEMOG LOBIN A1C hemoglobin [...] >8.0% Actio n sugge sted Not Available [facility] (Lab) [address], [place], [address], 03/03/2025 12:36:55 03/02/20 25 03/02/2025 RPR SCREE N, REFLE X TITER /CONF IRMAT ION RPR qualitative Nonrea ctive nonrea ctive Not Available [facility] (Lab) [address], [place], [address], 03/03/2025 12:36:56 03/08/20 25 03/08/2025 GTT - GESTA MIGUEL ÁNGEL L, 3 HOUR, ACOG glucose, fasting acog 83 mg/dL 70-94 Not Available [facility] (Lab) [address], [place], [address], 03/09/2025 07:22:26 03/08/20 25 03/08/2025 GTT - GESTA MIGUEL ÁNGEL L, 3 HOUR, ACOG glucose, 1 hour acog 167 mg/dL 70-179 Not Available [facility] (Lab) [address], [place], [address], 03/09/2025 07:22:26 03/08/20 25 03/08/2025 GTT - GESTA MIGUEL ÁNGEL L, 3 HOUR, ACOG glucose, 2 hour acog 186 mg/dL 70-154 high Not Available [facility] (Lab) [address], [place], [address], 03/09/2025 07:22:26 03/08/20 25 03/08/2025 GTT - GESTA MIGUEL ÁNGEL L, 3 HOUR, ACOG glucose, 3 hour acog 173 mg/dL 70-139 high Not Available [facility] (Lab) [address], [place], [address], 03/09/2025 07:22:26 03/30/20 25 03/30/2025 WOMEN 'S HEALT H SWAB PLUS, KEVON bacterial vaginosis (bv), tma Negati ve negati ve Not Available [facility] (Lab) [address] [place], [address], 04/01/2025 15:13:33 03/30/20 25 03/30/2025 WOMEN 'S HEALT H SWAB PLUS, KEVON bro species, tma Positi ve negati ve abnormal Not Available [facility] (Lab) [address] [place], [address], 04/01/2025 15:13:33 03/30/20 25 03/30/2025 WOMEN 'S HEALT H SWAB PLUS, KEVON bro glabrata, tma Negati ve negati ve Not Available [facility] (Lab) [address] [place], [address], 04/01/2025 15:13:33 03/30/20 25 03/30/2025 WOMEN 'S HEALT H SWAB PLUS, KEVON trichomonas vaginalis, tma Positi ve negati ve abnormal Not Available [facility] (Lab) [address] [place], [address], 04/01/2025 15:13:33 03/30/20 25 03/30/2025 WOMEN 'S HEALT H SWAB PLUS, KEVON chlamydia trachomatis, PCR Negati ve negati ve Not Available [facility] (Lab) [address], [place], [address], 04/01/2025 15:13:33 03/30/20 25 03/30/2025 WOMEN 'S [...] ded in this panel . Not Available [facility] (Lab) [address], [place], [address], 04/01/2025 15:13:33 02/17/2002/16/2025 US, obste tric, follo w-up No observ ation record ed. [email or web address] [place] [address], [place], [address], 02/16/2025 17:56:15 02/17/2002/16/2025 US, obste tric, follo w-up No observ ation record ed. [email or web address] [address], [place], [address], 03/01/2025 12:13:11 03/01/2003/01/2025 US, obste tric, limit ed No observ ation record ed. [email or web address] [address], [place], [address], 03/02/2025 09:56:04 03/01/2003/01/2025 US, obste tric, limit ed No observ ation record ed. [place] [address], [place], [address], 03/01/2025 16:15:36 03/21/20 25 03/21/2025 US, obste tric, follo w-up No observ ation record ed. [email or web address] [place] [address], [place], [address], 03/21/2025 15:50:40 03/21/20 25 03/21/2025 US, obste tric, follo w-up No observ ation record ed. [email or web address] [address], [place], [address], 03/25/2025 16:14:26 04/04/20 25 04/04/2025 imagi ng/di agnos tic resul t No observ ation record ed. [facility] [address], [place], [address], 04/05/2025 10:52:00 04/12/20 25 04/12/2025 US, obste tric, follo w-up No observ ation record ed. [place] [address], [place], [address], 04/12/2025 14:17:26 04/12/20 25 04/12/2025 US, obste tric, follo w-up No observ ation record ed. [email or web address] [facility] [address], [place], [address], 04/15/2025 10:42:08 04/26/20 25 04/26/2025 US, obste tric, follo w-up No observ ation record ed. [address] [facility] [address], [address], 04/26/2025 16:57:52 04/27/2004/26/2025 US, obste tric, follo w-up No observ ation record ed. [address], [address], 04/28/2025 22:03:11 04/30/20 25 04/30/2025 imagi ng/di agnos tic resul t No observ ation record ed. [facility] [address], [place], [address], 05/02/2025 11:12:20 05/03/20 25 05/03/2025 imagi ng/di agnos tic resul t No observ ation record ed. [facility] [address], [address], 05/03/2025 13:20:09 05/03/20 25 05/03/2025 imagi ng/di agnos tic resul t No observ ation record ed. [facility] [address], [place], [address], 05/03/2025 13:24:51 Result Notes None recorded. Problems Name Problem SNOMED Code Status Onset Date Resolution Date Notes Provider Name and Address Organization Details Recorded Time 02336033 Active 2024 DEANA Barrett - [facility] 15:10:19 Uncomplic ated asthma 882874871 Active 2024 albuterol inhlaer prn 2 rounds steroids in plan daily inhaler Vicky Burris, LASHONDA [address], [place], [address], [place] [facility] 17:45:27 Platelet count above reference range 681842657 Active 2024 480 @ 28wks rpt labs Olesya miguel, [facility] 12:16:37 Gestation al diabetes mellitus 55152764 Active 2024 checking bs QID, serial growth us Faxed Referral [facility] for DT 03/09 Olesya miguel, [facility] 12:25:55 Infection by Trichomon as 75551600 Active 2024 Nithya fuentes [facility], [facility] 14:24:54 Infection by Trichomon as 50079461 Active 2024 Nithya fuentes [facility], [facility] 14:24:54 Notes:Some problems listed i n Document: #[id number] could not be added to this patient's chart. Please review this document and add these problems to the patient's chart manually as needed. Problem Notes None recorded. Medical Equipment None Reported. Allergies Allergen ID Allergen Name Allergen Category Reaction Reaction Severity Criticality Documentation Date Start Date Code Code System Note Provider Name and Address Organization Details Recorded Time 10041 banana extract food,medi cation anaphylax is Not available Not available 02/16/2025 02021 9 RxNorm Nikki Corcoranisac miguel, [facility] 14:34:13 Medications Name Sig [...] Updated DateTime 04/26/2025 152.4 cm 39.8 kg/m2 55529.84 g 116/78 mm[Hg] Delores Cantu [facility] 04/26/2025 09:57:00 Social History Question Answer Notes LastModified by Organizat ion Details LastModified Time Tobacco Smoking Status Never Smoker Nikki miguel, [facility] 02/16/2025 14:36:54 Do You Have An Advance Directive? No Information n ot available 02/16/2025 How Many Years Have You Consumed Alcohol? 13 [email or web address] Information not available 02/16/2025 Are You Blind [...] COVID-19 While That Person Was Ill? No [email or web address] Information not available 02/16/2025 Have You Been To An Area Known To Be High Risk For COVID-19? No Information not available 02/16/2025 Are You Deaf Or Do You Have Serious Difficulty Hearing? No [email or web address] Information not available 02/16/2025 What Type Of Diet Are You Following? REGULAR Information n ot available 02/16/2025 What Is The Highest Grade Or Level Of School You Have Completed Or The Highest Degree You Have Received? [id number] Information not available 02/16/2025 Are There Any Guns Present In Your Home? No [email or web address] Information not available 02/16/2025 Do You Use Protection During Sex? Always [email or web address] Information not available 02/16/2025 Do You Use Your Seat Belt Or Car Seat Routinely? Yes [email or web address] Information not available 02/16/2025 Are You Sexually Active? Yes Information not available 02/16/2025 Do You Have Smoke And Carbon Monoxide Detectors In Your Home? Yes [email or web address] Information not available 02/16/2025 How Much Tobacco Do You Smoke? No [email or web address] Information not available 02/16/2025 Do You Use Sunscreen Routinely? Yes [email or web address] Information not available 02/16/2025 Has Tobacco Cessation Counseling Been Provided? No [email or web address] Information not available 02/16/2025 Have You Used IV Drugs? No [email or web address] Information not available 02/16/2025 Do You Have Difficulty Walking Or Climbing Stairs? No [email or web address] Information not available 02/16/2025 Sex: Unknown Functional Status Question Answer Note LastModified by Organizat ion Details LastModified Time Do you use any illicit or recreational drugs? No [email or web address] Information not available 02/16/2025 Do you or have you ever used any other forms of tobacco or nicotine? No [email or web address] Information not available 02/16/2025 What is your level of alcohol consumption? None Information not available 02/16/2025 Are you currently employed? Yes [email or web address] Information not available 02/16/2025 Are you able to walk independently without assistance or assistive devices? 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 No Information not available 02/16/2025 What is your exercise level? Moderate [email or web address] Information not available 02/16/2025 Mental Status Question Answer Note LastModified by Organization D etails LastModified Time Do you feel stressed (tense, restless, nervous, or anxious, or unable to sleep at night)? [id number] [email or web address] Information not available 02/16/2025 Family History Relationship Description Onset Age of this Age Resolved Age Notes LastModified by Organization Details LastModified Time Mother Diabetes mellitus [email or web address] Not available 2024 14:34:18 Maternal Aunt Diabetes mellitus [email or web address] Not available 2024 14:34:18 Maternal Grandmother Diabetes [...] ICD10 Code Diagnosis IMO Codes Diagnosis Note [id number] Vicky Burris CNM [place] [address],[place] [address] 03/30/2025 17:16:04 04/02/2025 18:15:20 Gestation period, 32 weeks 7753958 Z3A.32 0473099 Acute vaginitis 37849047 N76.0 40420 435446 Oracio Yoon MD [place] [address],[place] [address] 04/12/2025 12:02:21 04/12/2025 12:52:43 Gestational diabetes mellitus 14770737 O24.410 Z3A.33 89686921 331967 Vicky Burris CNM [place] [address],[place] [address] 04/12/2025 12:04:36 04/12/2025 13:58:27 Gestation period, 33 weeks 14264561 Z3A.33 3949887 Gestationa l diabetes mellitus 89220805 O24.415 69116039 240061 Vicky Burris CNM [place] [address],[place] [address] 04/26/2025 09:48:17 04/26/2025 10:20:04 Gestation period, 35 weeks 75447953 Z3A.35 [id number] Health Concerns Section Related Observation LastModified by Organization Detai ls LastModified Time None Recorded Concern Status LastModified by Organization Details LastModified Time None Recorded Payers Encounter Date Sequence Insurance Name Policy Number Policy Herrera Covered Member ID Herrera Member ID Guarantor Name 04/26/2025 1 *SELF PAY* Luci Sanchez Notes Date Note Type Note Provider Name and Address Organization Details Recorded Time 04/26/2025 text/html Generic HPI TemplateReported by Patient [address], [place], [address], [facility] 04/26/2025 10:09:29 OBGyn Episode Ob Episode Information Episode Created Date Number of Fetuses Patient Bloodtype Patient rh Status Prepregnancy Weight lbs Domestic Partner Domestic Partner Phone Father Name Legal Investigator Status 02/15/20 25 1 OPEN Fetus Data First Name Last Name Admitted to NICU Weight (g) Sex Living Outcome Pediatric Complications Fetus ID Race Codes Race Delivery Type [id number] Problems Problem Notes transfer of care- records re questedfluid high normal will rpt at next visit Problem Name Start Date End Date Resolution Snomed Code Not e Infection by Trichomonas 04/06/2025 05938862 Uncomplicated asthma 02/16/2025 29548859 1 albuterol inhlaer prn2 rounds steroids in pregnancyplan daily inhaler Gestational diabetes mellitus 03/09/2025 28364042 checking bs QID , serial growth usFaxed Referral [facility] for DT 03/09 Platelet count above reference range 03/04/2025 499250919 480 @ 28wks rpt labs Vaibhav Calculation [...] Weight in lbs Pre/Post Dialysis Refused Weight 195.757664345260 BP Diastolic BP Location Tested BP Systolic [...] Type Weight in lbs Pre/Post Dialysis Refused 201.701416718367 BP Diastolic BP Location Tested BP Systolic [...] Weight in lbs Pre/Post Dialysis Refused Weight 200.729791918272 BP Diastolic BP Location Tested BP Systolic BP Type 74 L arm 121 sitting Fetus Heart Rate Present Fetus Movement Comments reviewed blood sugars fastin g ok, meals some elevated, 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 lu, start metformin 500mg BID, ssm consult, not following diet discussed risks including LGA, lung immaturity and demise, pt needs NSTS and BPP [facility]. precautions and education f/u 2 weeks here , or earlier if needs to do her testing here Flowsheet Date 04/26/2025 Vega Score Blood Edema Fundus Height Fundus Units Glucose Ketones Leukocytes Nitrite Labor Signs Protein Cervic Dilation Cervic Effacement Cervic Station Type Weight in lbs Pre/Post Dialysis Refused Weight 204.241560661133 BP Diastolic BP Location Tested BP Systolic [...] Weight in lbs Pre/Post Dialysis Refused Weight 205.745828416822 BP Diastolic BP Location Tested BP Systolic [...]
--- OUTSIDE RECORDS SUMMARY | 2025-05-03 14:18 | XMS_ITS | Continuity of Care Document ---
Author Organization [facility] [place] Address [address] [place] [address] Assessment No assessment recorded. Plan of Treatment [...] Abnormal Flag Note LastModifiedBy Organization Detail LastModifiedTime 03/02/20 25 03/02/2025 HEMAT OCRIT (HCT) HCT 36.2 % (based on docume nted legal sex) 34.0-4 5.0 Not Available [facility] (Lab) [address], [place], [address], 03/03/2025 12:36:52 03/02/20 25 03/02/2025 CBC W/DIF F WBC 14.2 10'3/ uL 3.5-10 .5 high Not Available [facility] (Lab) [address] [facility], [place], [address], 03/03/2025 12:36:52 03/02/20 25 03/02/2025 CBC W/DIF F RBC 4.65 10'6/ uL (based on docume nted legal sex) 3.80-5 .20 Not Available [facility] (Lab) [address], [place], [address], 03/03/2025 12:36:52 03/02/20 25 03/02/2025 CBC W/DIF F HGB 12.7 g/dL (based on docume nted legal sex) 11.6-1 5.4 Not Available [facility] (Lab) [address] [facility], [place], [address], 03/03/2025 12:36:52 03/02/20 25 03/02/2025 CBC W/DIF F HCT 36.2 % (based on docume nted legal sex) 34.0-4 5.0 Not Available [facility] (Lab) [address], [place], [address], 03/03/2025 12:36:52 03/02/20 25 03/02/2025 CBC W/DIF F MCV 77.8 fL 80.0-9 9.0 low Not Available [facility] (Lab) [address] [facility], [place], [address], 03/03/2025 12:36:52 03/02/20 25 03/02/2025 CBC W/DIF F MCH 27.3 pg 27.0-3 4.0 Not Available [facility] (Lab) [address], [place], [address], 03/03/2025 12:36:52 03/02/20 25 03/02/2025 CBC W/DIF F MCHC 35.1 g/dL 32.0-3 5.5 Not Available [facility] (Lab) [address] [facility], [place], [address], 03/03/2025 12:36:52 03/02/20 25 03/02/2025 CBC W/DIF F RDW 15.1 % 11.0-1 5.0 high Not Available [facility] (Lab) [address] [facility], [place], [address], 03/03/2025 12:36:52 03/02/20 25 03/02/2025 CBC W/DIF F plt 480 10'3/ uL 150-40 0 high Not Available [facility] (Lab) [address] [facility], [place], [address], 03/03/2025 12:36:52 03/02/20 25 03/02/2025 CBC W/DIF F MPV 9.4 fL 8.8-12 .1 Not Available [facility] (Lab) [address] [facility], [place], [address], 03/03/2025 12:36:52 03/02/20 25 03/02/2025 CBC W/DIF F NRBC's 0.0 % 0.0 Not Available [facility] (Lab) [address] [facility], [place], [address], 03/03/2025 12:36:52 03/02/20 25 03/02/2025 CBC W/DIF F absolute NRBCs 0.0 10'3/ uL no refere nce range establ ished Not Available [facility] (Lab) [address] [facility], [place], [address], 03/03/2025 12:36:52 03/02/20 25 03/02/2025 CBC W/DIF F neutrophils 75.4 % 34.0-7 3.0 high Not Available [facility] (Lab) [address] [facility], [place], [address], 03/03/2025 12:36:52 03/02/20 25 03/02/2025 CBC W/DIF F lymphocytes 17.1 % 15.0-5 0.0 Not Available [facility] (Lab) [address] [facility], [place], [address], 03/03/2025 12:36:52 03/02/20 25 03/02/2025 CBC W/DIF F monocytes 4.7 % 1.0-15 .0 Not Available [facility] (Lab) [address] [facility], [place], [address], 03/03/2025 12:36:52 03/02/20 25 03/02/2025 CBC W/DIF F eosinophils 1.4 % 0.0-8. 0 Not Available [facility] (Lab) [address] [facility], [place], [address], 03/03/2025 12:36:52 03/02/20 25 03/02/2025 CBC W/DIF F basophils 0.4 % 0.0-2. 0 Not Available [facility] (Lab) [address] [facility], [place], [address], 03/03/2025 12:36:52 03/02/20 25 03/02/2025 CBC W/DIF [...] separ ately if prese nt. Not Available [facility] (Lab) [address] [facility], [place], [address], 03/03/2025 12:36:52 03/02/20 25 03/02/2025 CBC W/DIF F absolute neutrophils 10.7 10'3/ uL 1.5-8. 0 high Not Available [facility] (Lab) [address] [facility], [place], [address], 03/03/2025 12:36:52 03/02/20 25 03/02/2025 CBC W/DIF F absolute lymphocytes 2.4 10'3/ uL 1.0-4. 0 Not Available [facility] (Lab) [address] [facility], [place], [address], 03/03/2025 12:36:52 03/02/20 25 03/02/2025 CBC W/DIF F absolute monocytes 0.7 10'3/ uL 0.2-1. 0 Not Available [facility] (Lab) [address] [facility], [place], [address], 03/03/2025 12:36:52 03/02/20 25 03/02/2025 CBC W/DIF F absolute eosinophils 0.2 10'3/ uL 0.0-0. 6 Not Available [facility] (Lab) [address] [facility], [place], [address], 03/03/2025 12:36:52 03/02/20 25 03/02/2025 CBC W/DIF F absolute basophils 0.1 10'3/ uL 0.0-0. 3 Not Available [facility] (Lab) [address] [place], [address], 03/03/2025 12:36:52 03/02/20 25 03/02/2025 CBC W/DIF F absolute immature granulocytes 0.1 10'3/ uL 0.00-0 .10 Refer ence range s for nonbi nary/ inter sex or unspe cifie d gende r patie nts have not been estab lishe d. Pleas e [facility] for range s estab lishe d for cisge nder patie nts and evalu ate in the clini [place]ieu [place] xt of the indiv idual patie nt: https ://carlos almonte book. nm.or g/gen derx Not Available [facility] (Lab) [address] [facility], [place], [address], 03/03/2025 12:36:52 03/02/2003/02/2025 HEMOG LOBIN (HGB) HGB 12.7 g/dL (based on docume nted legal sex) 11.6-1 5.4 Not Available [facility] (Lab) [address] [facility], [place], [address], 03/03/2025 12:36:52 03/02/20 25 03/02/2025 GTT - GESTA MIGUEL ÁNGEL L SCREE N, ACOG OB glucose, 1 hour screen 179 mg/dL 70-135 high Not Available [facility] (Lab) [address] [facility], [place], [address], 03/03/2025 12:36:53 03/02/2003/02/2025 HEPAT ITIS B SURFA CE ANTIG EN hepatitis B surface antigen Non-re active non-re active The test metho d is elect deandre milum inesc ence immun oassa y perfo rmed on the Deandre Stan e801. Value s obtai pauline with diffe rent assay metho ds by other labor atori es canno t be used inter fonseca eably . Not Available [facility] (Lab) [address] [facility], [place], [address], 03/03/2025 12:36:53 03/02/2003/02/2025 HIV 1/2 ANTIG EN/AN TIBOD Y, REFLE X CONFI RMATI ON HIV antigen/anti body Nonrea ctive nonrea ctive HIV-1 antig en and HIV-1 /HIV- 2 antib odies were not detec sanjuana. No labor atory evide nce of HIV infec tion. Not Available [facility] (Lab) [address] [facility], [place], [address], 03/03/2025 12:36:54 03/02/2003/02/2025 HEPAT ITIS C ANTIB [...] used inter fonseca eably . Not Available [facility] (Lab) [address] [facility], [place], [address], 03/03/2025 12:36:54 03/02/2003/02/2025 TYPE/ RH/SC REEN ABO/Rh type A POS Not Available [facility] (Lab) [address] [facility], [place], [address], 03/03/2025 12:36:55 03/02/2003/02/2025 TYPE/ RH/SC REEN antibody screen NEG Not Available [facility] (Lab) [address] [facility], [place], [address], 03/03/2025 12:36:55 03/02/2003/02/2025 TYPE/ RH/SC REEN exp date 2024 23:59 Not Available [facility] (Lab) [address] [facility], [place], [address], 03/03/2025 12:36:55 03/02/2003/02/2025 RUBEL LA IGG ANTIB ANN, QUANT rubella antibodies, IgG Reacti ve reacti ve Not Available [facility] (Lab) [address] [facility], [place], [address], 03/03/2025 12:36:55 03/02/20 25 03/02/2025 RUBEL LA IGG ANTIB ANN, QUANT rubella antibodies, IgG quant 33.3 IU/mL >=10 Non-r eacti ve (Non- Immun e) <10 IU/mL React chris (Immu ne) > or = 10 IU/mL Not Available [facility] (Lab) [address] [facility], [place], [address], 03/03/2025 12:36:55 03/02/2003/02/2025 HEMOG LOBIN A1C hemoglobin [...] >8.0% Actio n sugge sted Not Available [facility] (Lab) [address] [facility], [place], [address], 03/03/2025 12:36:55 03/02/2003/02/2025 RPR SCREE N, REFLE X TITER /CONF IRMAT ION RPR qualitative Nonrea ctive nonrea ctive Not Available [facility] (Lab) [address] [facility], [place], [address], 03/03/2025 12:36:56 03/08/20 25 03/08/2025 GTT - GESTA MIGUEL ÁNGEL L, 3 HOUR, ACOG glucose, fasting acog 83 mg/dL 70-[address] [facility] (Lab) [address] [facility], [place], [address], 03/09/2025 07:22:26 03/08/20 25 03/08/2025 GTT - GESTA MIGUEL ÁNGEL L, 3 HOUR, ACOG glucose, 1 hour acog 167 mg/dL 70-179 Not Available [facility] (Lab) [address] [place], [address], 03/09/2025 07:22:26 03/08/20 25 03/08/2025 GTT - GESTA MIGUEL ÁNGEL L, 3 HOUR, ACOG glucose, 2 hour acog 186 mg/dL 70-154 high Not Available [facility] (Lab) [address] [facility], [place], [address], 03/09/2025 07:22:26 03/08/20 25 03/08/2025 GTT - GESTA MIGUEL ÁNGEL L, 3 HOUR, ACOG glucose, 3 hour acog 173 mg/dL 70-139 high Not Available [facility] (Lab) [address] [facility], [place], [address], 03/09/2025 07:22:26 03/30/20 25 03/30/2025 WOMEN 'S HEALT H SWAB PLUS, KEVON bacterial vaginosis (bv), tma Negati ve negati ve Not Available [facility] (Lab) [address] [place], [address], 04/01/2025 15:13:33 03/30/20 25 03/30/2025 WOMEN 'S HEALT H SWAB PLUS, KEVON bro species, tma Positi ve negati ve abnormal Not Available [facility] (Lab) [address] [place], [address], 04/01/2025 15:13:33 03/30/20 25 03/30/2025 WOMEN 'S HEALT H SWAB PLUS, KEVON bro glabrata, tma Negati ve negati ve Not Available [facility] (Lab) [address] [place], [address], 04/01/2025 15:13:33 03/30/20 25 03/30/2025 WOMEN 'S HEALT H SWAB PLUS, KEVON trichomonas vaginalis, tma Positi ve negati ve abnormal Not Available [facility] (Lab) [address] [place], [address], 04/01/2025 15:13:33 03/30/20 25 03/30/2025 WOMEN 'S HEALT H SWAB PLUS, KEOVN chlamydia trachomatis, PCR Negati ve negati ve Not Available [facility] (Lab) [address] [facility], [place], [address], 04/01/2025 15:13:33 03/30/2003/30/2025 WOMEN 'S HEALT H [...] ded in this panel . Not Available [facility] (Lab) [address] [facility], [place], [address], 04/01/2025 15:13:33 02/17/2002/16/2025 US, obste tric, follo w-up No observ ation record ed. [email or web address] [place] [address], [place], [address], 02/16/2025 17:56:15 02/17/2002/16/2025 US, obste tric, follo w-up No observ ation record ed. [email or web address] [address], [place], [address], 03/01/2025 12:13:11 03/01/20 25 03/01/2025 US, obste tric, limit ed No observ ation record ed. [email or web address] [address], [place], [address], 03/02/2025 09:56:04 03/01/20 25 03/01/2025 US, obste tric, limit ed No observ ation record ed. [facility] [address], [place], [address], 03/01/2025 16:15:36 03/21/20 25 03/21/2025 US, obste tric, follo w-up No observ ation record ed. [email or web address] [place] [address], [place], [address], 03/21/2025 15:50:40 03/21/20 25 03/21/2025 US, obste tric, follo w-up No observ ation record ed. [email or web address] [address], [place], [address], 03/25/2025 16:14:26 04/04/20 25 04/04/2025 imagi ng/di agnos tic resul t No observ ation record ed. [facility] [address], [place], [address], 04/05/2025 10:52:00 04/12/20 25 04/12/2025 US, obste tric, follo w-up No observ ation record ed. [facility] [address], [place], [address], 04/12/2025 14:17:26 04/12/20 25 04/12/2025 US, obste tric, follo w-up No observ ation record ed. [email or web address] [address], [place], [address], 04/15/2025 10:42:08 04/26/20 25 04/26/2025 US, obste tric, follo w-up No observ ation record ed. [address] [facility] [address] [place], [address], 04/26/2025 16:57:52 04/27/20 25 04/26/2025 US, obste tric, follo w-up No observ ation record ed. [place] [id number] [place], [address], 04/28/2025 22:03:11 04/30/20 25 04/30/2025 imagi ng/di agnos tic resul t No observ ation record ed. [place] [id number], [place], [address], 05/02/2025 11:12:20 05/03/20 25 05/03/2025 imagi ng/di agnos tic resul t No observ ation record ed. [address], [address], 05/03/2025 13:20:09 05/03/20 25 05/03/2025 imagi ng/di agnos tic resul t No observ ation record ed. [facility] [address], [place], [address], 05/03/2025 13:24:51 Result Notes None recorded. Problems Name Problem SNOMED Code Status Onset Date Resolution Date Notes Provider Name and Address Organization Details Recorded Time 97691286 Active 2024 Nikki miguel [place] - [facility] 15:10:19 Uncomplic ated asthma 964089692 Active 2024 albuterol inhlaer prn 2 rounds steroids in plan daily inhaler Vicky Burris CNM [address], [place], [address], [place] [facility] 17:45:27 Platelet count above reference range 356312100 Active 2024 480 @ 28wks rpt labs Olesya miguel, [facility] 12:16:37 Gestation al diabetes mellitus 60580894 Active 2024 checking bs QID, serial growth us Faxed Referral [facility] for DT 03/09 Olesya miguel, [facility] 12:25:55 Infection by Trichomon as 12058156 Active [address] [facility], [facility] 14:24:54 Infection by Trichomon as 58173029 Active [address] [facility], [facility] 14:24:54 Notes:Some problems listed i n Document: #[id number] could not be added to this patient's chart. Please review this document and add these problems to the patient's chart manually as needed. Problem Notes None recorded. Medical Equipment None Reported. Allergies Allergen ID Allergen Name Allergen Category Reaction Reaction Severity Criticality Documentation Date Start Date Code Code System Note Provider Name and Address Organization Details Recorded Time 72202 banana extract food,medi cation anaphylax is Not available Not available 02/16/2025 00869 9 RxNorm Nikki Corcoranisac miguel, [facility] 14:34:13 Medications Name Sig Start [...] Updated DateTime 05/03/2025 152.4 cm 40 kg/m2 61347.44 g 119/80 mm[Hg] SAQIB FISHMAN [facility] 05/03/2025 10:08:51 Social History Question Answer Notes LastModified by Organizat ion Details LastModified Time Tobacco Smoking Status Never Smoker Nikki miguel [facility] 02/16/2025 14:36:54 Do You Have An Advance Directive? No Information n ot available 02/16/2025 How Many Years Have You Consumed Alcohol? 13 [email or web address] Information not available 02/16/2025 Are You Blind Or Do You Have Difficulty Seeing? No Information n ot available 02/16/2025 What Is Your Level Of Caffeine Consumption? Occasional [email or web address] Information not available 02/16/2025 In The 14 Days Before Symptom Onset, Have You Had Close Contact With A Laboratory-confirm ed COVID-19 While That Case Was Ill? No Information n ot available 02/16/2025 In The 14 Days Before Symptom Onset, Have You Had Close Contact With A Person Who Is Under Investigation For COVID-19 While That Person Was Ill? No [email or web address] Information not available 02/16/2025 Have You Been To An Area Known To Be High Risk For COVID-19? No Information not available 02/16/2025 Are You Deaf Or Do You Have Serious Difficulty Hearing? No [email or web address] Information not available 02/16/2025 What Type Of Diet Are You Following? REGULAR [email or web address] Information n ot available 02/16/2025 What Is The Highest Grade Or Level Of School You Have Completed Or The Highest Degree You Have Received? [id number] Information not available 02/16/2025 Are There Any Guns Present In Your Home? No [email or web address] Information not available 02/16/2025 Do You Use Protection During Sex? Always Information not available 02/16/2025 Do You Use Your Seat Belt Or Car Seat Routinely? Yes [email or web address] Information not available 02/16/2025 Are You Sexually Active? Yes [email or web address] Information not available 02/16/2025 Do You Have Smoke And Carbon Monoxide Detectors In Your Home? Yes Information not available 02/16/2025 How Much Tobacco Do You Smoke? No [email or web address] Information not available 02/16/2025 Do You Use Sunscreen Routinely? Yes Information not available 02/16/2025 Has Tobacco Cessation Counseling Been Provided? No Information not available 02/16/2025 Have You Used IV Drugs? No Information not available 02/16/2025 Do You Have Difficulty Walking Or Climbing Stairs? No [email or web address] Information not available 02/16/2025 Sex: Unknown Functional [...] available 02/16/2025 Are you currently employed? Yes [email or web address] Information not available 02/16/2025 Are you able to walk independently without assistance or assistive devices? 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 No Information not available 02/16/2025 What is your exercise level? Moderate [email or web address] Information not available 02/16/2025 Mental Status Question Answer Note LastModified by Organization D etails LastModified Time Do you feel stressed (tense, restless, nervous, or anxious, or unable to sleep at night)? [id number] [email or web address] Information not available 02/16/2025 Family History Relationship Description Onset Age of this Age Resolved Age Notes LastModified by Organization Details LastModified Time Mother Diabetes mellitus [email or web address] Not available 2024 14:34:18 Maternal Aunt Diabetes mellitus [email or web address] Not available 2024 14:34:18 Maternal Grandmother Diabetes mellitus [email or web address] Not available 2024 14:34:18 Medical History Condition [...] ICD10 Code Diagnosis IMO Codes Diagnosis Note [id number] Oracio Yoon MD [place] [address] [address] 04/12/2025 12:02:21 04/12/2025 12:52:43 Gestational diabetes mellitus 12506326 O24.410 Z3A.33 [id number] Vicky Burris [facility] [address],[place] [address] 04/12/2025 12:04:36 04/12/2025 13:58:27 Gestation period, 33 weeks 22637353 Z3A.33 8120488 Gestationa l diabetes mellitus 49143215 O24.415 34528798 530058 Vicky Burris [facility] [address],[place] [address] 04/26/2025 09:48:17 04/26/2025 10:20:04 Gestation period, 35 weeks 78424335 Z3A.35 [id number] [id number] QASIM LU MD [place] [address],[place] [address] 05/03/2025 10:00:16 05/03/2025 10:31:48 Gestational diabetes mellitus 29350422 O24.410 12300127 Gestation period, 36 weeks 51394020 Z3A.36 [id number] Health Concerns Section Related Observation LastModified by Organization Detai ls LastModified Time None Recorded Concern Status LastModified by Organization Details LastModified Time None Recorded Payers Encounter Date Sequence Insurance Name Policy Number Policy Herrera Covered Member ID Herrera Member ID Guarantor Name 05/03/2025 1 *SELF PAY* Re andreina Sanchez Notes Date Note Type Note Provider Name and Address Organization Details Recorded Time 05/03/2025 text/html Generic HPI TemplateReported by Patient QASIM LU MD [address], [place], [address], [facility] 05/03/2025 10:30:35 OBGyn Episode Ob Episode Information Episode Created Date Number of Fetuses Patient Bloodtype Patient rh Status Prepregnancy Weight lbs Domestic Partner Domestic Partner Phone Father Name Hospital Pharmacy Director Status 02/15/20 25 1 OPEN Fetus Data First Name Last Name Admitted to NICU Weight (g) Sex Living Outcome Pediatric Complications Fetus ID Race Codes Race Delivery Type [id number] Problems Problem Notes transfer of care- records re questedfluid high normal will rpt at next visit Problem Name Start Date End Date Resolution Snomed Code Not e Infection by Trichomonas 04/06/2025 00182745 Uncomplicated asthma 02/16/2025 71763405 1 albuterol inhlaer prn2 rounds steroids in pregnancyplan daily inhaler Gestational diabetes mellitus 03/09/2025 57944398 checking bs QID , serial growth usFaxed Referral [facility] for DT 03/09 Platelet count above reference range 03/04/2025 088592626 480 @ 28wks rpt labs Vaibhav Calculation [...] Weight in lbs Pre/Post Dialysis Refused Weight 195.474851866986 BP Diastolic BP Location Tested BP Systolic [...] Type Weight in lbs Pre/Post Dialysis Refused 201.541115998258 BP Diastolic BP Location Tested BP Systolic [...] Weight in lbs Pre/Post Dialysis Refused Weight 200.685719849918 BP Diastolic BP Location Tested BP Systolic BP Type 74 L arm 121 sitting Fetus Heart Rate Present Fetus Movement Comments reviewed blood sugars fastin g ok, meals some elevated, 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 lu, start metformin 500mg BID, ssm consult, not following diet discussed risks including LGA, lung immaturity and demise, pt needs NSTS and BPP will try and schedule at ss due to insurance conflict. precautions and education f/u 2 weeks here , or earlier if needs to do her testing here Flowsheet Date 04/26/2025 Vega Score Blood Edema Fundus Height Fundus Units Glucose Ketones Leukocytes Nitrite Labor Signs Protein Cervic Dilation Cervic Effacement Cervic Station Type Weight in lbs Pre/Post Dialysis Refused Weight 204.166081483232 BP Diastolic BP Location Tested BP Systolic [...] Weight in lbs Pre/Post Dialysis Refused Weight 205.095686611361 BP Diastolic BP Location Tested BP Systolic [...]
--- OUTSIDE RECORDS SUMMARY | 2025-05-03 14:18 | XMS_ITS | Continuity of Care Document ---
Author Organization [facility] [place] Address [address] [place] [address] Assessment Encounter Date Assessment Date Assessment LastModified by Organization Details LastModified Time 03/16/2025 03/16/2025 Patient is _30__weeks . Discussed plan. Not available 03/16/2025 12:56:09 Plan of Treatment Reminders Order Date Submit [...] nted legal sex) 34.0-4 5.0 Not Available [facility] (Lab) [address], [place], [address], 03/03/2025 12:36:52 03/02/2003/02/2025 CBC W/DIF F WBC 14.2 10'3/ uL 3.5-10 .5 high Not Available [facility] (Lab) [address], [place], [address], 03/03/2025 12:36:52 03/02/20 25 03/02/2025 CBC W/DIF F RBC 4.65 10'6/ uL (based on docume nted legal sex) 3.80-5 .20 Not Available [facility] (Lab) [address], [place], [address], 03/03/2025 12:36:52 03/02/20 25 03/02/2025 CBC W/DIF F HGB 12.7 g/dL (based on docume nted legal sex) 11.6-1 5.4 Not Available [facility] (Lab) [address], [place], [address], 03/03/2025 12:36:52 03/02/20 25 03/02/2025 CBC W/DIF F HCT 36.2 % (based on docume nted legal sex) 34.0-4 5.0 Not Available [facility] (Lab) [address], [place], [address], 03/03/2025 12:36:52 03/02/20 25 03/02/2025 CBC W/DIF F MCV 77.8 fL 80.0-9 9.0 low Not Available [facility] (Lab) [address], [place], [address], 03/03/2025 12:36:52 10/29/20 25 03/02/2025 CBC W/DIF F MCH 27.3 pg 27.0-3 4.0 Not Available [facility] (Lab) [address], [place], [address], 03/03/2025 12:36:52 03/02/20 25 03/02/2025 CBC W/DIF F MCHC 35.1 g/dL 32.0-3 5.5 Not Available [facility] (Lab) [address], [place], [address], 03/03/2025 12:36:52 03/02/2003/02/2025 CBC W/DIF F RDW 15.1 % 11.0-1 5.0 high Not Available [facility] (Lab) [address], [place], [address], 03/03/2025 12:36:52 03/02/20 25 03/02/2025 CBC W/DIF F plt 480 10'3/ uL 150-40 0 high Not Available [facility] (Lab) [address], [place], [address], 03/03/2025 12:36:52 03/02/20 25 03/02/2025 CBC W/DIF F MPV 9.4 fL 8.8-12 .1 Not Available [facility] (Lab) [address], [place], [address], 03/03/2025 12:36:52 03/02/20 25 03/02/2025 CBC W/DIF F NRBC's 0.0 % 0.0 Not Available [facility] (Lab) [address], [place], [address], 03/03/2025 12:36:52 03/02/20 25 03/02/2025 CBC W/DIF F absolute NRBCs 0.0 10'3/ uL no refere nce range establ ished Not Available [facility] (Lab) [address], [place], [address], 03/03/2025 12:36:52 03/02/20 25 03/02/2025 CBC W/DIF F neutrophils 75.4 % 34.0-7 3.0 high Not Available [facility] (Lab) [address], [place], [address], 03/03/2025 12:36:52 03/02/20 25 03/02/2025 CBC W/DIF F lymphocytes 17.1 % 15.0-5 0.0 Not Available [facility] (Lab) [address], [place], [address], 03/03/2025 12:36:52 03/02/20 25 03/02/2025 CBC W/DIF F monocytes 4.7 % 1.0-15 .0 Not Available [facility] (Lab) [address] [place], [address], 03/03/2025 12:36:52 03/02/20 25 03/02/2025 CBC W/DIF F eosinophils 1.4 % 0.0-8. 0 Not Available [facility] (Lab) [address], [place], [address], 03/03/2025 12:36:52 03/02/20 25 03/02/2025 CBC W/DIF F basophils 0.4 % 0.0-2. 0 Not Available [facility] (Lab) [address], [place], [address], 03/03/2025 12:36:52 03/02/20 25 03/02/2025 CBC W/DIF [...] separ ately if prese nt. Not Available [facility] (Lab) [address], [place], [address], 03/03/2025 12:36:52 03/02/20 25 03/02/2025 CBC W/DIF F absolute neutrophils 10.7 10'3/ uL 1.5-8. 0 high Not Available [facility] (Lab) [address], [place], [address], 03/03/2025 12:36:52 03/02/20 25 03/02/2025 CBC W/DIF F absolute lymphocytes 2.4 10'3/ uL 1.0-4. 0 Not Available [facility] (Lab) [address], [place], [address], 03/03/2025 12:36:52 03/02/20 25 03/02/2025 CBC W/DIF F absolute monocytes 0.7 10'3/ uL 0.2-1. 0 Not Available [facility] (Lab) [address], [place], [address], 03/03/2025 12:36:52 03/02/20 25 03/02/2025 CBC W/DIF F absolute eosinophils 0.2 10'3/ uL 0.0-0. 6 Not Available [facility] (Lab) [address], [place], [address], 03/03/2025 12:36:52 03/02/20 25 03/02/2025 CBC W/DIF F absolute basophils 0.1 10'3/ uL 0.0-0. 3 Not Available [facility] (Lab) [address], [place], [address], 03/03/2025 12:36:52 03/02/20 25 03/02/2025 CBC W/DIF [...] almonte book. nm.or g/gen derx Not Available [facility] (Lab) [address], [place], [address], 03/03/2025 12:36:52 03/02/2003/02/2025 HEMOG LOBIN (HGB) HGB 12.7 g/dL (based on docume nted legal sex) 11.6-1 5.4 Not Available [facility] (Lab) [address], [place], [address], 03/03/2025 12:36:52 03/02/20 25 03/02/2025 GTT - GESTA MIGUEL ÁNGEL L SCREE N, ACOG OB glucose, 1 hour screen 179 mg/dL 70-135 high Not Available [facility] (Lab) [address], [place], [address], 03/03/2025 12:36:53 03/02/2003/02/2025 HEPAT ITIS B SURFA CE ANTIG EN hepatitis B surface antigen Non-re active non-re active The test metho d is elect deandre mil inesc ence immun oassa y perfo rmed on the Deandre Stan e801. Value s obtai pauline with diffe rent assay metho ds by other labor atori es canno t be used inter fonseca eably . Not Available [facility] (Lab) [address], [place], [address], 03/03/2025 12:36:53 03/02/2003/02/2025 HIV 1/2 ANTIG EN/AN TIBOD Y, REFLE X CONFI RMATI ON HIV antigen/anti body Nonrea ctive nonrea ctive HIV-1 antig en and HIV-1 /HIV- 2 antib odies were not detec sanjuana. No labor atory evide nce of HIV infec tion. Not Available [facility] (Lab) [address], [place], [address], 03/03/2025 12:36:54 03/02/2003/02/2025 HEPAT ITIS C ANTIB [...] used inter fonseca eably . Not Available [facility] (Lab) [address], [place], [address], 03/03/2025 12:36:54 03/02/2003/02/2025 TYPE/ RH/SC REEN ABO/Rh type A POS Not Available [facility] (Lab) [address], [place], [address], 03/03/2025 12:36:55 03/02/20 25 03/02/2025 TYPE/ RH/SC REEN antibody screen NEG Not Available [facility] (Lab) [address], [place], [address], 03/03/2025 12:36:55 03/02/2003/02/2025 TYPE/ RH/SC REEN exp date 2024 23:59 Not Available [facility] (Lab) [address], [place], [address], 03/03/2025 12:36:55 03/02/2003/02/2025 RUBEL LA IGG ANTIB ANN, QUANT rubella antibodies, IgG Reacti ve reacti ve Not Available [facility] (Lab) [address], [place], [address], 03/03/2025 12:36:55 10/29/03/02/2025 RUBEL LA IGG ANTIB ANN, QUANT rubella antibodies, IgG quant 33.3 IU/mL >=10 Non-r eacti ve (Non- Immun e) <10 IU/mL React chris (Immu ne) > or = 10 IU/mL Not Available [facility] (Lab) [address], [place], [address], 03/03/2025 12:36:55 03/02/2003/02/2025 HEMOG LOBIN A1C hemoglobin [...] >8.0% Actio n sugge sted Not Available [facility] (Lab) [address], [place], [address], 03/03/2025 12:36:55 03/02/20 25 03/02/2025 RPR SCREE N, REFLE X TITER /CONF IRMAT ION RPR qualitative Nonrea ctive nonrea ctive Not Available [facility] (Lab) [address], [place], [address], 03/03/2025 12:36:56 03/08/20 25 03/08/2025 GTT - GESTA MIGUEL ÁNGEL L, 3 HOUR, ACOG glucose, fasting acog 83 mg/dL 70-94 Not Available [facility] (Lab) [address], [place], [address], 03/09/2025 07:22:26 03/08/20 25 03/08/2025 GTT - GESTA MIGUEL ÁNGEL L, 3 HOUR, ACOG glucose, 1 hour acog 167 mg/dL 70-179 Not Available [facility] (Lab) [address], [place], [address], 03/09/2025 07:22:26 03/08/20 25 03/08/2025 GTT - GESTA MIGUEL ÁNGEL L, 3 HOUR, ACOG glucose, 2 hour acog 186 mg/dL 70-154 high Not Available [facility] (Lab) [address], [place], [address], 03/09/2025 07:22:26 03/08/20 25 03/08/2025 GTT - GESTA MIGUEL ÁNGEL L, 3 HOUR, ACOG glucose, 3 hour acog 173 mg/dL 70-139 high Not Available [facility] (Lab) [address] [place], [address], 03/09/2025 07:22:26 02/17/20 25 02/16/2025 , obste tric, follo w-up No observ ation record ed. [email or web address] [facility] [address], [place], [address], 02/16/2025 17:56:15 02/17/2002/16/2025 US, obste tric, follo w-up No observ ation record ed. [email or web address] Ruthie [address], [place], [address], 03/01/2025 12:13:11 03/01/2003/01/2025 US, obste tric, limit ed No observ ation record ed. [email or web address] Rutihe [address], [place], [address], 03/02/2025 09:56:04 03/01/20 25 03/01/2025 US, obste tric, limit ed No observ ation record ed. [email or web address] [facility] [address], [place], [address], 03/01/2025 16:15:36 03/21/20 25 03/21/2025 US, obste tric, follo w-up No observ ation record ed. [email or web address] [place] [address], [place], [address], 03/21/2025 15:50:40 03/21/20 25 03/21/2025 US, obste tric, follo w-up No observ ation record ed. Ruthie [address], [place], [address], 03/25/2025 16:14:26 04/04/20 25 04/04/2025 imagi ng/di agnos tic resul t No observ ation record ed. [place] [id number] [facility] [address], [place], [address], 04/05/2025 10:52:00 04/12/20 25 04/12/2025 US, obste tric, follo w-up No observ ation record ed. [email or web address] [address], [place], [address], 04/12/2025 14:17:26 04/12/20 25 04/12/2025 US, obste tric, follo w-up No observ ation record ed. [email or web address] Ruthie [address], [place], [address], 04/15/2025 10:42:08 04/26/20 25 04/26/2025 US, obste tric, follo w-up No observ ation record ed. [email or web address] [facility] [address], [address], 04/26/2025 16:57:52 04/27/20 25 04/26/2025 US, obste tric, follo w-up No observ ation record ed. [email or web address] [facility] [address], [address], 04/28/2025 22:03:11 04/30/20 25 04/30/2025 imagi ng/di agnos tic resul t No observ ation record ed. [facility] [address], [place], [address], 05/02/2025 11:12:20 05/03/20 25 05/03/2025 imagi ng/di agnos tic resul t No observ ation record ed. [facility] [address] [facility], [place], [address], 05/03/2025 13:20:09 05/03/20 25 05/03/2025 imagi ng/di agnos tic resul t No observ ation record ed. [facility] [address] [facility], [place], [address], 05/03/2025 13:24:51 Result Notes None recorded. Problems Name Problem SNOMED Code Status Onset Date Resolution Date Notes Provider Name and Address Organization Details Recorded Time 32833883 Active 2024 Nikki miguel, [facility] 15:10:19 Uncomplic ated asthma 464228343 Active 2024 albuterol inhlaer prn 2 rounds steroids in plan daily inhaler Vicky Burris CNM [address], [place], [address], [place] [facility] 17:45:27 Platelet count above reference range 267782884 Active 2024 480 @ 28wks rpt labs Olesya miguel [facility] 12:16:37 Gestation al diabetes mellitus 04181095 Active 2024 checking bs QID, serial growth us Faxed Referral [facility] for DT 03/09 Olesya miguel [facility] 11/05/202 5 12:25:55 Infection by Trichomon as 21065980 Active 2024 Nithya fuentes [facility], [facility] 5 14:24:54 Infection by Trichomon as 37165624 Active 2024 Nithya fuentes null, [facility] 5 14:24:54 Notes:Some problems listed i n Document: #[id number] could not be added to this patient's chart. Please review this document and add these problems to the patient's chart manually as needed. Problem Notes None recorded. Medical Equipment None Reported. Allergies Allergen ID Allergen Name Allergen Category Reaction Reaction Severity Criticality Documentation Date Start Date Code Code System Note Provider Name and Address Organization Details Recorded Time 98289 banana extract food,medi cation anaphylax is Not available Not available 02/16/2025 14471 9 RxNorm Nikki Wiggins [facility] 14:34:13 Medications Name Sig Start Date [...] Sure Comfort Pen Needle 31 gauge x /16 USE 1 NEEDLE INSTRUCTE D 2 TIMES [...] and Address Organization Details Last Updated DateTime 03/16/2025 152.4 cm 39.1 kg/m2 42288.47 g 121/74 mm[Hg] Jen Calderon [facility] 03/16/2025 09:40:25 Social History Question Answer Notes LastModified by Organizat ion Details LastModified Time Tobacco Smoking Status Never Smoker Nikki miguel, [facility] 02/16/2025 14:36:54 Do You Have An Advance Directive? No [email or web address] Information n ot available 02/16/2025 How Many Years Have You Consumed Alcohol? 13 [email or web address] Information not available 02/16/2025 Are You Blind Or Do You Have Difficulty Seeing? No [email or web address] Information n ot available 02/16/2025 What Is Your Level Of Caffeine Consumption? Occasional [email or web address] Information not available 02/16/2025 In The 14 Days Before Symptom Onset, Have You Had Close Contact With A Laboratory-confirm ed COVID-19 While That Case Was Ill? No [email or web address] Information n ot available 02/16/2025 In The 14 Days Before Symptom Onset, Have You Had Close Contact With A Person Who Is Under Investigation For COVID-19 While That Person Was Ill? No Information not available 02/16/2025 Have You Been To An Area Known To Be High Risk For COVID-19? No [email or web address] Information not available 02/16/2025 Are You Deaf Or Do You Have Serious Difficulty Hearing? No [email or web address] Information not available 02/16/2025 What Type Of Diet Are You Following? REGULAR [email or web address] Information n ot available 02/16/2025 What Is The Highest Grade Or Level Of School You Have Completed Or The Highest Degree You Have Received? [id number] Information not available 02/16/2025 Are There Any Guns Present In Your Home? No [email or web address] Information not available 02/16/2025 Do You Use Protection During Sex? Always [email or web address] Information not available 02/16/2025 Do You Use Your Seat Belt Or Car Seat Routinely? Yes [email or web address] Information not available 02/16/2025 Are You Sexually Active? Yes [email or web address] Information not available 02/16/2025 Do You Have Smoke And Carbon Monoxide Detectors In Your Home? Yes [email or web address] Information not available 02/16/2025 How Much Tobacco Do You Smoke? No [email or web address] Information not available 02/16/2025 Do You Use Sunscreen Routinely? Yes [email or web address] Information not available 02/16/2025 Has Tobacco Cessation Counseling Been Provided? No [email or web address] Information not available 02/16/2025 Have You Used IV Drugs? No [email or web address] Information not available 02/16/2025 Do You Have Difficulty Walking Or Climbing Stairs? No [email or web address] Information not available 02/16/2025 Sex: Unknown Functional Status Question Answer Note LastModified by Organizat ion Details LastModified Time Do you use any illicit or recreational drugs? No [email or web address] Information not available 02/16/2025 Do you or have you ever used any other forms of tobacco or nicotine? No [email or web address] Information not available 02/16/2025 What is your level of alcohol consumption? None Information not available 02/16/2025 Are you currently employed? Yes [email or web address] Information not available 02/16/2025 Are you able to walk independently without assistance or assistive devices? YESWOREST [email or web address] Information not available 02/16/2025 What is your occupation? [employer] [email or web address] Information not available 02/16/2025 Do you have difficulty dressing, bathing, grooming, or toileting? No Information not available 02/16/2025 What is your exercise level? Moderate [email or web address] Information not available 02/16/2025 Mental Status Question Answer Note LastModified by Organization D etails LastModified Time Do you feel stressed (tense, restless, nervous, or anxious, or unable to sleep at night)? [id number] [email or web address] Information not available 02/16/2025 Family History Relationship Description Onset Age of this Age Resolved Age Notes LastModified by Organization Details LastModified Time Mother Diabetes mellitus [email or web address] Not available 2024 14:34:18 Maternal Aunt Diabetes mellitus [email or web address] Not available 2024 14:34:18 Maternal Grandmother Diabetes mellitus [email or web address] Not available 2024 14:34:18 Medical History Condition [...] ICD10 Code Diagnosis IMO Codes Diagnosis Note [id number] Vicky Burris CNM [facility] [address] [place] [address] 02/16/2025 14:19:20 02/17/2025 09:09:19 Gestation period, 26 weeks 18533548 Z3A.26 [id number] Asthma 113468327 J45.90 9 [id number] Oracio Yoon MD [facility] [address] [place] [address] 02/16/2025 15:03:38 02/16/2025 15:58:51 care status [id number] O36.5920 Z3A.26 252264 [id number] Oracio Yoon MD [facility] [address] [address] 03/01/2025 14:44:23 03/01/2025 15:32:30 Obstetric procedure 052834440 Z03.71 Z3A.27 2361077 [id number] Vicky Burris CNM [place] [address] [address] 03/02/2025 09:48:08 03/02/2025 10:27:40 Gestation period, 28 weeks 91320333 Z3A.28 0614630 [id number] Vicky Burris CNM [place] [address],[facility] [place] [place] [address] 03/16/2025 09:31:29 03/16/2025 13:26:40 Gestational diabetes mellitus 80742270 O24.419 [id number] Health Concerns Section Related Observation LastModified by Organization Detai ls LastModified Time None Recorded Concern Status LastModified by Organization Details LastModified Time None Recorded Payers Encounter Date Sequence Insurance Name Policy Number Policy Herrera Covered Member ID Herrera Member ID Guarantor Name 03/16/2025 1 [facility] Carolyne Sanchez [id number] Carolyne Sanchez Notes Date Note Type Note Provider Name and Address Organization Details Recorded Time 03/16/2025 text/html Generic HPI TemplateReported by Patient Vicky Burris CNM [address], [place], [address], [facility] 03/16/2025 12:59:10 OBGyn Episode Ob Episode Information Episode Created Date Number of Fetuses Patient Bloodtype Patient rh Status Prepregnancy Weight lbs Domestic Partner Domestic Partner Phone Father Name Yard Spotter Status 02/15/20 25 1 OPEN Fetus Data First Name Last Name Admitted to NICU Weight (g) Sex Living Outcome Pediatric Complications Fetus ID Race Codes Race Delivery Type [id number] Problems Problem Notes transfer of care- records re questedfluid high normal will rpt at next visit Problem Name Start Date End Date Resolution Snomed Code Not e Infection by Trichomonas 04/06/2025 97337185 Uncomplicated asthma 02/16/2025 63730600 1 albuterol inhlaer prn2 rounds steroids in pregnancyplan daily inhaler Gestational diabetes mellitus 03/09/2025 70339583 checking bs QID , serial growth usFaxed Referral [facility] for DT 03/09 Platelet count above reference range 03/04/2025 023345873 480 @ 28wks rpt labs Vaibhav Calculation [...] Weight in lbs Pre/Post Dialysis Refused Weight 195.734817402579 BP Diastolic BP Location Tested BP Systolic [...] Type Weight in lbs Pre/Post Dialysis Refused 201.671468305591 BP Diastolic BP Location Tested BP Systolic [...] Weight in lbs Pre/Post Dialysis Refused Weight 200.158523012227 BP Diastolic BP Location Tested BP Systolic BP Type 74 L arm 121 sitting Fetus Heart Rate Present Fetus Movement Comments reviewed blood sugars fastin g ok, meals some elevated, 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 lu, start metformin 500mg BID, ssm consult, not following diet discussed risks including LGA, lung immaturity and demise, pt needs NSTS and BPP will try and schedule at [facility] due to insurance conflict. precautions and education f/u 2 weeks here , or earlier if needs to do her testing here Flowsheet Date 04/26/2025 Vega Score Blood Edema Fundus Height Fundus Units Glucose Ketones Leukocytes Nitrite Labor Signs Protein Cervic Dilation Cervic Effacement Cervic Station Type Weight in lbs Pre/Post Dialysis Refused Weight 204.049221218769 BP Diastolic BP Location Tested BP Systolic BP Type 78 L arm 116 sitting Fetus Heart Rate Present A 138 Present Fetus Movement A Yes Comments +FM metformin 500mg bid has [facility] appt today with nst bpp will also do that next week plan iol 05/17 at 1200, gbs after may 05, education and precautions f/u as scheduled Flowsheet Date 05/03/2025 Vega Score Blood Edema Fundus Height Fundus Units Glucose Ketones Leukocytes Nitrite Labor Signs Protein Cervic Dilation Cervic Effacement Cervic Station 0cm 50% -2 Type Weight in lbs Pre/Post Dialysis Refused Weight 205.066149845440 BP Diastolic BP Location Tested BP Systolic [...]
--- OUTSIDE RECORDS SUMMARY | 2025-05-03 14:19 | XMS_ITS | Clinical Summary ---
Author Organization [facility] Virtual Care Address [address] [place] [address] Phone Care Team Providers Care Tax Evaluator Name Role Phone No, Physician Primary Care Provider [phone] Allergies Active Allergy Reactions Criticality Noted Date Comments Banana Itching Low 10/22/2023 Medications fluconazole (DIFLUCAN) 150 mg tablet Take one tab now. Repeat in 4 days if symptoms persist. 2 tablet 4 Active acetaminophen (TYLENOL) 325 mg tablet Take 2 tablets (650 mg total) by mouth every 6 (six) hours as needed for pain Active multivitamin tabletIndications :Vitamin Deficiency Prevention Take 1 tablet by mouth senior integration architect before breakfast Active ferrous sulfate 134 mg (27 mg of elemental iron) tabletIndications :Iron Deficiency Anemia Take 1 tablet (134 mg total) by mouth daily with breakfast Active magnesium gluconate 200 mg tabletIndications :hypomagnesemia Take 1 tablet (200 mg total) by mouth senior integration architect before breakfast Active Saccharomyces boulardii (FLORASTOR) 250 mg capsuleIndication s:gi health Take 1 capsule (250 mg total) by mouth senior integration architect before breakfast Active amoxicillin-clavu lanate (Augmentin) 875-125 mg per tablet Take 1 tablet by mouth 2 (two) times a day 20 tablet 4 Active montelukast (SINGULAIR) 10 mg tabletIndications :Mild intermittent asthma without complication,Tray rgic rhinitis, unspecified seasonality, unspecified trigger Take 1 tablet (10 mg total) by mouth nightly 30 tablet 4 Active albuterol HFA (PROVENTIL HFA,VENTOLIN HFA,PROAIR HFA) 90 mcg/actuation inhalerIndication s:Mild intermittent asthma without complication Inhale 2 puffs every 4 (four) hours as needed for wheezing or shortness of breath 1 each 4 Active cetirizine (ZyrTEC) 10 mg tabletIndications :Allergic rhinitis, unspecified seasonality, unspecified trigger Take 1 tablet (10 mg total) by mouth daily 30 tablet 4 Active fluticasone propionate (FLONASE) 50 mcg/actuation nasal sprayIndications: Allergic rhinitis, unspecified seasonality, unspecified trigger Administer 2 sprays into each nostril daily 1 each 5 Active ipratropium (ATROVENT) 42 mcg (0.06 %) nasal spray Administer 2 sprays into each nostril 4 (four) times a day 15 mL 5 Active Active Problems Problem Noted Date Diagnosed Date Pseudophakia of both eyes 10/22/2023 Resolved Problems Problem Noted Date Diagnosed Date Resolved Date Combined forms of age-relate d cataract of left eye 07/24/2023 11/12/2023 Encounters Date Type Department Care Team Description 02/09/2025 Telephone Obstetrics and Gynecology Clinic [facility] 3rd Floor [address] [place] [address] Kristine Gonzalez RN 02/04/2025 Telephone [facility] [address] [facility] [address] [place] [address] Eneida Sheikh MD 02/04/2025 Telephone Obstetrics and Gynecology Clinic [facility] 3rd Floor [address] [place] [address] Tru Shelton 02/03/2025 Telephone [facility] [address] [place] [address] Liudmila Marks transfer of care appt. 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 Cataract bilateral Dry eyes, bilateral Motion sickness Cough Sinusitis Family History Medical History Relation Name Comments pre diabetic Mother Diabetes Mother's Sister Glaucoma Other several family members Anesthesia problems Neg Hx Relation Name Status Comments Maternal Great-Grandmother diabetes Alive Mother Mother's Sister Other several family members Social History Tobacco Use Types Packs/Day Years Used Date Smoking Tobacco: Never Passive Smoke Exposure: Never Smokeless Tobacco: Never Tobacco Cessation:Counseling Given: No AUDIT-C Answer Date Recorded Q1: How often do you have a drink containing alc ohol? Monthly or less 11/12/2023 Q2: How many drinks containi ng alcohol do you have on a typical day when you are drinking? 1 or 2 11/12/2023 Q3: How often do you have si x or more drinks on one occasion? Never 11/12/2023 Personal Safety Answer Date Recorded Have you ever been in or are you currently in a harmful physical or emotional relationship or is someone making you feel afraid or unsafe? Denies 11/12/2023 Comments No Sex and Gender Information Value Date Recorded Sex Assigned at Not on file Legal Sex Female 7:05 PM A&P MECHANIC Gender Identity Female 04/11/2022 7:03 AM A&P MECHANIC Sexual Orientation Straight 04/11/2022 7: 03 AM A&P MECHANIC Last Filed Vital Signs Vital Sign Reading Time Taken Comments Blood Pressure 122/79 11/12/2023 11:12 AM CDT Pulse 61 11/12/2023 11:12 AM CDT Temperature 36.2 C (97.2 F) 11/12/2023 10:50 AM CDT Respiratory Rate 19 11/12/2023 11:12 AM CDT Oxygen Saturation 99% 11/12/2023 11:12 AM CDT Inhaled Oxygen Concentration - - Weight 81.6 kg (180 lb) 10/28/2023 2:45 PM CDT Height 152.4 cm (5') 10/28/2023 2:45 PM CDT Body Mass Index 35.15 10/28/2023 2:45 PM CDT Plan of Treatment Health Maintenance Due Date Last Done Comments Depression Screening 1990 Hepatitis C Screening 1990 Varicella Vaccines (1 of 2 - 13+ 2-dose series) 11/02/2003 Hepatitis B Screening 2008 Regular Well Visit/Exam 18-64 2008 HPV Vaccines (1 - 3-dose SCD M series) 2017 Cervical Cancer Screening 11/26/2022 11/26/2021 Covid-19 Vaccine (3 - 2024-2 6 season) 2025 06/30/2020, 06/12/2020 Influenza Vaccine (#1) 2025 , 02/25/2022 DTaP/Tdap/Td Vaccine (2 - Td or Tdap) 10/13/2034 10/13/2024 Pneumococcal vaccine <65 Aged Out No longer eligible based on patient's age to complete this topic Medical Devices Implanted Type Area Steak Sauce Maker Device Identifier Shelf Expiration Date Model / Serial / Lot [employer] Lens Iol Cna0t0.255 [employer] Cna0t0.255 - [id number] - [id number] Implanted:Qty: 1 on 10/22/2023 by Milton Dumont MD at [facility] Lens Right: Eye [employer] [id number] 12/02/2025 CNA0T0.25 5 / [id number] / [employer] Lens Iol Cna0t0.240 [employer] Cna0t0.240 - [id number] - [id number] Implanted:Qty: 1 on 11/12/2023 by Milton Dumont MD at [facility] Lens Left: Eye [employer] [id number] 02/17/2026 CNA0T0.24 0 / [id number] / Insurance [facility] [employer] [place] [facility] [employer] Address: [address] [place] [address] [facility] Care Teams Tax Evaluator Relationship Specialty Start Date End Date No, Physician PCP - General 10/31/23
[2025-05-03 16:17] LABS: OBXCEM ROM Plus Negative (Negative)
== END 2025-05-03 13:51 | disposition home or self-care (01) ==
LOC: ANHOBOP 14:00 → ANHOBPP 14:02
PROVIDERS: Visit Provider Obstetrics & Gynecology
DX: O42.90 Premature rupture of membranes, unspecified as to length of time between rupture and onset of labor, unspecified weeks of gestation (principal); Z3A.00 Weeks of gestation of pregnancy not specified
CPT/HCPCS: 59025; 84112; 99199